=== PATIENT | female | born 1950 | race Caucasian/White ===

== ENCOUNTER 2019-10-17 06:56 | Outpatient (CLI) | payer MEDICARE, BC, SELFPAY ==
--- NOTE | 2019-10-17 07:16 | MR_ITS ---
WS: [id number] INDICATION: Urinary incontinence TECHNIQUE: MRI of the pelvis without gadolinium enhancement. Coronal T1-T2 and STIR imaging. Axial T1 and T2 and sagittal T2 imaging fat sat FINDINGS: Comparison is made to prior CT 1 05/2019 and [facility]. Again seen is the small periurethral cyst with fistulous tract to the urethra. Periurethral cyst measures 11 mm and appears stable. Mild bladd er wall thickening can be seen with chronic cystitis. Bladder is otherwise normal in appearance. No i nguinal lymphadenopathy. No pelvic lymphadenopathy. Normal distal abdominal aorta. Normal bone marrow signal in the pelvis and sacrum. Rectum and sigmoi d colon are normal in appearance. Moderate degenerative arthritis both hips with joint space narrowin g. Moderate lumbar curve lower lumbar spine with degenerative endplate-type changes at L3-4. Mild dis c bulging L3-L4 and L4-L5. MR/MR pelvis wo con* [id number] IMPRESSION: 1. Again seen is the small left periurethral cyst not significantly changed si nce the prior CT measuring approximately 11 mm today. 2. Mild diffuse bladder wall thickening can be seen with chronic cystitis. Sin dder is otherwise normal in appearance. 3. No inguinal or pelvic lymphadenopathy. 4. Normal sigmoid colon and rectum. 5. Lumbar curve convex left with degenerative endplate-type changes at L3-4.
== END 2019-10-17 06:57 | disposition home or self-care (01) ==
LOC: RADSHAW 07:04
PROVIDERS: Family Provider Family Medicine; Visit Provider Nurse Practitioner Family
DX: R32 Unspecified urinary incontinence (principal); N36.8 Other specified disorders of urethra
CPT/HCPCS: 72195

== ENCOUNTER → 2019-10-18 12:57 | Outpatient (BNVA) | payer MEDICARE, OTHER, SELFPAY | PROVIDERS: Family Provider Family Medicine; PCP Family Medicine; Visit Provider Urology | DX: N39.9 Disorder of urinary system, unspecified (principal); R35.8 Other polyuria; N39.44 Nocturnal enuresis; N39.8 Other specified disorders of urinary system; N39.41 Urge incontinence | CPT/HCPCS: 81001 ==

== ENCOUNTER → 2019-11-07 09:54 | Outpatient (BNVA) | payer MEDICARE, BC, SELFPAY | PROVIDERS: Family Provider Family Medicine; PCP Family Medicine; Visit Provider Specialist | DX: G40.909 Epilepsy, unspecified, not intractable, without status epilepticus (principal); Z87.891 Personal history of nicotine dependence | CPT/HCPCS: 99214 ==

== ENCOUNTER 2019-11-07 11:48 | Outpatient (CLI) | payer MEDICARE, BC, SELFPAY ==
--- NOTE | 2019-11-07 12:00 | XR_ITS ---
WS: [id number] Thoracic spine, 3 views, 11/07/2019 Clinical Data: scoliosis Comparison: None. Findings: No compression fractures are seen. The disc heights are normal. There is a slight dextroscoliosis. Anterior osteoarthritic changes present at all vertebral body leve ls. Osteoporosis is seen. There are clips in the right upper quadrant from a cholecystectomy. XR/XR thoracic spine 3V* [id number] Impression: 1. Osteoarthritis and osteoporosis. 2. Dextroscoliosis.
--- NOTE | 2019-11-07 12:00 | XR_ITS ---
WS: [id number] Lumbar spine, 3 views, 11/07/2019 Clinical Data: scoliosis Comparison: None. Findings: No compression fractures or subluxation is seen. There is a levorotoscoliosis.Degenerative disc narro wing is present at L2-L3, L3-L4 and L5-S1. Anterior osteoarthritic spurring is present from L2 throug h L5. There is loss of the normal lordotic curvature. The transverse processes and SI joints are not remarkable. There is a large amount of fecal material throughout colon. Clips in the right upper quad rant from a cholecystectomy are seen. XR/XR lumbar spine 2-3V* [id number] Impression: 1. Levorotoscoliosis. 2. Osteoarthritis and degenerative disc disease from L2 through L5.
--- NOTE | 2019-11-07 12:00 | XR_ITS ---
WS: [id number] Left hip, AP and frog leg, AP pelvis, 11/07/2019 Clinical Data: hip pain Comparison: None. Findings: No fractures or dislocations are seen. The hip joints are intact. The soft tissues are not remarkable . The adjacent pelvis is normal. The right hip show sclerosis and narrowing. The left hip shows mild narrowing but no significant sclerosis of the acetabulum. The SI joints and pubic symphysis are unremarkable. Osteoarthritic change of the lower lumbar vertebr al bodies is present. XR/XR hip LT 2-3V wo/w pel* [id number] Impression: 1. Narrowing and sclerosis of the right hip. 2. Mild narrowing of the left hip.
== END 2019-11-07 11:49 | disposition home or self-care (01) ==
LOC: RAD 11:57
PROVIDERS: Family Provider Family Medicine; PCP Family Medicine; Visit Provider Specialist
DX: M41.84 Other forms of scoliosis, thoracic region (principal); M47.894 Other spondylosis, thoracic region; M81.0 Age-related osteoporosis without current pathological fracture; M41.86 Other forms of scoliosis, lumbar region; M47.896 Other spondylosis, lumbar region; M25.552 Pain in left hip
CPT/HCPCS: 72072; 72100; 73502

== ENCOUNTER → 2020-03-06 11:25 | Outpatient (BNVA) | payer MEDICARE, BC, SELFPAY | PROVIDERS: Family Provider Family Medicine; PCP Family Medicine; Visit Provider Nurse Practitioner Family | DX: M25.562 Pain in left knee (principal) | CPT/HCPCS: 73560 ==

== ENCOUNTER → 2020-04-03 10:58 | Outpatient (BNVA) | payer MEDICARE, OTHER, SELFPAY | PROVIDERS: Family Provider Family Medicine; PCP Family Medicine; Visit Provider Specialist | DX: S86.912A Strain of unspecified muscle(s) and tendon(s) at lower leg level, left leg, initial encounter (principal); G40.219 Localization-related (focal) (partial) symptomatic epilepsy and epileptic syndromes with complex partial seizures, intractable, without status epilepticus; M48.061 Spinal stenosis, lumbar region without neurogenic claudication | CPT/HCPCS: 99214 ==

== ENCOUNTER 2020-04-04 11:20 | Outpatient (CLI) | payer MEDICARE, OTHER, SELFPAY ==
--- NOTE | 2020-04-04 11:30 | MM_ITS ---
WS: [id number] Bilateral screening digital mammogram, 04/04/2020 Clinical Data: screening mammogram Comparison: 02/16/2017, 07/17/2015, 06/17/2010, 11/23/2006. Findings: The breast parenchymal pattern shows fat replacement. No spiculated masses or clustered calcification s are seen. There are no secondary signs of carcinoma. MM/[place] [id number] Impression: 1. Negative bilateral mammogram unchanged. 2. Recommend annual screening mammograms. BIRADS: 1-Negative FOLLOW UP: 1 Year Follow-up The CAD billing checker was used.
== END 2020-04-04 11:21 | disposition home or self-care (01) ==
LOC: RADSHAW 11:27
PROVIDERS: PCP Family Medicine; Visit Provider Family Medicine
DX: Z12.31 Encounter for screening mammogram for malignant neoplasm of breast (principal)
CPT/HCPCS: 77067

== ENCOUNTER 2020-04-11 15:54 | Outpatient (CLI) | payer MEDICARE, OTHER, SELFPAY ==
--- NOTE | 2020-04-11 16:00 | MR_ITS ---
WS: [id number] MRI LEFT KNEE NONCONTRAST TECHNIQUE: Axial PD, coronal PD fat sat, coronal PD, sagittal PD, and sagittal PD fat-sat images obta ined. CLINICAL INFORMATION: M25.569 Pain in unspecified knee COMPARISON: None. FINDINGS: Distal quadriceps and patella tendons are intact. Slightly hypertrophic patella. Small suprapatellar effusion. Anterior and posterior cruciate ligament are intact. Chronic thinning of the medial and lateral meniscus. Horizontal tear involving the lateral meniscus e xtending to the articular surface posterior horn. Chronic intrasubstance signal abnormality involving the medial meniscus. Moderate chondromalacia patella. No subchondral edema. Normal medial and lateral patellar retinaculum . Small popliteal cyst. Small popliteal cyst measures 1.5 x 1.0 cm. Medial and lateral collateral lig aments appear intact. No significant subchondral edema along the medial or lateral tibial plateau. MR/MR knee LT wo con* [id number] IMPRESSION: 1. Moderate degenerative arthritis with medial and lateral joint space narrowi ng. 2. Hypertrophic patella with grade III chondromalacia. No subchondral edema. S lightly hypertrophic patella. Small suprapatellar effusion. 3. Anterior and posterior cruciate ligaments are intact. 4. Horizontal tear involving the lateral meniscus extending to the posterior h orn articular surface. Chronic intrasubstance signal abnormality involving the medial meniscus. 5. Small popliteal cyst measuring 1.5 x 1.0 CM.
--- NOTE | 2020-04-11 16:45 | MR_ITS ---
WS: [id number] MRI LUMBAR SPINE NONCONTRAST TECHNIQUE: Sagittal T1, T2 and STIR imaging. Axial T1 and T2 imaging. CLINICAL INFORMATION: R26.9 Unspecified abnormalities of gait and mobility COMPARISON: None. FINDINGS: Mild lumbar curve. No acute compression. Degenerative disc disease L3-L4 and L4-L5 with endplate dege nerative changes L3-4. L1-L2: Normal. L2-L3: Mild disc bulging with slight effacement of ventral thecal sac. Slight impingement on the righ t subarticular recess and traversing right L3 nerve root. Mild right and no significant left foramina l narrowing. Mild to moderate facet arthropathy. L3-L4: Disc osteophyte complex with endplate ridging. Central disc protrusion with impingement subart icular recess. Moderate central canal stenosis. Mild right and no significant left foraminal narrowin g. Moderate facet arthropathy. L4-L5: Disc osteophyte complex with endplate ridging. Impingement traversing left L5 nerve root. Mild to moderate left and no significant right foraminal narrowing. Moderate facet arthropathy. L5-S1: No significant disc bulging. Spinal canal and foramen are patent. Mild facet arthropathy. Visualized pelvic bony structures: Normal. Paravertebral soft tissues: Normal. MR/MR lumbar spine wo con* [id number] IMPRESSION: 1. Mild lumbar curve. No acute compression. Disc bulging worse at L3-L4 L4-L5. Slight anterolisthesis L3 on L4. 2. Moderate central canal stenosis L3-4 with shallow central disc protrusion a nd impingement on the subarticular recess bilaterally. 3. Mild central canal stenosis L4-5 with impingement traversing left L5 nerve root and subarticular recess. 4. Mild to moderate right L3-4 and left L4-5 foraminal narrowing. 5. Moderate facet arthropathy worse at L3-L4 and L4-L5. 6. Annular bulging L2-3 with impingement traversing right L3 nerve root with m ild right foraminal narrowing.
== END 2020-04-11 15:55 | disposition home or self-care (01) ==
LOC: RADSHAW 16:02
PROVIDERS: PCP Family Medicine; Visit Provider Specialist
DX: M25.562 Pain in left knee (principal); R26.9 Unspecified abnormalities of gait and mobility; M48.061 Spinal stenosis, lumbar region without neurogenic claudication; M51.26 Other intervertebral disc displacement, lumbar region; M47.816 Spondylosis without myelopathy or radiculopathy, lumbar region; M17.12 Unilateral primary osteoarthritis, left knee; S83.282A Other tear of lateral meniscus, current injury, left knee, initial encounter; M71.22 Synovial cyst of popliteal space [Baker], left knee; M22.42 Chondromalacia patellae, left knee; X58.XXXA Exposure to other specified factors, initial encounter
CPT/HCPCS: 72148; 73721

== ENCOUNTER 2020-05-02 09:00 | Day surgery (SDC) | payer MEDICARE, OTHER, SELFPAY ==
[2020-05-01 09:39] VITALS: BMI 37.9
[2020-05-02] VITALS (10 sets, daily range): BP systolic 107–169; BP diastolic 53–98; PULSE 60–81; RESP 16–18; TEMP 36.3–37.3; O2SAT 90–99
--- NOTE | 2020-05-02 09:25 | W.PM.OPSUD ---
Surgery/Procedure H&P Update DATE OF PROCEDURE: May 02, 2020 DATE H&P PERFORMED: 04/16/20 PREOP DIAGNOSIS: LEFT LATERAL MENISCAL TEAR PLANNED PROCEDURE: Operation Date: 05/02/20 10:20 Proposed Procedures p Knee Arthroscopy left [id number] S83.282Awith lateral meniscectomy(Left) - Grant Brown MD
[2020-05-02] MEDS: sodium chloride 0.9% 1,000 ML 30 ML IV (09:36)
--- NOTE | 2020-05-02 10:14 | ANES.PREANE2 ---
Pre-Anesthetic Assessment Pre-Anesthetic Assessment: Height/Weight: Height 1.68 m Weight 106.594 kg Temp Pulse Resp BP Pulse Ox 99.1 F 66 18 169/98 96 05/02/20 09:35 05/02/20 09:35 05/02/20 09:35 05/02/20 09:35 05/02/20 09:35 Preop Diagnosis: LEFT LATERAL MENISCAL TEAR Proposed Procedure: Operation Date: 05/02/20 10:20 Proposed Procedures p Knee Arthroscopy left [id number] S83.282Awith lateral meniscectomy(Left) - Grant Brown MD Familial anesthetic complications: none Was Beta Liz taken within 24 hours: Yes Last intake: Intake Last Liquid Date 05/01/20 Last Liquid Time 21:00 Last Solid Date 05/01/20 Last Solid Time 21:00 Social: Social History: No alcohol and No tobacco Exam: Pre-Anes Outpt Exam: alert, oriented x 3, clear to auscultation bilaterally and regular rate & rhythm Airway: Cervical ROM: WNL MP: 3 Dentition: Chipped Pulmonary: Pulmonary: None reported CV/HEM: CV/HEM: HTN GI: GI: GERD Comments: chronic pancreatitis Metabolic: Metabolic: Morbid obesity Neuropsych: Neuropsych: Seizure Comments: lupus Anesthetic Plan: ASA status: 2 Anesthesia: General Risk of > 500 ml blood loss (7ml/kg in children): No Meds/Allergies Current Medications: Current Medications Generic Name Dose Route Start Last Admin Trade Name Freq PRN Reason Stop Dose Admin Sodium Chloride 1,000 mls @ 30 ml s/hr 05/02/20 07:45 05/02/20 09:36 Sodium Chloride 0.9% IV 05/03/20 07:44 30 mls/hr .Q24H LUISA Administration PFSH Anesthesia PFSH: Medical History Diabetes Nocturnal and diurnal enuresis Polyuria Urgency incontinence Vaginal voiding Surgical History H/O breast biopsy H/O cataract extraction S/P inguinal hernia repair Family History Mother , at age 72 Hypertension Family/Other Diabetes Stroke Father , at age 90 No problems noted. Social History (Reviewed 05/01/20 @ 09:32 by Page Cabral Smoking and tobacco status: former smoker Quit status (tobacco): has quit using tobacco Year quit tobacco: 1989 Alcohol intake: never Marital status: Current occupational status: retired History of recent travel: No Data Anesthesia Cardiac Studies: No Data to Display
[2020-05-02] MEDS: morphine 4 mg/mL SDV 1 mL 8 MG IM (10:46)
--- NOTE | 2020-05-02 11:24 | PM.OP ---
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 She had generalized thinning over the lateral aspect of the medial femoral condyle involving perhaps 50% of the thickness of the cartilage with unstable peripheral flaps and fissures. She had mild generalized thinning fibrillation over the medial facet of the patella Condition: stable Disposition: PACU Procedure: Ms. Brasher was taken to the operating room and given a general anesthesia. She was prepped and draped in the supine position with a tourniquet on the left thigh. She was given 2 g of Ancef. The knee was infiltrated with 30 cc of 0.5% Marcaine and 10 mg of morphine. A timeout was performed. The knee was initially entered through a standard inferior medial and inferior lateral portal. The diagnostic portion of the osseous performed. Initial attention was paid the medial joint. Areas of thinning with peripheral flaps of cartilage were seen over the lateral aspect the medial femoral condyle utilizing an incisor shaver and [employer]hew Werewolf probe peripheral unstable cartilage is debrided back to a stable rim. And no point was exposed subchondral bone identified. The leg was then placed in a [id number] position the lateral compartment was inspected revealing complex tearing of the lateral meniscus. Utilizing a basket initially the central unstable flap was debrided. This brought us back to an area of the superior and inferior horizontal cleavage which was debrided back as well decompressed 50% of the posterior lateral meniscus behind. The rim was cleaned up with an incisor shaver and [employer]hew Werewolf wand leaving a stable base of tissue. Attention was focused on the patella. Utilizing the Douglas [employer] Nephew Werewolf probe the medial facet of patella was lightly debrided back with a werewolf probe. The area of cartilage damage appeared quite superficial and no exposed subchondral bone was identified. The knee was irrigated with saline. Portals were closed with 3-0 Prolene. Sterile dressings were applied. The patient was extubated and taken to recovery in stable condition.
[2020-05-02] MEDS: fentaNYL 50 mcg/mL INJ 2mL IVP (11:29)
--- NOTE | 2020-05-02 12:07 | SUR.PHASEI ---
1144 PT AWAKE ALERT TO OPS PER CART PT ASSISTED UP TO BSC PT ALERT AND TALKATIVE WITH OPS NURSE KODAK.
[2020-05-02] MEDS: oxyCODONE-APAP 5-325 mg Tablet 1 TAB PO (12:19)
--- NOTE | 2020-05-02 16:05 | ANE.PACU2 ---
Inpatient post-anesthesia follow up: Airway intact: Yes Vital signs: Temperature 97.3 F Pulse Rate 60 Respiratory Rate 18 Blood Pressure 126/78 Pulse Oximetry 93 Oxygen Delivery Me thod Room Air Oxygen Flow Rate 8 Fraction of Inspir ed Oxygen Hydration adequate: Yes Nausea and vomiting: No Pain level: 1 Mental status: Baseline
== END 2020-05-02 13:57 | disposition home or self-care (01) ==
PROVIDERS: PCP Family Medicine; Visit Provider Orthopaedic Surgery
PROC: (CPT 29870; principal; 2020-05-02 10:20)
DX: S83.272A Complex tear of lateral meniscus, current injury, left knee, initial encounter (principal); I10 Essential (primary) hypertension; E66.01 Morbid (severe) obesity due to excess calories; M32.9 Systemic lupus erythematosus, unspecified; K86.1 Other chronic pancreatitis; E11.9 Type 2 diabetes mellitus without complications; X58.XXXA Exposure to other specified factors, initial encounter; Z87.891 Personal history of nicotine dependence
CPT/HCPCS: 29881; 12345; J0690; J1100; J1885; J2250; J2270; J2370; J2405; J2704; J3010; J3490; J7030

== ENCOUNTER 2020-05-22 06:00 | Outpatient (RCR) | payer MEDICARE, OTHER, SELFPAY | END 2020-06-12 23:59 | disposition home or self-care (01) | LOC: TPT 06:00 | PROVIDERS: PCP Family Medicine; Referring Provider Orthopaedic Surgery; Visit Provider Orthopaedic Surgery | DX: Z47.89 Encounter for other orthopedic aftercare (principal) | CPT/HCPCS: 97161 ==

== ENCOUNTER 2020-06-25 14:27 | Emergency (ER) | payer MEDICARE, BC, SELFPAY ==
[2020-06-25 14:33] VITALS: BP 151/87; PULSE 91; RESP 20; TEMP 36.8; O2SAT 99; BMI 37.9
--- NOTE | 2020-06-25 16:29 | ECG_ITS ---
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 Measurements Intervals [place] Rate: 79 P: 16 NC: 185 QRS: -19 QRSD: 102 T: 12 QT: 351 QTc: 403 Interpretive Statements SINUS RHYTHM MODERATE VOLTAGE CRITERIA FOR LVH, CONSIDER NORMAL VARIANT [MEETS CRITERIA IN ONE OF: R(aVL), S(V1), R(V5), R(V5/V6)+S(V1)] No previous ECG available for comparison Electronically Signed On 06-27-2020 20:37:51 CDT by Reza Peralta M.D. [id number]
[2020-06-25 16:44] VITALS: RESP 16; O2SAT 97
[2020-06-25 16:44] LABS: Basophils # 0.1 10^3/uL (0.0-0.1); Basophils % 0.8 %; Eosinophils % 0.4 %; Hematocrit 42.8 % (37.0-47.0); Hemoglobin 13.9 g/dL (11.5-15.3); Lymphocytes # 0.3 10^3/uL (0.8-4.8); Lymphocytes % 4.6 %; Mean Corpuscular HGB Conc 32.5 g/dL (30.0-36.0); Mean Corpuscular Hemoglobin 27.9 pg (28.0-34.0); Mean Corpuscular Volume 85.9 fL (81-99); Mean Platelet Volume 10.5 fL (7.4-10.4); Monocytes # 0.9 10^3/uL (0.2-0.9); Monocytes % 12.5 %; Neutrophils # 6.04 10^3/uL (1.8-7.7); Neutrophils % 81.4 %; Nucleated Red Blood Cells % 0 %; Platelet Count 317 10^3/cmm (130-400); Red Blood Count 4.98 10^6/uL (4.1-5.3); Red Cell Distribution Width 13.6 % (12.1-15.1); White Blood Count 7.4 10^3/uL (4.0-10.0)
[2020-06-25] MEDS: sodium chloride 0.9% 500 ML 999 ML IV (16:44)
[2020-06-25] MEDS: ondansetron 2 mg/ML SDV 2 mL 4 MG IVP (16:44)
[2020-06-25] MEDS: HYDROmorphone 1 mg/mL INJ 1 mL 0.5 MG IVP (16:44)
--- NOTE | 2020-06-25 17:03 | ED_ITS ---
HPI - Abdominal Pain General: Chief Complaint: Abdominal Pain Stated Complaint: N/V, PANCREATITIS Time Seen by Provider: 06/25/20 16:20 History of Present Illness: HPI narrative: This patient is a 69-year-old female who presents today with upper abdominal pain. She states she has a history of pancreatitis and this feels the same. Said she has been having episodes off and on over the past 4 months but usually they last 10 or 15 minutes and then go away. Today she had an episode about 1030 that lasted longer than usual. It went away and then came back about 1230 and has been constant since then. She describes pain in her epigastrium that radiates around her right side and up into her chest. She does not have a gallbladder. She has been told that her pancreatitis is from some enzymes that she does not have. She has a history of lupus as well. She takes Creon. She had an endoscopy a few years ago and they told her she had some sort of spot at the junction of her esophagus and stomach that was festered up but she was not given any treatment for it. She was having similar symptoms then. She has had vomiting and diarrhea. No fevers. No cough. MD elicited complaint: abdominal pain Pertinent past history: other (Pancreatitis, possibly gastric ulcer) Onset (ago): month(s) (Intermittent episodes for the past 4 months, constant since 1230) Pain Consistency: constant and intermittent Location: Epigastric Severity: severe Quality: aching and sharp Radiation: RUQ, back and chest Migration to: no migration Exacerbating factors: eating and movement Relieving factors: nothing Associated Symptoms: Reports diarrhea and vomiting; Denies chills and fever(s) Review of Systems General: Reports: 10 or more systems reviewed and unremarkable except in HPI and below Const: Reports: fatigue and malaise; Denies: fever(s) or chills Eyes: Denies: change in vision ENMT: Denies: odynophagia Card: Denies: chest pain or swelling of feet/ankles Resp: Denies: dyspnea, productive cough or non-productive cough GI: Reports: vomiting and diarrhea : Denies: flank pain or difficulty voiding Musc: Denies: neck pain or back pain Skin/Breast: Denies: rash Neuro: Denies: headache(s), numbness in extremities or weakness in extremities Samy/Lymph: Denies: easy bruising or easy bleeding PFSH ED PFSH: Medical History Diabetes Nocturnal and diurnal enuresis Polyuria Urgency incontinence Vaginal voiding Surgical History H/O breast biopsy H/O cataract extraction S/P inguinal hernia repair Family History Mother , at age 72 Hypertension Family/Other Diabetes Stroke Father , at age 90 No problems noted. Social History Smoking and tobacco status: former smoker Quit status (tobacco): has quit using tobacco quit tobacco: 1989 Alcohol intake: never Marital status: Current occupational status: retired History of recent travel: No Physical Exam Const: COMMON NORMALS: patient oriented x3, no limitations and alert GENERAL APPEARANCE: cooperative HENMT: HEAD & SCALP: normal to inspection FACE & SINUS: normal facial exam Eye: GENERAL EYE: appearance normal, both eyes and all related structures Neck/C-Spine: COMMON NORMALS: supple, no meningeal signs and no JVD Chest: COMMONS NORMALS: normal inspection of the chest Resp: COMMON NORMALS: normal respiratory effort, No use of accessory muscles and clear to auscultation bilaterally AUSCULTATION: clear to auscultation bilaterally Cardio: COMMON NORMALS: no JVD, regular rate, regular rhythm and No murmurs present (Cardio) RATE: regular rate RHYTHM: regular rhythm GI: COMMON NORMALS: Normal to inspection, nondistended, normoactive bowel sounds present INSPECTION: Yes normal to inspection AUSCULTATION: Yes normoactive bowel sounds PALPATION: Yes Tenderness to palpation present (GI) (Epigastric) Details: RUQ Back/Pelvis: COMMON NORMALS: thoracic and lumbar spine normal to inspection Extremity: COMMON NORMALS: normal to inspection Neuro: COMMON NORMALS: patient oriented x3, moves all extremities, no focal motor deficits and no sensory deficits noted SENSORIUM/ORIENTATION: Yes alert MENINGEAL SIGNS: Yes no meningeal signs Psych: COMMON NORMALS: mental status grossly normal, cooperative and normal affect Skin: COMMON NORMALS: no rashes or lesions noted and turgor normal GENERAL SKIN EXAM: no rashes or lesions noted and turgor normal Course ED course: Patient with a history of pancreatitis. She was feeling better after treatment in the ER. I changed her meds to pantoprazole from famotidine. She has good follow-up. She understands to return if she cannot tolerate fluid her pain is out of control. Vital Signs: Vital signs: Vital Signs Temperature 98.2 F 06/25/20 14:33 Pulse Rate 75 06/25/20 19:08 Respiratory Rate 18 06/25/20 19:08 Blood Pressure 141/88 06/25/20 19:08 Pulse Oximetry 91 06/25/20 19:08 MDM - Abdominal Pain Lab Data: Labs: Lab Results 06/25/20 06/25/20 06/25/20 Range/Units 16:32 16:32 16:32 WBC 7.4 (4.0-10.0) 10^3/ uL RBC 4.98 (4.1-5.3) 10^6/u L Hgb 13.9 (11.5-15.3) g/dL Hct 42.8 (37.0-47.0) % MCV 85.9 (81-99) fL MCH 27.9 L (28.0-34.0) pg MCHC 32.5 (30.0-36.0) g/dL RDW 13.6 (12.1-15.1) % Plt Count 317 (130-400) 10^3/c mm MPV 10.5 H (7.4-10.4) fL Neut % (Auto) 81.4 % Lymph % (Auto) 4.6 % [place] % (Auto) 12.5 % Eos % (Auto) 0.4 % Baso % (Auto) 0.8 % Neut # (Auto) 6.04 (1.8-7.7) 10^3/u L Lymph # (Auto) 0.3 L (0.8-4.8) 10^3/u L [place] # (Auto) 0.9 (0.2-0.9) 10^3/u L Eos # (Auto) 0.0 (0.0-0.8) 10^3/u L Baso # (Auto) 0.1 (0.0-0.1) 10^3/u L Nucleated RBC % (a uto) 0 % Nucleated RBCs # 0.0 /100WBC Sodium 137 (136-145) mmol/L Potassium 4.1 (3.5-5.1) mmol/L Chloride 101 (98-107) mmol/L Carbon Dioxide 23 (22-29) mmol/L Anion Gap 17.1 (5-19) BUN 8 (8-23) mg/dL Creatinine 0.7 (0.5-0.9) mg/dL GFR Calculation 83.5 L (90-130) mL/min Glucose 108 (65-115) mg/dL Calculated Osmolal ity 283 L (285-295) mOsm/k g Lactic Acid 1.2 (0.5-2.2) mmol/L Calcium 9.6 (8.5-10.5) mg/dL Total Bilirubin 0.3 (0.15-1.2) mg/dL AST 15 (0-32) U/L ALT 9 (0-33) U/L Alkaline Phosphata se 96 (35-105) IU/L Troponin T Baselin e (0-10) ng/L Troponin T 120 Min [place] (0-10) ng/L Delta Troponin T (0-10) ABS# Total Protein 7.0 (6.6-8.7) g/dL Albumin 4.4 (3.5-5.2) g/dL Globulin 2.6 (1.3-4.6) g/dL Lipase 24 (13-60) U/L Urine Color (Yellow) Urine Appearance (CLEAR) Urine pH (5-7) Ur Specific Gravit y (1.005-1.030) Urine Protein (Negative) Urine Glucose (UA) (Normal) Urine Ketones (Negative) Urine Blood (Negative) Urine Nitrate (Negative) Urine Bilirubin (Negative) Urine Urobilinogen (Negative) mg/dL Ur Leukocyte Maria Luisa ase (Negative) Urine RBC (0-2) /hpf Urine WBC (0-5) /hpf Ur Squamous Epith Cells (0-5) /hpf Amorphous Sediment Urine Bacteria (NONE) /hpf 06/25/20 06/25/20 06/25/20 Range/Units 16:32 18:46 19:17 WBC (4.0-10.0) 10^3/ uL RBC (4.1-5.3) 10^6/u L Hgb (11.5-15.3) g/dL Hct (37.0-47.0) % MCV (81-99) fL MCH (28.0-34.0) pg MCHC (30.0-36.0) g/dL RDW (12.1-15.1) % Plt Count (130-400) 10^3/c mm MPV (7.4-10.4) fL Neut % (Auto) % Lymph % (Auto) % [place] % (Auto) % Eos % (Auto) % Baso % (Auto) % Neut # (Auto) (1.8-7.7) 10^3/u L Lymph # (Auto) (0.8-4.8) 10^3/u L [place] # (Auto) (0.2-0.9) 10^3/u L Eos # (Auto) (0.0-0.8) 10^3/u L Baso # (Auto) (0.0-0.1) 10^3/u L Nucleated RBC % (a uto) % Nucleated RBCs # /100WBC Sodium (136-145) mmol/L Potassium (3.5-5.1) mmol/L Chloride (98-107) mmol/L Carbon Dioxide (22-29) mmol/L Anion Gap (5-19) BUN (8-23) mg/dL Creatinine (0.5-0.9) mg/dL GFR Calculation (90-130) mL/min Glucose (65-115) mg/dL Calculated Osmolal ity (285-295) mOsm/k g Lactic Acid (0.5-2.2) mmol/L Calcium (8.5-10.5) mg/dL Total Bilirubin (0.15-1.2) mg/dL AST (0-32) U/L ALT (0-33) U/L Alkaline Phosphata se (35-105) IU/L Troponin T Baselin e 6 (0-10) ng/L Troponin T 120 Min [place] 6.00 (0-10) ng/L Delta Troponin T 0 (0-10) ABS# Total Protein (6.6-8.7) g/dL Albumin (3.5-5.2) g/dL Globulin (1.3-4.6) g/dL Lipase (13-60) U/L Urine Color Yellow (Yellow) Urine Appearance Clear (CLEAR) Urine pH 5 (5-7) Ur Specific Gravit y 1.020 (1.005-1.030) Urine Protein Neg (Negative) Urine Glucose (UA) Norm (Normal) Urine Ketones Negative (Negative) Urine Blood 2+ H (Negative) Urine Nitrate Negative (Negative) Urine Bilirubin Neg (Negative) Urine Urobilinogen Norm (Negative) mg/dL Ur Leukocyte Maria Luisa ase Negative (Negative) Urine RBC 5-10 H (0-2) /hpf Urine WBC None (0-5) /hpf Ur Squamous Epith Cells 40-55 H (0-5) /hpf Amorphous Sediment Not Reportable Urine Bacteria Trace (NONE) /hpf Discharge Plan Discharge Patient Disposition: Home Clinical Impression: Abdominal pain Qualifiers: Abdominal location: epigastric Qualified Code(s): R10.13 - Epigastric pain Condition: Stable Prescriptions: New pantoprazole 40 mg tablet,delayed release (DR/EC) 40 mg PO DAILY 28 Days Qty: 30 RF: 0 Discontinued famotidine 40 mg tablet 40 mg PO DAILY RF: 0 No Action fluticasone propionate 50 mcg/actuation spray,suspension 1 spray INTRANASAL .prn RF: 0 (DME) cane Device See Rx Instructions .ROUTE .MEDSUPPLY Qty: 1 RF: 0 betamethasone acet,sod phos [Celestone Soluspan] 6 mg/mL suspension 6 mg INTRA-FAY ONCE Qty: 1 RF: 0 bupivacaine (PF) 0.25 % (2.5 mg/mL) solution 2.5 mg INTRA-FAY ONCE Qty: 2 RF: 0 lidocaine (PF) 10 mg/mL (1 %) solution 10 mg INTRA-FAY ONCE Qty: 2 RF: 0 Gel-One 30 mg/3 mL syringe 30 mg INTRA-FAY ONCE Qty: 3 RF: 0 Vimpat 150 mg tablet 150 mg PO BID Qty: 60 RF: 5 losartan 25 mg tablet See Rx Instructions .ROUTE .COMPLEX Qty: 180 RF: 0 oxybutynin chloride 5 mg tablet 5 mg PO BID Qty: 60 RF: 2 gabapentin 100 mg capsule 100 mg PO BID Qty: 60 RF: 4 metoprolol tartrate 25 mg tablet See Rx Instructions .ROUTE .COMPLEX Qty: 60 RF: 2 venlafaxine 75 mg capsule,extended release 24hr 75 mg PO DAILY Qty: 90 RF: 0 trazodone 100 mg tablet 100 mg PO DAILY Qty: 30 RF: 0 Creon 24,000-76,000 -120,000 unit capsule,delayed release(DR/EC) 1 cap PO DAILY RF: 0 Percocet 5-325 mg tablet 1 tab PO Q4H PRN (Reason: pain) Qty: 30 RF: 0 Discharge Orders: Discharge Order (Routine); Ordered 06/25/20 Ordered By: Daylin Seymour Referrals: Daylin Seymour MD [Emergency Provider] - Kendra Dixon MD [Primary Care Provider] - Discharge Diet: Low Fat and Clear Liquid Discharge Activity: Resume usual activity Patient Instructions: Abdominal Pain (ED) Activity Restrictions/Additional Instructions: Gradually increase diet from clear liquids to low fat. Return to the ED if worse pain, vomiting, fever or any other new or worse symptoms. Follow up with your doctor for further evaluation if not improving. Discharge Date/Time: 06/25/20 19:55 Coding Level of Care Code ED Online [employer]ist for Chg Fwd Exam Comprehensive
[2020-06-25 17:14] LABS: Alanine Aminotransferase 9 U/L (0-33); Albumin Level 4.4 g/dL (3.5-5.2); Alkaline Phosphatase 96 IU/L (35-105); Aspartate Amino Transferase 15 U/L (0-32); Blood Urea Nitrogen 8 mg/dL (8-23); Calcium 9.6 mg/dL (8.5-10.5); Carbon Dioxide 23 mmol/L (22-29); Chloride 101 mmol/L (98-107); Creatinine Clr Calc Pharmacy 84.2605; Globulin 2.6 g/dL (1.3-4.6); Glomerular Filtration Rate 83.5 mL/min (90-130); Glucose 108 mg/dL (65-115); Lipase 24 U/L (13-60); Osmolality Calculated 283 mOsm/kg (285-295); Sodium 137 mmol/L (136-145); Total Bilirubin 0.3 mg/dL (0.15-1.2)
[2020-06-25 17:15] LABS: Lactic Sepsis W/Reflex 1.2 mmol/L (0.5-2.2)
[2020-06-25 17:16] LABS: Troponin(5th) Baseline 6 ng/L (0-10)
[2020-06-25 17:17] LABS: Anion Gap 17.1 (5-19); Potassium 4.1 mmol/L (3.5-5.1)
[2020-06-25] MEDS: pantoprazole 40 mg SDV 80 MG IVP (18:50)
[2020-06-25] MEDS: lidocaine 2% viscous 15 ML, aluminum-mag hydrox-simethicon 30 ML, sucralfate oral liq 1 GM PO (18:50)
[2020-06-25 19:08] VITALS: BP 141/88; PULSE 75; RESP 18; O2SAT 91
[2020-06-25 19:19] LABS: Troponin 5 2HR Delta 0 ABS# (0-10)
[2020-06-25 19:47] LABS: Add Urine Microscopic? YES; Bilirubin Urine Neg (Negative); Blood Urine 2+ (Negative); Glucose Urine UA Norm (Normal); Ketones Urine Negative (Negative); Leukocyte Esterase Urine Negative (Negative); Nitrate Urine Negative (Negative); Protein Urine Neg (Negative); Urine Appearance Clear (CLEAR); Urine Color Yellow (Yellow); Urobilinogen Urine Norm (Negative); pH Urine 5 (5-7)
[2020-06-25 19:55] LABS: Bacteria Urine TRACE /hpf
[2020-06-25 19:57] LABS: Add Urine Culture? No; Squamous Epithelial Cell Urine 40-55 /hpf (0-5)
== END 2020-06-25 19:55 | disposition home or self-care (01) ==
PROVIDERS: Nurse Practitioner Family; Emergency Provider Emergency Medicine; PCP Family Medicine
DX: R10.13 Epigastric pain (principal); E11.9 Type 2 diabetes mellitus without complications; Z87.891 Personal history of nicotine dependence
CPT/HCPCS: 12345; 80053; 81001; 83605; 83690; 84484; 85025; 93005; 96361; 96374; 96375; 99283; 99284; C9113; J1170; J2405; J7040

== ENCOUNTER 2020-07-01 09:43 | Inpatient (IN) | payer MEDICARE, BC, SELFPAY ==
[2020-07-01] VITALS (8 sets, daily range): BP systolic 95–184; BP diastolic 49–93; PULSE 69–104; RESP 14–20; TEMP 37.2–38.1; O2SAT 90–97
--- NOTE | 2020-07-01 10:30 | XRR_ITS ---
PROCEDURE INFORMATION: Exam: XR Chest, 1 View Exam date and time: 07/01/2020 10:42 AM Age: 69 years old Clinical indication: Other: Covid symptoms; Prior surgery; Surgery type: Lumpectomy; Additional info: Syncope TECHNIQUE: Imaging protocol: XR of the chest Views: 1 view. COMPARISON: No relevant prior studies available. FINDINGS: Lungs: Unremarkable. No consolidation. Pleural space: Unremarkable. No pleural effusion. No pneumothorax. Heart/Mediastinum: Unremarkable. No cardiomegaly. Bones/joints: Unremarkable. XR/XR chest 1V portable [id number] IMPRESSION: No acute findings.
[2020-07-01 11:31] LABS: Basophils % 0.2 %; Hematocrit 43.4 % (37.0-47.0); Lymphocytes # 0.6 10^3/uL (0.8-4.8); Lymphocytes % 12.3 %; Mean Corpuscular HGB Conc 32.3 g/dL (30.0-36.0); Mean Corpuscular Hemoglobin 27.6 pg (28.0-34.0); Mean Corpuscular Volume 85.4 fL (81-99); Mean Platelet Volume 10.3 fL (7.4-10.4); Monocytes # 0.7 10^3/uL (0.2-0.9); Monocytes % 14.8 %; Neutrophils # 3.58 10^3/uL (1.8-7.7); Neutrophils % 72.5 %; Nucleated Red Blood Cells % 0 %; Platelet Count 224 10^3/cmm (130-400); Red Blood Count 5.08 10^6/uL (4.1-5.3); Red Cell Distribution Width 13.4 % (12.1-15.1); White Blood Count 4.9 10^3/uL (4.0-10.0)
[2020-07-01] MEDS: ondansetron 2 mg/ML SDV 2 mL 4 MG IVP (11:33)
[2020-07-01] MEDS: sodium chloride 0.9% 500 ML 999 ML IV (11:34)
--- NOTE | 2020-07-01 11:34 | W.ED.SOB ---
HPI - SOB/Dyspnea General: Chief Complaint: Shortness of Breath/Dyspnea Stated Complaint: All COVID symptoms except SOB Time Seen by Provider: 07/01/20 10:12 History of Present Illness: HPI Narrative: 69-year-old female patient presents to the emergency department with 10-day history of nausea vomiting diarrhea. She reports diarrhea episodes at least 2-3 times daily. She states difficulty with tolerating p.o. fluids. She reports grandchildren have been ill with COVID-19. She reports partial custody of her grandchildren. She reports has been trying to care for her who is diabetic with similar symptoms. She reports cough increased shortness of breath, worsening symptoms 2 days ago. She reports productive sputum yellow, white. 10 pound weight loss past 10 days. Experiencing dizzy symptoms, worse with exertion, positive lupus per history. MD elicited complaint: shortness of breath, cough and pain with inspiration Pertinent past history: other (Lupus) Onset (ago): day(s) (10) Timing: constant and progressively worsening Severity: moderate Exacerbating factors: nothing Relieving factors: nothing Associated symptoms: Reports chest congestion, cough, diaphoresis, lightheadedness, nausea and vomiting Treatment prior to arrival: none Review of Systems General: Reports: 10 or more systems reviewed and unremarkable except in HPI and below Const: Reports: diaphoresis Eyes: Denies: blurry vision or eye redness ENMT: Denies: throat pain, dental pain or disequilibrium Card: Reports: lightheadedness Resp: Reports: productive cough, change in phlegm color and chest congestion GI: Reports: nausea, vomiting and diarrhea : Denies: difficulty voiding or dysuria Musc: Denies: back pain Skin/Breast: Denies: rash or pruritus Neuro: Reports: headache(s) and weakness in extremities; Denies: behavioral changes Psych: Reports: anxiety (Related to illness); Denies: depression Samy/Lymph: Denies: easy bruising PFSH ED PFSH: Medical History (Updated 07/01/20 @ 16:33 by Daniel Spence MD) Diabetes FH: total abdominal hysterectomy and bilateral salpingo-oophorectomy H/O chronic pancreatitis Nocturnal and diurnal enuresis Polyuria Seizure disorder Urgency incontinence Vaginal voiding Surgical History (Updated 07/01/20 @ 16:20 by Daniel Spence MD) H/O arthroscopic knee surgery H/O breast biopsy H/O cataract extraction H/O shoulder surgery S/P inguinal hernia repair Family History Mother , at age 72 Hypertension Cancer Pancreatic Family/Other Diabetes Stroke Father , at age 90 Cancer Esophageal Brother Cancer Hodgkin's lymphoma Social History Smoking and tobacco status: former smoker Quit status (tobacco): has quit using tobacco Year quit tobacco: 1989 Alcohol intake: never Marital status: Current occupational status: retired History of recent travel: No Physical Exam Const: COMMON NORMALS: no acute distress and alert GENERAL APPEARANCE: well kempt and ill appearing ORIENTATION/CONSCIOUSNESS: Yes awake, Yes oriented to person, Yes oriented to place and Yes oriented to time HENMT: COMMON NORMALS: normocephalic, external ears normal and Normal external nose present HEAD & SCALP: normocephalic FACE & SINUS: normal facial exam, sinuses nontender and face symmetric NOSE: Normal external nose present EXTERNAL EAR: Yes external ears normal MOUTH: other (Dry mucous membranes) THROAT: posterior oropharynx normal Eye: COMMON NORMALS: Equal, round and reactive pupils present and EOMs intact bilaterally GENERAL EYE: appearance normal, both eyes and all related structures PUPIL: Yes Equal, round and reactive pupils present Neck/C-Spine: COMMON NORMALS: full ROM and no lymphadenopathy GENERAL: Yes normal visual inspection and Yes trachea midline CERVICAL SPINE: Yes cervical ROM normal Lymph: LYMPHATIC: no lymphadenopathy noted Chest: COMMONS NORMALS: normal inspection of the chest Resp: COMMON NORMALS: normal respiratory effort EFFORT & INSPECTION: Yes able to speak in complete sentences AUSCULTATION: rhonchi and wheezes Cardio: COMMON NORMALS: regular rhythm, S1 normal heart sound present, S2 normal heart sound present and Peripheral pulses 2+ throughout RHYTHM: regular rhythm HEART SOUNDS: S1 normal heart sound present and S2 normal heart sound present PERIPHERAL PULSES: Peripheral pulses 2+ throughout GI: COMMON NORMALS: Soft to palpation and non-tender INSPECTION: Yes normal to inspection PALPATION: Yes Soft to palpation : COMMON NORMALS: Yes no CVA tenderness BLADDER/KIDNEY EXAM: Yes no CVA tenderness Back/Pelvis: COMMON NORMALS: no CVA tenderness and thoracic and lumbar spine normal to inspection Extremity: COMMON NORMALS: normal to inspection and capillary refill normal Neuro: COMMON NORMALS: no focal motor deficits SENSORIUM/ORIENTATION: Yes alert, Yes oriented to person, Yes oriented to place and Yes oriented to time Psych: COMMON NORMALS: mental status grossly normal, Normal thought process present and cooperative APPEARANCE: Yes well kempt ACTIVITY/MOTOR BEHAVIOR: Yes appropriate eye contact THOUGHT PROCESS: Normal thought process present Skin: COMMON NORMALS: no rashes or lesions noted and turgor normal GENERAL SKIN EXAM: no rashes or lesions noted and turgor normal Course ED course: 69-year-old female patient presents to the emergency department with Covid symptoms. Covid contact, grandchildren. Ill symptoms x10 days. Serology testing pending at this time, case discussed with Dr. Seymour, transfer of care due to possible need of admission. Vital Signs: Vital signs: Vital Signs Temperature 100.5 F H 07/01/20 15:47 Pulse Rate 73 07/01/20 15:47 Respiratory Rate 17 07/01/20 15:47 Blood Pressure 147/65 07/01/20 15:47 Pulse Oximetry 92 07/01/20 15:47 MDM - SOB/Dyspnea Lab Data: Labs: Lab Results 07/01/20 07/01/20 07/01/20 Range/Units 11:10 11:10 11:20 WBC 4.9 (4.0-10.0) 10^3/ uL RBC 5.08 (4.1-5.3) 10^6/u L Hgb 14.0 (11.5-15.3) g/dL Hct 43.4 (37.0-47.0) % MCV 85.4 (81-99) fL MCH 27.6 L (28.0-34.0) pg MCHC 32.3 (30.0-36.0) g/dL RDW 13.4 (12.1-15.1) % Plt Count 224 (130-400) 10^3/c mm MPV 10.3 (7.4-10.4) fL Neut % (Auto) 72.5 % Lymph % (Auto) 12.3 % [place] % (Auto) 14.8 % Eos % (Auto) 0.0 % Baso % (Auto) 0.2 % Neut # (Auto) 3.58 (1.8-7.7) 10^3/u L Lymph # (Auto) 0.6 L (0.8-4.8) 10^3/u L [place] # (Auto) 0.7 (0.2-0.9) 10^3/u L Eos # (Auto) 0.0 (0.0-0.8) 10^3/u L Baso # (Auto) 0.0 (0.0-0.1) 10^3/u L Nucleated RBC % (a uto) 0 % Nucleated RBCs # 0.0 /100WBC Fibrinogen (174-498) mg/dL D-Dimer (0-0.59) ug/mIFE U Sodium (136-145) mmol/L Potassium (3.5-5.1) mmol/L Chloride (98-107) mmol/L Carbon Dioxide (22-29) mmol/L Anion Gap (5-19) BUN (8-23) mg/dL Creatinine (0.5-0.9) mg/dL GFR Calculation (90-130) mL/min Glucose (65-115) mg/dL Calculated Osmolal ity (285-295) mOsm/k g Lactate (0.5-2.2) mmol/L Calcium (8.5-10.5) mg/dL Total Bilirubin (0.15-1.2) mg/dL AST (0-32) U/L ALT (0-33) U/L Alkaline Phosphata se (35-105) IU/L Lactate Dehydrogen ase (135-214) U/L Troponin T Baselin e (0-10) ng/L Troponin T 120 Min [place] (0-10) ng/L Delta Troponin T (0-10) ABS# C-Reactive Protein (0.0-4.9) mg/L Total Protein (6.6-8.7) g/dL Albumin (3.5-5.2) g/dL Globulin (1.3-4.6) g/dL Lipase (13-60) U/L Influenza Type A A g Negative (Negative) Influenza Type B A g Negative (Negative) SARS-CoV-2 Ag (Rap id) Positive H (Negative) 07/01/20 07/01/20 07/01/20 Range/Units 11:20 11:20 11:20 WBC (4.0-10.0) 10^3/ uL RBC (4.1-5.3) 10^6/u L Hgb (11.5-15.3) g/dL Hct (37.0-47.0) % MCV (81-99) fL MCH (28.0-34.0) pg MCHC (30.0-36.0) g/dL RDW (12.1-15.1) % Plt Count (130-400) 10^3/c mm MPV (7.4-10.4) fL Neut % (Auto) % Lymph % (Auto) % [place] % (Auto) % Eos % (Auto) % Baso % (Auto) % Neut # (Auto) (1.8-7.7) 10^3/u L Lymph # (Auto) (0.8-4.8) 10^3/u L [place] # (Auto) (0.2-0.9) 10^3/u L Eos # (Auto) (0.0-0.8) 10^3/u L Baso # (Auto) (0.0-0.1) 10^3/u L Nucleated RBC % (a uto) % Nucleated RBCs # /100WBC Fibrinogen (174-498) mg/dL D-Dimer 0.39 (0-0.59) ug/mIFE U Sodium 133 L (136-145) mmol/L Potassium 3.0 L (3.5-5.1) mmol/L Chloride 98 (98-107) mmol/L Carbon Dioxide 22 (22-29) mmol/L Anion Gap 16.0 (5-19) BUN 8 (8-23) mg/dL Creatinine 0.7 (0.5-0.9) mg/dL GFR Calculation 83.5 L (90-130) mL/min Glucose 123 H (65-115) mg/dL Calculated Osmolal ity 276 L (285-295) mOsm/k g Lactate 1.2 (0.5-2.2) mmol/L Calcium 8.4 L (8.5-10.5) mg/dL Total Bilirubin 0.4 (0.15-1.2) mg/dL AST 17 (0-32) U/L ALT 21 (0-33) U/L Alkaline Phosphata se 77 (35-105) IU/L Lactate Dehydrogen ase (135-214) U/L Troponin T Baselin e (0-10) ng/L Troponin T 120 Min [place] (0-10) ng/L Delta Troponin T (0-10) ABS# C-Reactive Protein (0.0-4.9) mg/L Total Protein 6.8 (6.6-8.7) g/dL Albumin 4.0 (3.5-5.2) g/dL Globulin 2.8 (1.3-4.6) g/dL Lipase 33 (13-60) U/L Influenza Type A A g (Negative) Influenza Type B A g (Negative) SARS-CoV-2 Ag (Rap id) (Negative) 07/01/20 07/01/20 07/01/20 Range/Units 11:20 11:20 11:20 WBC (4.0-10.0) 10^3/ uL RBC (4.1-5.3) 10^6/u L Hgb (11.5-15.3) g/dL Hct (37.0-47.0) % MCV (81-99) fL MCH (28.0-34.0) pg MCHC (30.0-36.0) g/dL RDW (12.1-15.1) % Plt Count (130-400) 10^3/c mm MPV (7.4-10.4) fL Neut % (Auto) % Lymph % (Auto) % [place] % (Auto) % Eos % (Auto) % Baso % (Auto) % Neut # (Auto) (1.8-7.7) 10^3/u L Lymph # (Auto) (0.8-4.8) 10^3/u L [place] # (Auto) (0.2-0.9) 10^3/u L Eos # (Auto) (0.0-0.8) 10^3/u L Baso # (Auto) (0.0-0.1) 10^3/u L Nucleated RBC % (a uto) % Nucleated RBCs # /100WBC Fibrinogen 407 (174-498) mg/dL D-Dimer (0-0.59) ug/mIFE U Sodium (136-145) mmol/L Potassium (3.5-5.1) mmol/L Chloride (98-107) mmol/L Carbon Dioxide (22-29) mmol/L Anion Gap (5-19) BUN (8-23) mg/dL Creatinine (0.5-0.9) mg/dL GFR Calculation (90-130) mL/min Glucose (65-115) mg/dL Calculated Osmolal ity (285-295) mOsm/k g Lactate (0.5-2.2) mmol/L Calcium (8.5-10.5) mg/dL Total Bilirubin (0.15-1.2) mg/dL AST (0-32) U/L ALT (0-33) U/L Alkaline Phosphata se (35-105) IU/L Lactate Dehydrogen ase 201 (135-214) U/L Troponin T Baselin e 10 (0-10) ng/L Troponin T 120 Min [place] (0-10) ng/L Delta Troponin T (0-10) ABS# C-Reactive Protein 17.8 H (0.0-4.9) mg/L Total Protein (6.6-8.7) g/dL Albumin (3.5-5.2) g/dL Globulin (1.3-4.6) g/dL Lipase (13-60) U/L Influenza Type A A g (Negative) Influenza Type B A g (Negative) SARS-CoV-2 Ag (Rap id) (Negative) 07/01/20 Range/Units 14:00 WBC (4.0-10.0) 10^3/ uL RBC (4.1-5.3) 10^6/u L Hgb (11.5-15.3) g/dL Hct (37.0-47.0) % MCV (81-99) fL MCH (28.0-34.0) pg MCHC (30.0-36.0) g/dL RDW (12.1-15.1) % Plt Count (130-400) 10^3/c mm MPV (7.4-10.4) fL Neut % (Auto) % Lymph % (Auto) % [place] % (Auto) % Eos % (Auto) % Baso % (Auto) % Neut # (Auto) (1.8-7.7) 10^3/u L Lymph # (Auto) (0.8-4.8) 10^3/u L [place] # (Auto) (0.2-0.9) 10^3/u L Eos # (Auto) (0.0-0.8) 10^3/u L Baso # (Auto) (0.0-0.1) 10^3/u L Nucleated RBC % (a uto) % Nucleated RBCs # /100WBC Fibrinogen (174-498) mg/dL D-Dimer (0-0.59) ug/mIFE U Sodium (136-145) mmol/L Potassium (3.5-5.1) mmol/L Chloride (98-107) mmol/L Carbon Dioxide (22-29) mmol/L Anion Gap (5-19) BUN (8-23) mg/dL Creatinine (0.5-0.9) mg/dL GFR Calculation (90-130) mL/min Glucose (65-115) mg/dL Calculated Osmolal ity (285-295) mOsm/k g Lactate (0.5-2.2) mmol/L Calcium (8.5-10.5) mg/dL Total Bilirubin (0.15-1.2) mg/dL AST (0-32) U/L ALT (0-33) U/L Alkaline Phosphata se (35-105) IU/L Lactate Dehydrogen ase (135-214) U/L Troponin T Baselin e (0-10) ng/L Troponin T 120 Min [place] 10.26 H (0-10) ng/L Delta Troponin T 0.26 (0-10) ABS# C-Reactive Protein (0.0-4.9) mg/L Total Protein (6.6-8.7) g/dL Albumin (3.5-5.2) g/dL Globulin (1.3-4.6) g/dL Lipase (13-60) U/L Influenza Type A A g (Negative) Influenza Type B A g (Negative) SARS-CoV-2 Ag (Rap id) (Negative) Imaging Data^: CXR: Radiologist's impression: [address] [address] XRay Report Signed Patient: Tammy Brasher #: [id number] : 3Acct#:[id number] Age/Sex: 69 / FADM Date: 07/01/20 Loc: ERRoom/Bed: Attending Dr: Ordering Provider/Ordering MD: Christy Hanson Date of Service: 07/01/20 Procedure(s): XR chest 1V portable [id number] Accession Number(s): [id number] Report Number: [id number] PROCEDURE INFORMATION: Exam: XR Chest, 1 View Exam date and time: 07/01/2020 10:42 AM Age: 69 years old Clinical indication: Other: Covid symptoms; Prior surgery; Surgery type: Lumpectomy; Additional info: Syncope TECHNIQUE: Imaging protocol: XR of the chest Views: 1 view. COMPARISON: No relevant prior studies available. FINDINGS: Lungs: Unremarkable. No consolidation. Pleural space: Unremarkable. No pleural effusion. No pneumothorax. Heart/Mediastinum: Unremarkable. No cardiomegaly. Bones/joints: Unremarkable. XR/XR chest 1V portable [id number] IMPRESSION: No acute findings. Dictated By:Jag Hampton Signed By:Leighton Hampton Date/Time:07/01/20 1055 DD/ 1054 EKG Data^: EKG 1: EKG Interpretation Date: 07/01/20 EKG interpretation time: 10:46 Other EKG Comments: Sinus rhythm, borderline left axis deviation Discharge Plan Discharge Patient Disposition: Placed in Observation Admit Provider: Daniel Spence Clinical Impression: COVID-19, Acute hypokalemia Vomiting Qualifiers: Vomiting type: unspecified Vomiting Intractability: unspecified Nausea presence: unspecified Qualified Code(s): R11.10 - Vomiting, unspecified Diarrhea Qualifiers: Diarrhea type: unspecified type Qualified Code(s): R19.7 - Diarrhea, unspecified Condition: Stable Referrals: Kendra Dixon MD [Primary Care Provider] - Discharge Date/Time: 07/01/20 14:57 Coding Level of Care Code ED [employer] for [employer] Fwd Exam Comprehensive
--- NOTE | 2020-07-01 11:35 | ECG_ITS ---
[facility] Test Date: 2020-07-01 Pat Name: Tammy Brasher Department: Room: Gender: Female End User Support Specialist: : [id number] Requested By: Christy Gramajo Order Number: [id number] Nathalia MD: Katarzyna Mercado M.D. Measurements Intervals [place] Rate: 95 P: 4 ND: 164 QRS: -27 QRSD: 97 T: 29 QT: 342 QTc: 431 Interpretive Statements SINUS RHYTHM BORDERLINE LEFT AXIS DEVIATION [QRS AXIS < -20] INCOMPLETE RIGHT BUNDLE BRANCH BLOCK [90+ ms QRS DURATION, TERMINAL R IN V1/V2, 40+ ms S IN I/aVL/V4/V5/V6] Compared to ECG 06/25/2020 16:49:31 Incomplete right bundle-branch block now present Electronically Signed On 07-01-2020 21:40:20 CDT by Katarzyna Mercado M.D. [id number]
[2020-07-01 11:44] LABS: D Dimer 0.39 ug/mIFEU (0-0.59)
[2020-07-01 11:48] LABS: Lactate (Lactic Acid level) 1.2 mmol/L (0.5-2.2)
[2020-07-01] MEDS: famotidine 20 mg/2 mL INJ IVP (11:54)
[2020-07-01] MEDS: dexamethasone 10 mg/mL INJ IVP (11:54)
[2020-07-01 11:58] LABS: Alanine Aminotransferase 21 U/L (0-33); Alkaline Phosphatase 77 IU/L (35-105); Aspartate Amino Transferase 17 U/L (0-32); Blood Urea Nitrogen 8 mg/dL (8-23); Calcium 8.4 mg/dL (8.5-10.5); Carbon Dioxide 22 mmol/L (22-29); Chloride 98 mmol/L (98-107); Globulin 2.8 g/dL (1.3-4.6); Glomerular Filtration Rate 83.5 mL/min (90-130); Glucose 123 mg/dL (65-115); Lipase 33 U/L (13-60); Osmolality Calculated 276 mOsm/kg (285-295); Sodium 133 mmol/L (136-145); Total Bilirubin 0.4 mg/dL (0.15-1.2); Total Protein 6.8 g/dL (6.6-8.7)
[2020-07-01 12:08] LABS: Influenza A by IFA Negative (Negative); Influenza B by IFA Negative (Negative); SARS Covid-2 Antigen Positive (Negative)
[2020-07-01 12:17] LABS: Troponin(5th) Baseline 10 ng/L (0-10)
[2020-07-01 12:50] LABS: Fibrinogen 407 mg/dL (174-498)
[2020-07-01 12:56] LABS: C Reactive Protein 17.8 mg/L (0.0-4.9); Lactate Dehydrogenase 201 U/L (135-214)
[2020-07-01] MEDS: potassium chloride premix 100 ML 25 MEQ IV (14:01)
[2020-07-01 14:30] LABS: Troponin 5 2HR 10.26 ng/L (0-10); Troponin 5 2HR Delta 0.26 ABS# (0-10)
--- NOTE | 2020-07-01 16:02 | PM.HP ---
Providers/Chief Complaint Admitting Physician: Daniel Spence MD Primary Care Provider: Kendra Dixon MD Chief Complaint: All COVID symptoms except SOB History of Present Illness Tammy Brasher is a 69 year old female presents to emerge department with intractable nausea vomiting and diarrhea for the last 1 week. Approximate 10 days ago she started having some mild symptoms which gradually progressed. Patient her and grandchildren where tested positive for COVID-19. Patient denies any respiratory symptoms although rest of the family have more respiratory complaints. Patient denies shortness of breath or chest pain. Denies any melena or hematochezia. Reports that stool color is mostly yellowish and brownish with some mild odor. She tried taking her pancreatic enzymes with each meals but rarely could keep any meals down and usually would end up vomiting. Antiemetic given in emergency department help controlling patient's nausea. Reports drinking well water which was recently checked. Has history of chronic pancreatitis and reports that approximately 1 week ago she had episode of left upper quadrant pain which now much improved. Continues to have frequent episodes of fever and chills for the last 7 to 10 days. Patient has seizure disorder which started approximately 8 years ago and thought to be after small area of stroke on MRI. Patient reports that her medications now will titrated and she only gets preseizure episodes but never progresses on current regimen. Her last episode was approximately 2 months ago. She denies any previous history of diabetes or heart disease although medical records mention diabetes. Patient had left arthroscopic knee surgery approximately on April 13 and had perioperative antibiotics but otherwise denies recent antibiotic use. Denies any recent steroid or NSAID use except reports that she had intra-articular, left knee steroid injection several months ago. She reports significant family history of cancer. Mother had pancreatic cancer, father had esophageal cancer and brother had Hodgkin's lymphoma. Her recent EGD showed some lesion which patient is not sure what at the gastroesophageal junction. She thinks it could be an ulcer. Patient also was diagnosed with lupus erythematosus but she is not on any medications. Review of Systems Const: Reports: fever(s) and chills Eyes: Denies: change in vision ENMT: Denies: throat pain or change in hearing Card: Denies: chest pain, edema or lightheadedness Resp: Denies: dyspnea or productive cough GI: Reports: nausea, vomiting and diarrhea; Denies: abdominal pain, dysphagia, constipation, hematochezia or melena : Denies: difficulty voiding Musc: Denies: joint pain or joint swelling Skin/Breast: Denies: rash or erythema Neuro: Reports: headache(s) (Frontal with episodes of vomiting); Denies: weakness in extremities Psych: Denies: depression or suicidal ideation Endo: Denies: excessive sweating Samy/Lymph: Denies: easy bleeding or tender lymph nodes All/Imm: Denies: throat swelling Medications/Allergies Home Medications Medication Instructions Recorded Confirmed Last Taken Type fluticasone propionate 50 1 spray INTRANASAL .prn ml 10/18/19 06/05/20 Unknown History mcg/actuation nasal spray,suspension cane #1 each 04/03/20 06/05/20 Unknown Rx lacosamide 150 mg tablet 150 mg PO BID #60 tab 05/01/20 06/05/20 05/01/20 Rx Creon 1 cap PO DAILY 05/02/20 06/05/20 05/01/20 History oxycodone-acetaminophen [Percocet] 1 tab PO Q4H PRN #30 tab 05/02/20 06/05/20 Unknown Rx losartan 25 mg tablet See Rx Instructions .ROUTE 05/08/20 06/05/20 Unknown Rx .COMPLEX #180 tab oxybutynin chloride 5 mg tablet 5 mg PO BID #60 tab 05/08/20 06/05/20 Unknown Rx gabapentin 100 mg capsule 100 mg PO BID #60 cap 06/05/20 06/05/20 Unknown Rx metoprolol tartrate 25 mg tablet See Rx Instructions .ROUTE 06/06/20 Unknown Rx .COMPLEX #60 tab venlafaxine 75 mg capsule,extended 75 mg PO DAILY #90 cap 06/07/20 Unknown Rx release 24 hr trazodone 100 mg tablet 100 mg PO DAILY #30 tab 06/20/20 Unknown Rx pantoprazole 40 mg PO DAILY 28 Days #30 tab 06/25/20 Unknown Rx Allergies Allergy/AdvReac Type Severity Reaction Status Date / Time hydrocodone AdvReac ADR-Itching Verified 06/05/20 13:55 PFSH Acute PFSH: Medical History (Updated 07/01/20 @ 16:33 by Daniel Spence MD) Diabetes FH: total abdominal hysterectomy and bilateral salpingo-oophorectomy H/O chronic pancreatitis Nocturnal and diurnal enuresis Polyuria Seizure disorder Urgency incontinence Vaginal voiding Surgical History (Updated 07/01/20 @ 16:20 by Daniel Spence MD) H/O arthroscopic knee surgery H/O breast biopsy H/O cataract extraction H/O shoulder surgery S/P inguinal hernia repair Family History Mother , at age 72 Hypertension Cancer Pancreatic Family/Other Diabetes Stroke Father , at age 90 Cancer Esophageal Brother Cancer Hodgkin's lymphoma Social History Smoking and tobacco status: former smoker Quit status (tobacco): has quit using tobacco Year quit tobacco: 1989 Alcohol intake: never Marital status: Current occupational status: retired History of recent travel: No Vitals/I&O/Wt Last Vital Signs Temp 100.5 F H 07/01/20 15:47 Pulse 73 07/01/20 15:47 Resp 17 07/01/20 15:47 BP 147/65 07/01/20 15:47 Pulse Ox 92 07/01/20 15:47 07/01/20 07/01/20 07/01/20 06:59 14:59 22:59 Intake Total 500 / 500 Balance 500 / 500 Weight last 48 hrs Weight 102.512 kg Physical Exam Const: COMMON NORMALS: no acute distress, patient oriented x3 and alert HENMT: COMMON NORMALS: normocephalic and atraumatic HEAD & SCALP: normocephalic and atraumatic Eye: COMMON NORMALS: EOMs intact bilaterally, conjunctivae normal and no scleral icterus CONJUNCTIVA: Yes conjunctivae normal Neck/C-Spine: COMMON NORMALS: no lymphadenopathy and no meningeal signs Lymph: LYMPHATIC: no lymphadenopathy noted Chest: COMMONS NORMALS: normal palpation of entire chest wall Resp: COMMON NORMALS: No use of accessory muscles and clear to auscultation bilaterally AUSCULTATION: clear to auscultation bilaterally Cardio: COMMON NORMALS: regular rate, regular rhythm and No murmurs present (Cardio) RATE: regular rate RHYTHM: regular rhythm OTHER: No lower extremity edema GI: COMMON NORMALS: Soft to palpation PALPATION: Yes Soft to palpation RECTAL EXAM: deferred OTHER: Slightly tender at epigastric area. : COMMON NORMALS: Yes no CVA tenderness BLADDER/KIDNEY EXAM: Yes no CVA tenderness Back/Pelvis: COMMON NORMALS: no CVA tenderness and thoracic and lumbar spine normal to inspection Extremity: COMMON NORMALS: normal to inspection and capillary refill normal Neuro: COMMON NORMALS: patient oriented x3 and no focal motor deficits SENSORIUM/ORIENTATION: Yes alert MENINGEAL SIGNS: Yes no meningeal signs Psych: COMMON NORMALS: mental status grossly normal, Normal thought process present and cooperative THOUGHT PROCESS: Normal thought process present Skin: COMMON NORMALS: no rashes or lesions noted GENERAL SKIN EXAM: no rashes or lesions noted Data : 07/01/20 11:20 07/01/20 11:20 A&P Assessment and plan (1) Intractable nausea and vomiting: Status: Acute (2) Diarrhea: Status: Acute Qualifiers: Diarrhea type: unspecified type Qualified Code(s): R19.7 - Diarrhea, unspecified (3) Acute hypokalemia: Status: Acute (4) Dehydration with hyponatremia: Status: Acute (5) COVID-19: Status: Acute (6) Seizure disorder: Status: Acute (7) H/O chronic pancreatitis: With pancreatic insufficiency, on enzyme replacement. Status: Acute (8) Hyperglycemia: Status: Acute Additional A&P Information PLAN: Continue with IV fluids and monitor urinary output. Replete potassium and check magnesium level. Check stool for C. difficile and enteric pathogens. Check UA to rule out UTI. Continue with antiemetics and start patient on Protonix for GI protection. Check lacosamide level. Seizure precautions. Check hemoglobin A1c in a.m. As patient has mild hyperglycemia and history indicates diabetes although patient denies. Physical therapy. Restart home medications including Creon. Start patient on clear liquid diet and advance as tolerated. Attestations Medical Necessity Statement*: Patient with intractable nausea vomiting and diarrhea requires observation for monitoring and treatment. I expect patient will require less than two midnights. Time Spent in Patient Care: Greater than 35 minutes Coding Level of Care Code Acute [employer] for [facility] Diagnoses Intractable nausea and vomiting R11.2 Diarrhea R19.7 Diarrhea type: unspecified type Acute hypokalemia E87.6 Dehydration with hyponatremia E86.0; E87.1 COVID-19 U07.1 Seizure disorder G40.909 H/O chronic pancreatitis Z87.19 Hyperglycemia R73.9
[2020-07-01] MEDS: lactated ringers 1,000 ML 150 ML IV (17:44)
[2020-07-01] MEDS: potassium chloride ER 10 mEq Tablet 40 MEQ PO (17:45)
[2020-07-01] MEDS: metoprolol tartrate 25 mg Tablet PO (17:45)
[2020-07-01] MEDS: gabapentin 100 mg Capsule PO (17:45)
[2020-07-01] MEDS: pantoprazole 40 mg SDV IVP (17:46)
[2020-07-01] MEDS: lacosamide 50 mg Tablet 150 MG PO (17:46)
[2020-07-01 19:59] LABS: Troponin 5 6HR 9.83 ng/L (0-10)
[2020-07-01 20:02] LABS: Troponin 5 6HR Delta -0.17 ng/L (0-12)
[2020-07-02] VITALS (10 sets, daily range): BP systolic 110–154; BP diastolic 66–88; PULSE 58–82; RESP 16–19; TEMP 36.6–38.4; O2SAT 93–98
[2020-07-02 07:02] LABS: Basophils % 0.2 %; Hematocrit 43.5 % (37.0-47.0); Hemoglobin 14.2 g/dL (11.5-15.3); Lymphocytes # 1.3 10^3/uL (0.8-4.8); Mean Corpuscular HGB Conc 32.6 g/dL (30.0-36.0); Mean Corpuscular Volume 85.8 fL (81-99); Mean Platelet Volume 10.4 fL (7.4-10.4); Monocytes # 0.7 10^3/uL (0.2-0.9); Monocytes % 9.1 %; Neutrophils # 6.07 10^3/uL (1.8-7.7); Neutrophils % 74.5 %; Nucleated Red Blood Cells % 0 %; Platelet Count 240 10^3/cmm (130-400); Red Blood Count 5.07 10^6/uL (4.1-5.3); Red Cell Distribution Width 13.7 % (12.1-15.1); White Blood Count 8.2 10^3/uL (4.0-10.0)
[2020-07-02 07:27] LABS: Alanine Aminotransferase 17 U/L (0-33); Alkaline Phosphatase 76 IU/L (35-105); Anion Gap 14.5 (5-19); Aspartate Amino Transferase 17 U/L (0-32); Blood Urea Nitrogen 7 mg/dL (8-23); Calcium 8.7 mg/dL (8.5-10.5); Carbon Dioxide 24 mmol/L (22-29); Chloride 106 mmol/L (98-107); Globulin 2.7 g/dL (1.3-4.6); Glomerular Filtration Rate 99.7 mL/min (90-130); Glucose 103 mg/dL (65-115); Magnesium 2.1 mg/dL (1.7-2.3); Osmolality Calculated 290 mOsm/kg (285-295); Potassium 3.5 mmol/L (3.5-5.1); Sodium 141 mmol/L (136-145); Total Bilirubin 0.3 mg/dL (0.15-1.2); Total Protein 6.7 g/dL (6.6-8.7)
[2020-07-02 07:30] LABS: Estmated Average Glucose 114; Hemoglobin A1C 5.6 % (4.0-6.0)
[2020-07-02] MEDS: gabapentin 100 mg Capsule PO (08:10)
[2020-07-02] MEDS: losartan 50 mg Tablet PO (08:10)
[2020-07-02] MEDS: acetaminophen 325 mg Tablet 650 MG PO ×2 (08:10→15:10)
[2020-07-02] MEDS: metoprolol tartrate 25 mg Tablet PO ×2 (08:10→17:08)
[2020-07-02] MEDS: venlafaxine ER (24HR) 75 mg Capsule PO (08:10)
[2020-07-02] MEDS: pantoprazole DR 40 mg Tablet PO (08:10)
[2020-07-02 09:22] LABS: Bilirubin Urine Neg (Negative); Blood Urine 2+ (Negative); Glucose Urine UA Norm (Normal); Ketones Urine Negative (Negative); Leukocyte Esterase Urine Negative (Negative); Nitrate Urine Negative (Negative); Protein Urine Neg (Negative); Specific Gravity, Urine 1.015 (1.005-1.030); Urine Appearance Clear (CLEAR); Urine Color Yellow (Yellow); Urobilinogen Urine Norm (Negative)
[2020-07-02 09:23] LABS: Add Urine Culture? No; Bacteria Urine 1+ /hpf; Mucus Urine TRACE /hpf; RBC Urine 0-4 /hpf (0-2)
[2020-07-02] MEDS: lacosamide 50 mg Tablet 150 MG PO ×2 (09:54→17:08)
[2020-07-02] MEDS: venlafaxine ER (24HR) 150 mg Capsule PO (09:54)
--- NOTE | 2020-07-02 11:24 | PM.PN ---
Subjective Subjective: Interval history: Patient reports feeling slightly better but continues to have febrile episodes and chills. She continues to have diarrhea but reports that her nausea resolved and she wants to eat something more solid this morning. She denies shortness of breath or chest pain. She saturating 94% this morning on room air. She has some nasal congestion and dry cough but has no difficulty breathing. Vitals/I&O/Wt Last Vital Signs Temp 101.1 F H 07/02/20 08:00 Pulse 66 07/02/20 09:54 Resp 18 07/02/20 08:00 BP 139/79 07/02/20 08:10 Pulse Ox 94 07/02/20 09:54 07/01/20 07/02/20 07/02/20 22:59 06:59 14:59 Output Total 300 / 300 Balance -300 / -300 Weight last 48 hrs Weight 102.512 kg Physical Exam Const: COMMON NORMALS: no acute distress and patient oriented x3 Resp: COMMON NORMALS: normal respiratory effort and clear to auscultation bilaterally AUSCULTATION: clear to auscultation bilaterally Cardio: COMMON NORMALS: regular rate, regular rhythm and S2 normal heart sound present RATE: regular rate RHYTHM: regular rhythm HEART SOUNDS: S2 normal heart sound present OTHER: No lower extremity edema GI: COMMON NORMALS: Normal to inspection, nondistended, normoactive bowel sounds present, Soft to palpation and non-tender PALPATION: Yes Soft to palpation Neuro: COMMON NORMALS: patient oriented x3 and no focal motor deficits Data : 07/02/20 06:45 07/02/20 06:45 Micro: Microbiology 07/01/20 16:56 C.difficile Toxin B Gene (PCR) - Final Stool A&P Assessment and plan (1) Intractable nausea and vomiting: Improved. Status: Acute (2) Diarrhea: C. difficile test is negative. Status: Acute Qualifiers: Diarrhea type: unspecified type Qualified Code(s): R19.7 - Diarrhea, unspecified (3) Acute hypokalemia: Status: Acute (4) Dehydration with hyponatremia: Status: Acute (5) COVID-19: Status: Acute (6) Seizure disorder: Status: Acute (7) H/O chronic pancreatitis: With pancreatic insufficiency, on enzyme replacement. Status: Acute (8) Hyperglycemia: Status: Acute Additional A&P Information PLAN: We will continue close monitoring and treatment. Discontinue IV fluids as patient's oral intake is improving. Obtain blood cultures. Hold off on antibiotics as patient appears to have acute viral syndrome secondary to Covid. Lovenox for DVT prophylaxis. Attestations Medical Necessity Statement*: Patient with significant diarrhea and fever requires close inpatient monitoring and treatment. Will change admission status to inpatient as patient stay will cross 2 midnights. Coding Level of Care Code Acute Director Epidemiology for [facility] Fwd Diagnoses Intractable nausea and vomiting R11.2 Diarrhea R19.7 Diarrhea type: unspecified type Acute hypokalemia E87.6 Dehydration with hyponatremia E86.0; E87.1 COVID-19 U07.1 Seizure disorder G40.909 H/O chronic pancreatitis Z87.19 Hyperglycemia R73.9
[2020-07-02] MEDS: enoxaparin 40 mg/0.4 mL Syringe SUBCUT (11:40)
[2020-07-02] MEDS: oxybutynin 5 mg Tablet PO (17:08)
[2020-07-02] MEDS: oxyCODONE-APAP 5-325 mg Tablet 1 TAB PO (17:09)
--- NOTE | 2020-07-02 18:47 | PC.NURSE ---
SHIFT SUMMARY PATIENT HAS BEEN ON ROOM AIR ALL DAY. NO VOMITING. NAUSEA ON AND OFF BUT TOLERATING DIET WELL. NO FURTHER DIARRHEA EPISODES. PATIENT CONTINUES TO RUN A FEVER ON AND OFF. PATIENT STATES SHE FEELS BETTER BUT IS STILL WEAK. PATIENT CURRENTLY RESTING IN BED.
[2020-07-02 20:22] LABS: Coronavirus Lab Test PTC Positive
[2020-07-02] MEDS: trazodone 100 mg Tablet PO (22:06)
[2020-07-02] MEDS: ondansetron 2 mg/ML SDV 2 mL 4 MG IVP (22:26)
[2020-07-03] VITALS (8 sets, daily range): BP systolic 127–159; BP diastolic 65–81; PULSE 65–81; RESP 18–20; TEMP 37.1–38.7; O2SAT 87–97
[2020-07-03] MEDS: acetaminophen 325 mg Tablet 650 MG PO ×2 (01:55→08:51)
[2020-07-03 05:42] LABS: Basophils % 0.2 %; Hematocrit 41.6 % (37.0-47.0); Hemoglobin 13.5 g/dL (11.5-15.3); Lymphocytes # 0.8 10^3/uL (0.8-4.8); Mean Corpuscular HGB Conc 32.5 g/dL (30.0-36.0); Mean Corpuscular Hemoglobin 27.6 pg (28.0-34.0); Mean Corpuscular Volume 85.1 fL (81-99); Mean Platelet Volume 10.6 fL (7.4-10.4); Monocytes # 0.5 10^3/uL (0.2-0.9); Monocytes % 8.3 %; Neutrophils # 4.48 10^3/uL (1.8-7.7); Neutrophils % 77.3 %; Nucleated Red Blood Cells % 0 %; Platelet Count 234 10^3/cmm (130-400); Red Blood Count 4.89 10^6/uL (4.1-5.3); Red Cell Distribution Width 13.5 % (12.1-15.1); White Blood Count 5.8 10^3/uL (4.0-10.0)
[2020-07-03 06:07] LABS: Alanine Aminotransferase 16 U/L (0-33); Albumin Level 3.7 g/dL (3.5-5.2); Alkaline Phosphatase 70 IU/L (35-105); Anion Gap 13.5 (5-19); Aspartate Amino Transferase 21 U/L (0-32); Blood Urea Nitrogen 6 mg/dL (8-23); Calcium 8.6 mg/dL (8.5-10.5); Carbon Dioxide 26 mmol/L (22-29); Chloride 102 mmol/L (98-107); Globulin 2.6 g/dL (1.3-4.6); Glomerular Filtration Rate 83.5 mL/min (90-130); Glucose 101 mg/dL (65-115); Osmolality Calculated 284 mOsm/kg (285-295); Potassium 3.5 mmol/L (3.5-5.1); Sodium 138 mmol/L (136-145); Total Bilirubin 0.3 mg/dL (0.15-1.2); Total Protein 6.3 g/dL (6.6-8.7)
[2020-07-03] MEDS: lacosamide 50 mg Tablet 150 MG PO ×2 (08:51→17:25)
[2020-07-03] MEDS: losartan 50 mg Tablet PO (08:51)
[2020-07-03] MEDS: pantoprazole DR 40 mg Tablet PO (08:51)
[2020-07-03] MEDS: venlafaxine ER (24HR) 75 mg Capsule 225 MG PO (08:51)
[2020-07-03] MEDS: metoprolol tartrate 25 mg Tablet PO ×2 (08:51→17:26)
[2020-07-03] MEDS: oxybutynin 5 mg Tablet PO ×2 (08:51→17:26)
--- NOTE | 2020-07-03 09:50 | PM.PN ---
Subjective Subjective: Interval history: Patient is not doing well this morning. Continues to have febrile episodes. Continues to have chills. Reports that her diarrhea completely resolved and she denies being nauseous. She saturating 96% on room air but noted that last night her oxygen saturation would drop to 87% on room air. Vitals/I&O/Wt Last Vital Signs Temp 101.7 F H 07/03/20 08:00 Pulse 77 07/03/20 08:22 Resp 18 07/03/20 08:00 BP 146/65 07/03/20 08:51 Pulse Ox 96 07/03/20 08:22 07/02/20 07/03/20 07/03/20 22:59 06:59 14:59 Intake Total 120 / 120 Output Total 500 / 1100 Balance -500 / -1100 120 / 120 Physical Exam Const: COMMON NORMALS: no acute distress and patient oriented x3 Resp: COMMON NORMALS: normal respiratory effort and clear to auscultation bilaterally AUSCULTATION: clear to auscultation bilaterally Cardio: COMMON NORMALS: regular rate, regular rhythm and S2 normal heart sound present RATE: regular rate RHYTHM: regular rhythm HEART SOUNDS: S2 normal heart sound present OTHER: No lower extremity edema GI: COMMON NORMALS: Normal to inspection, nondistended, normoactive bowel sounds present, Soft to palpation and non-tender PALPATION: Yes Soft to palpation Neuro: COMMON NORMALS: patient oriented x3 and no focal motor deficits Data : 07/03/20 05:10 07/03/20 05:10 Micro: Microbiology 07/02/20 13:11 Blood Culture - Preliminary Blood SPECIMEN COLLECTED 07/02/20 13:15 Blood Culture - Preliminary Blood SPECIMEN COLLECTED A&P Assessment and plan (1) Intractable nausea and vomiting: Improved. Status: Acute (2) Diarrhea: C. difficile test is negative. Resolved. Status: Acute Qualifiers: Diarrhea type: unspecified type Qualified Code(s): R19.7 - Diarrhea, unspecified (3) Acute hypokalemia: Status: Acute (4) Dehydration with hyponatremia: Status: Acute (5) COVID-19: Status: Acute (6) Seizure disorder: Status: Acute (7) H/O chronic pancreatitis: With pancreatic insufficiency, on enzyme replacement. Status: Acute (8) Hyperglycemia: Status: Acute Additional A&P Information PLAN: Since patient continues to have fever and had episode of oxygen desaturation I will start patient on remdesivir and dexamethasone. No antibiotic at this point. Continue Protonix for GI protection. If not improving consider CT imaging. Attestations Medical Necessity Statement*: Patient Covid positive with significant fever and episode of hypoxia requires close inpatient monitoring, treatment and evaluation. Coding Level of Care Code Acute Advertising Account Manager for g Fwd Diagnoses Intractable nausea and vomiting R11.2 Diarrhea R19.7 Diarrhea type: unspecified type Acute hypokalemia E87.6 Dehydration with hyponatremia E86.0; E87.1 COVID-19 U07.1 Seizure disorder G40.909 H/O chronic pancreatitis Z87.19 Hyperglycemia R73.9
[2020-07-03] MEDS: dexamethasone 4 mg/mL INJ 6 MG IVP (10:30)
[2020-07-03] MEDS: enoxaparin 40 mg/0.4 mL Syringe SUBCUT (12:27)
--- NOTE | 2020-07-03 18:27 | PC.NURSE ---
SHIFT SUMMARY PATIENT HAS RESTED A LOT TODAY. PATIENT ONLY RAN A FEVER ONCE TODAY AROUND 0800. AMBULATING BACK AND FORTH TO THE BATHROOM. PATIENT HAVING MOMENTS OF URINARY INCONTINENCE, BUT PATIENT STATES THIS IS NORMAL. STARTED ON REMDESIVIR AND DEXAMETHASONE TODAY. BETTER APPETITE THIS AFTERNOON THAN THIS MORNING. NO COMPLAINTS AT THIS TIME.
[2020-07-03] MEDS: trazodone 100 mg Tablet PO (21:35)
[2020-07-04] VITALS (8 sets, daily range): BP systolic 122–140; BP diastolic 67–80; PULSE 55–74; RESP 14–18; TEMP 37.2–37.6; O2SAT 92–96
[2020-07-04] MEDS: oxyCODONE-APAP 5-325 mg Tablet 1 TAB PO (05:47)
[2020-07-04 05:55] LABS: Basophils % 0.3 %; Hematocrit 38.1 % (37.0-47.0); Hemoglobin 12.6 g/dL (11.5-15.3); Lymphocytes # 0.8 10^3/uL (0.8-4.8); Lymphocytes % 21.5 %; Mean Corpuscular HGB Conc 33.1 g/dL (30.0-36.0); Mean Corpuscular Hemoglobin 27.9 pg (28.0-34.0); Mean Corpuscular Volume 84.5 fL (81-99); Mean Platelet Volume 10.4 fL (7.4-10.4); Monocytes # 0.6 10^3/uL (0.2-0.9); Monocytes % 15.6 %; Neutrophils # 2.44 10^3/uL (1.8-7.7); Neutrophils % 62.3 %; Nucleated Red Blood Cells % 0 %; Platelet Count 230 10^3/cmm (130-400); Red Blood Count 4.51 10^6/uL (4.1-5.3); Red Cell Distribution Width 13.3 % (12.1-15.1); White Blood Count 3.9 10^3/uL (4.0-10.0)
[2020-07-04 06:25] LABS: Alanine Aminotransferase 14 U/L (0-33); Albumin Level 3.3 g/dL (3.5-5.2); Alkaline Phosphatase 60 IU/L (35-105); Anion Gap 12.9 (5-19); Aspartate Amino Transferase 18 U/L (0-32); Blood Urea Nitrogen 5 mg/dL (8-23); Calcium 8.4 mg/dL (8.5-10.5); Carbon Dioxide 26 mmol/L (22-29); Chloride 101 mmol/L (98-107); Globulin 2.7 g/dL (1.3-4.6); Glomerular Filtration Rate 99.7 mL/min (90-130); Glucose 91 mg/dL (65-115); Osmolality Calculated 281 mOsm/kg (285-295); Sodium 137 mmol/L (136-145); Total Bilirubin 0.2 mg/dL (0.15-1.2)
[2020-07-04 06:32] LABS: Potassium 2.9 mmol/L (3.5-5.1)
--- NOTE | 2020-07-04 09:36 | PM.PN ---
Subjective Subjective: Interval history: Patient reports feeling slightly better. She has no diarrhea and denies shortness of breath or chest pain. Appears her high episodes of fever gradually resolving. She continues to have poor appetite and oral intake. Vitals/I&O/Wt Last Vital Signs Temp 99.6 F 07/04/20 08:00 Pulse 65 07/04/20 08:00 Resp 18 07/04/20 08:00 BP 140/68 07/04/20 08:00 Pulse Ox 92 07/04/20 08:00 07/03/20 07/04/20 07/04/20 22:59 06:59 14:59 Intake Total 360 / 680 120 / 120 Balance 360 / 680 120 / 120 Physical Exam Const: COMMON NORMALS: no acute distress and patient oriented x3 Resp: COMMON NORMALS: normal respiratory effort OTHER: Very minimal left basilar Rales. Cardio: COMMON NORMALS: regular rate, regular rhythm and S2 normal heart sound present RATE: regular rate RHYTHM: regular rhythm HEART SOUNDS: S2 normal heart sound present OTHER: No lower extremity edema GI: COMMON NORMALS: Normal to inspection, nondistended, normoactive bowel sounds present, Soft to palpation and non-tender PALPATION: Yes Soft to palpation Neuro: COMMON NORMALS: patient oriented x3 and no focal motor deficits Data : 07/04/20 05:00 07/04/20 05:00 Micro: Microbiology 07/02/20 13:11 Blood Culture - Preliminary Blood NEGATIVE TO DATE 07/02/20 13:15 Blood Culture - Preliminary Blood NEGATIVE TO DATE A&P Assessment and plan (1) Intractable nausea and vomiting: Improved. Status: Acute (2) Diarrhea: C. difficile test is negative. Resolved. Status: Acute Qualifiers: Diarrhea type: unspecified type Qualified Code(s): R19.7 - Diarrhea, unspecified (3) Acute hypokalemia: Status: Acute (4) Dehydration with hyponatremia: Status: Acute (5) COVID-19: Status: Acute (6) Seizure disorder: Status: Acute (7) H/O chronic pancreatitis: With pancreatic insufficiency, on enzyme replacement. Status: Acute (8) Hyperglycemia: Status: Acute Additional A&P Information PLAN: Continue current monitoring and treatment. Replete potassium. Monitor CBC. Patient's leukocytosis likely due to acute viral syndrome. Encouraged oral intake. Attestations Medical Necessity Statement*: Patient's with fever and generalized weakness due to COVID-19 requires close inpatient monitoring and treatment. Coding Level of Care Code Acute Insurance Account Specialist for g Fwd Diagnoses Intractable nausea and vomiting R11.2 Diarrhea R19.7 Diarrhea type: unspecified type Acute hypokalemia E87.6 Dehydration with hyponatremia E86.0; E87.1 COVID-19 U07.1 Seizure disorder G40.909 H/O chronic pancreatitis Z87.19 Hyperglycemia R73.9
[2020-07-04] MEDS: venlafaxine ER (24HR) 75 mg Capsule 225 MG PO (10:01)
[2020-07-04] MEDS: lacosamide 50 mg Tablet 150 MG PO ×2 (10:02→17:56)
[2020-07-04] MEDS: potassium chloride ER 10 mEq Tablet 40 MEQ PO (10:02)
[2020-07-04] MEDS: losartan 50 mg Tablet PO (10:03)
[2020-07-04] MEDS: metoprolol tartrate 25 mg Tablet PO ×2 (10:03→17:56)
[2020-07-04] MEDS: gabapentin 100 mg Capsule PO (10:03)
[2020-07-04] MEDS: oxybutynin 5 mg Tablet PO ×2 (10:03→17:56)
[2020-07-04] MEDS: pantoprazole DR 40 mg Tablet PO (10:03)
[2020-07-04] MEDS: dexamethasone 4 mg/mL INJ 6 MG IVP (11:25)
[2020-07-04] MEDS: enoxaparin 40 mg/0.4 mL Syringe SUBCUT (11:26)
[2020-07-04] MEDS: trazodone 100 mg Tablet PO (22:28)
[2020-07-05] VITALS (7 sets, daily range): BP systolic 106–140; BP diastolic 66–83; PULSE 51–73; RESP 14–18; TEMP 36.4–37.1; O2SAT 92–95
[2020-07-05] MEDS: venlafaxine ER (24HR) 75 mg Capsule 225 MG PO (08:28)
[2020-07-05] MEDS: metoprolol tartrate 25 mg Tablet PO ×2 (08:29→17:39)
[2020-07-05] MEDS: pantoprazole DR 40 mg Tablet PO (08:29)
[2020-07-05] MEDS: losartan 50 mg Tablet PO (08:30)
[2020-07-05] MEDS: oxybutynin 5 mg Tablet PO ×2 (08:30→17:39)
[2020-07-05] MEDS: lacosamide 50 mg Tablet 150 MG PO ×2 (08:31→19:07)
--- NOTE | 2020-07-05 09:12 | P.PN_ITS ---
Subjective Subjective: Interval history: Patient reports further improvement. Had no more diarrhea. Denies shortness of breath or chest pain. Continues to be generally weak but reports that she was able to walk in her room yesterday. Reports that her oral intake appears to be improving as well but she still does not eat much. Vitals/I&O/Wt Last Vital Signs Temp 97.7 F 07/05/20 08:00 Pulse 61 07/05/20 08:00 Resp 18 07/05/20 08:00 BP 115/68 07/05/20 08:30 Pulse Ox 92 07/05/20 08:00 07/04/20 07/05/20 07/05/20 22:59 06:59 14:59 Intake Total 240 / 360 Output Total 425 / 425 250 / 675 Balance -185 / -65 -250 / -315 Physical Exam Const: COMMON NORMALS: no acute distress and patient oriented x3 Resp: COMMON NORMALS: normal respiratory effort OTHER: Very minimal bibasilar Rales which appears to be improving with deep inspiration. Cardio: COMMON NORMALS: regular rate, regular rhythm and S2 normal heart sound present RATE: regular rate RHYTHM: regular rhythm HEART SOUNDS: S2 normal heart sound present OTHER: No lower extremity edema GI: COMMON NORMALS: Normal to inspection, nondistended, normoactive bowel sounds present, Soft to palpation and non-tender PALPATION: Yes Soft to palpation Neuro: COMMON NORMALS: patient oriented x3 and no focal motor deficits Data : 07/04/20 05:00 07/04/20 05:00 A&P Assessment and plan (1) Intractable nausea and vomiting: Improved. Status: Acute (2) Diarrhea: C. difficile test is negative. Resolved. Status: Acute Qualifiers: Diarrhea type: unspecified type Qualified Code(s): R19.7 - Diarrhea, unspecified (3) Acute hypokalemia: Status: Acute (4) Dehydration with hyponatremia: Status: Acute (5) COVID-19: Status: Acute (6) Seizure disorder: Status: Acute (7) H/O chronic pancreatitis: With pancreatic insufficiency, on enzyme replacement. Status: Acute (8) Hyperglycemia: Status: Acute Additional A&P Information PLAN: Continue current monitoring and treatment including antiviral and steroids. Repeat labs in the morning. Encouraged oral intake and ambulation. Attestations Medical Necessity Statement*: Patient with symptomatic Covid infection requires close inpatient monitoring and treatment until antiviral medication is completed. Coding Level of Care Code Acute Operating Room Surgical Technician for [facility] Fwd Diagnoses Intractable nausea and vomiting R11.2 Diarrhea R19.7 Diarrhea type: unspecified type Acute hypokalemia E87.6 Dehydration with hyponatremia E86.0; E87.1 COVID-19 U07.1 Seizure disorder G40.909 H/O chronic pancreatitis Z87.19 Hyperglycemia R73.9
[2020-07-05] MEDS: dexamethasone 4 mg/mL INJ 6 MG IVP (12:02)
[2020-07-05] MEDS: enoxaparin 40 mg/0.4 mL Syringe SUBCUT (12:05)
--- NOTE | 2020-07-05 12:37 | DCPLANNER ---
Phoned the Pt's room and explained the IM to her. No questions, this is new to her. Copy placed in the chart.
[2020-07-05 14:32] LABS: Lacosamie (Vimpat) 4.7 mcg/mL
[2020-07-05] MEDS: trazodone 100 mg Tablet PO (21:55)
[2020-07-06] VITALS: BP 137/81; PULSE 66; RESP 14; TEMP 36.9; O2SAT 94
[2020-07-06 04:00] VITALS: BP 148/83; PULSE 55; RESP 14; TEMP 36.7; O2SAT 96
[2020-07-06 05:38] LABS: Basophils % 0.3 %; Hemoglobin 12.6 g/dL (11.5-15.3); Lymphocytes # 1.4 10^3/uL (0.8-4.8); Mean Corpuscular HGB Conc 32.3 g/dL (30.0-36.0); Mean Corpuscular Hemoglobin 27.6 pg (28.0-34.0); Mean Corpuscular Volume 85.5 fL (81-99); Mean Platelet Volume 10.5 fL (7.4-10.4); Monocytes # 0.5 10^3/uL (0.2-0.9); Monocytes % 13.4 %; Neutrophils # 2.03 10^3/uL (1.8-7.7); Nucleated Red Blood Cells % 0 %; Platelet Count 298 10^3/cmm (130-400); Red Blood Count 4.56 10^6/uL (4.1-5.3); Red Cell Distribution Width 13.4 % (12.1-15.1)
[2020-07-06 06:01] LABS: Alanine Aminotransferase 14 U/L (0-33); Albumin Level 3.3 g/dL (3.5-5.2); Alkaline Phosphatase 60 IU/L (35-105); Anion Gap 12.4 (5-19); Aspartate Amino Transferase 15 U/L (0-32); Blood Urea Nitrogen 8 mg/dL (8-23); Calcium 8.5 mg/dL (8.5-10.5); Carbon Dioxide 27 mmol/L (22-29); Chloride 105 mmol/L (98-107); Globulin 2.8 g/dL (1.3-4.6); Glomerular Filtration Rate 99.7 mL/min (90-130); Glucose 95 mg/dL (65-115); Magnesium 2.2 mg/dL (1.7-2.3); Osmolality Calculated 290 mOsm/kg (285-295); Potassium 3.4 mmol/L (3.5-5.1); Sodium 141 mmol/L (136-145); Total Bilirubin 0.3 mg/dL (0.15-1.2); Total Protein 6.1 g/dL (6.6-8.7)
[2020-07-06 08:16] LABS: Slide Review Slide Review Perform
[2020-07-06] MEDS: potassium chloride ER 10 mEq Tablet 40 MEQ PO (11:07)
[2020-07-06] MEDS: lacosamide 50 mg Tablet 150 MG PO ×2 (11:07→17:58)
[2020-07-06 11:08] VITALS: BP 132/84
[2020-07-06] MEDS: losartan 50 mg Tablet PO (11:08)
[2020-07-06] MEDS: metoprolol tartrate 25 mg Tablet PO ×2 (11:08→17:58)
[2020-07-06] MEDS: oxybutynin 5 mg Tablet PO ×2 (11:08→17:58)
[2020-07-06] MEDS: pantoprazole DR 40 mg Tablet PO (11:08)
[2020-07-06] MEDS: venlafaxine ER (24HR) 75 mg Capsule 225 MG PO (11:08)
--- NOTE | 2020-07-06 11:08 | P.PN_ITS ---
Subjective Subjective: Interval history: Patient reports further improvement. Had no more diarrhea. Denies shortness of breath or chest pain. Reports that her oral intake and strength are gradually improving. Vitals/I&O/Wt Last Vital Signs Temp 98.1 F 07/06/20 04:00 Pulse 55 L 07/06/20 04:00 Resp 14 07/06/20 04:00 BP 148/83 07/06/20 04:00 Pulse Ox 96 07/06/20 04:00 07/05/20 07/06/20 07/06/20 22:59 06:59 14:59 Intake Total 480 / 920 240 / 1160 Output Total 300 / 300 375 / 675 Balance 180 / 620 -135 / 485 Physical Exam Const: COMMON NORMALS: no acute distress and patient oriented x3 Resp: COMMON NORMALS: normal respiratory effort OTHER: Very minimal bibasilar Rales. Cardio: COMMON NORMALS: regular rate, regular rhythm and S2 normal heart sound present RATE: regular rate RHYTHM: regular rhythm HEART SOUNDS: S2 normal heart sound present OTHER: No lower extremity edema GI: COMMON NORMALS: Normal to inspection, nondistended, normoactive bowel sounds present, Soft to palpation and non-tender PALPATION: Yes Soft to palpation Neuro: COMMON NORMALS: patient oriented x3 and no focal motor deficits Data : 07/06/20 05:00 07/06/20 05:00 A&P Assessment and plan (1) Intractable nausea and vomiting: Resolved Status: Acute (2) Diarrhea: C. difficile test is negative. Resolved. Status: Acute Qualifiers: Diarrhea type: unspecified type Qualified Code(s): R19.7 - Diarrhea, unspecified (3) Acute hypokalemia: Status: Acute (4) Dehydration with hyponatremia: Status: Acute (5) COVID-19: Status: Acute (6) Seizure disorder: Status: Acute (7) H/O chronic pancreatitis: With pancreatic insufficiency, on enzyme replacement. Status: Acute (8) Hyperglycemia: Status: Acute Additional A&P Information PLAN: We will continue current monitoring and treatment. Patient will receive her last dose of remdesivir tomorrow after which patient will be discharged on oral dexamethasone to complete total of 10 days of treatment. Replete potassium. Attestations Medical Necessity Statement*: Patient with symptomatic COVID-19 infection r equires close inpatient monitoring and treatment till deemed safe for discharge. Coding Level of Care Code Acute High School Physical Education Teacher for [facility] Fwd Diagnoses Intractable nausea and vomiting R11.2 Diarrhea R19.7 Diarrhea type: unspecified type Acute hypokalemia E87.6 Dehydration with hyponatremia E86.0; E87.1 COVID-19 U07.1 Seizure disorder G40.909 H/O chronic pancreatitis Z87.19 Hyperglycemia R73.9
[2020-07-06 12:00] VITALS: BP 132/84; PULSE 69; RESP 16; TEMP 36.9; O2SAT 96
[2020-07-06] MEDS: enoxaparin 40 mg/0.4 mL Syringe SUBCUT (14:30)
[2020-07-06] MEDS: dexamethasone 4 mg/mL INJ 6 MG IVP (14:43)
[2020-07-06 16:00] VITALS: BP 130/85; PULSE 61; RESP 17; TEMP 37.2; O2SAT 94
[2020-07-06 20:00] VITALS: BP 147/80; PULSE 59; RESP 18; TEMP 37; O2SAT 94
[2020-07-06] MEDS: trazodone 100 mg Tablet PO (21:22)
[2020-07-07] VITALS: BP 135/78; PULSE 52; RESP 16; TEMP 36.7; O2SAT 96
[2020-07-07 04:00] VITALS: BP 139/81; PULSE 54; RESP 16; TEMP 36.6; O2SAT 95
[2020-07-07 04:59] LABS: Hematocrit 38.8 % (37.0-47.0); Hemoglobin 12.8 g/dL (11.5-15.3); Lymphocytes # 1.2 10^3/uL (0.8-4.8); Lymphocytes % 24.9 %; Mean Corpuscular Hemoglobin 27.7 pg (28.0-34.0); Mean Platelet Volume 10.1 fL (7.4-10.4); Monocytes # 0.5 10^3/uL (0.2-0.9); Monocytes % 10.3 %; Neutrophils # 3.18 10^3/uL (1.8-7.7); Neutrophils % 64.4 %; Nucleated Red Blood Cells % 0 %; Platelet Count 323 10^3/cmm (130-400); Red Blood Count 4.62 10^6/uL (4.1-5.3); Red Cell Distribution Width 13.3 % (12.1-15.1); White Blood Count 4.9 10^3/uL (4.0-10.0)
--- NOTE | 2020-07-07 07:52 | P.DS_ITS ---
Discharge Providers Date of Admission: 07/02/20 11:29 Date of Discharge: July 07, 2020 Attending Provider at Admission: Daniel Spence MD Attending Provider at Discharge: Daniel Spence MD Primary Care Provider: Kendra Dixon MD Diagnoses at Discharge Discharge Diagnosis (1) Intractable nausea and vomiting: Status: Acute (2) Diarrhea: Status: Acute Qualifiers: Diarrhea type: unspecified type Qualified Code(s): R19.7 - Diarrhea, unspecified (3) Acute hypokalemia: Status: Acute (4) Dehydration with hyponatremia: Status: Acute (5) COVID-19: Status: Acute (6) Seizure disorder: Status: Acute (7) H/O chronic pancreatitis: Status: Acute (8) Hyperglycemia: Status: Acute Reason for Visit Reason for Visit: All COVID symptoms except SOB Hospital Course Discharge Summary: Patient presented with COVID-19 infection with GI manifestation. Because of severity of her complaints decision was made to treat patient with remdesivir and steroids. She gradually improved and this morning reports feeling much better and strong enough to be dismissed home. She needs to get her last dose of remdesivir later this afternoon. We will continue dexamethasone 4 total of 10 days. She had 3 formed bowel movements since yesterday without evidence of hematochezia or melena. She denies shortness of breath or chest pain. Denies cough. Reports that her oral intake is much better. Physical Exam Const: COMMON NORMALS: no acute distress and patient oriented x3 Resp: COMMON NORMALS: normal respiratory effort and clear to auscultation bilaterally AUSCULTATION: clear to auscultation bilaterally Cardio: COMMON NORMALS: regular rate, regular rhythm and S2 normal heart sound present RATE: regular rate RHYTHM: regular rhythm HEART SOUNDS: S2 normal heart sound present OTHER: No lower extremity edema GI: COMMON NORMALS: Normal to inspection, nondistended, normoactive bowel sounds present, Soft to palpation and non-tender PALPATION: Yes Soft to palpa tion Neuro: COMMON NORMALS: patient oriented x3 and no focal motor deficits Discharge Data Data Completed and Pending: Completed Studies During Hospitalization Category Date Time Status XR chest 1V wendy ble [id number] Stat Exams 07/01/20 10:30 Completed Pending at discharge Category Date Time Status Blood Culture Sta t Lab 07/02/20 13:11 Results Complete Blood Co unt w/Auto AM LABS Lab 07/08/20 04:00 Ordered Comprehensive Met abolic Panel AM LA BS Lab 07/07/20 04:50 Received Comprehensive Met abolic Panel AM LA BS Lab 07/08/20 04:00 Ordered Enteric Bacterial Panel by PCR Rout ine Lab 07/06/20 12:50 Received Magnesium AM LABS Lab 07/07/20 04:50 Received Magnesium AM LABS Lab 07/08/20 04:00 Ordered Labs from last 24 hours 07/07/20 07/07/20 07/06/20 04:50 04:50 05:00 WBC 4.9 4.0 RBC 4.62 4.56 Hgb 12.8 12.6 Hct 38.8 39.0 MCV 84.0 85.5 MCH 27.7 L 27.6 L MCHC 33.0 32.3 RDW 13.3 13.4 Plt Count 323 298 MPV 10.1 10.5 H Neut % (Auto) 64.4 51.0 Lymph % (Auto) 24.9 35.0 [place] % (Auto) 10.3 13.4 Eos % (Auto) 0.0 0.0 Baso % (Auto) 0.0 0.3 Neut # (Auto) 3.18 2.03 Lymph # (Auto) 1.2 1.4 [place] # (Auto) 0.5 0.5 Eos # (Auto) 0.0 0.0 Baso # (Auto) 0.0 0.0 Nucleated RBC % (a uto) 0 0 Nucleated RBCs # 0.0 0.0 Sodium Pending Potassium Pending Chloride Pending Carbon Dioxide Pending Anion Gap Pending BUN Pending Creatinine Pending GFR Calculation Pending Glucose Pending Calculated Osmolal ity Pending Calcium Pending Magnesium Pending Total Bilirubin Pending AST Pending ALT Pending Alkaline Phosphata se Pending Total Protein Pending Albumin Pending Globulin Pending Vitals: Last Vital Signs Temp 97.9 F 07/07/20 04:00 Pulse 54 L 07/07/20 04:00 Resp 16 07/07/20 04:00 BP 139/81 07/07/20 04:00 Pulse Ox 95 07/07/20 04:00 Discharge Plan Discharge Patient Disposition: Home Condition: Stable Prescriptions: New dexamethasone 6 mg tablet 6 mg PO Q24H Qty: 5 RF: 0 pantoprazole 40 mg Tablet,Delayed Release (Dr/Ec) 40 mg PO DAILY Qty: 30 RF: 0 Natural Senna Laxative 8.6 mg tablet 8.6 mg PO DAILY PRN (Reason: constipation) Qty: 10 RF: 0 Continued fluticasone propionate 50 mcg/actuation spray,suspension 1 spray INTRANASAL .prn RF: 0 Vimpat 150 mg tablet 150 mg PO BID Qty: 60 RF: 5 losartan 25 mg tablet See Rx Instructions .ROUTE .COMPLEX Qty: 180 RF: 0 oxybutynin chloride 5 mg tablet 5 mg PO BID Qty: 60 RF: 2 metoprolol tartrate 25 mg tablet See Rx Instructions .ROUTE .COMPLEX Qty: 60 RF: 2 trazodone 100 mg tablet 100 mg PO DAILY Qty: 30 RF: 0 venlafaxine 75 mg Capsule,Extended Release 24hr 75 mg PO TID RF: 0 Creon 24,000-76,000 -120,000 unit capsule,delayed release(DR/EC) 1 cap PO DAILY RF: 0 oxycodone-acetaminophen [Percocet] 5-325 mg tablet 1 tab PO Q4H PRN (Reason: pain) Qty: 30 RF: 0 Discharge Orders: Discharge Order (Routine); Ordered 07/07/20 Ordered By: Daniel Spence Referrals: Kendra Dixon MD [Primary Care Provider] - 4-7 days (Please call Wednesday to schedule a follow up appointment. ) Discharge Diet: Advance as tolerated Discharge Activity: Increase activity as tolerated Patient Instructions: Laxative, Stimulant (By mouth), Dexamethasone (By mouth), Pantoprazole (By mouth), Pneumonia Stoplight, Pneumonia - Viral Activity Restrictions/Additional Instructions: Please call your doctor or present to emergency department if your condition worsens or you develop diarrhea, lightheadedness, fatigue or see blood in your stool or black stool. Discharge Attestations Time Spent in Discharge Care*: greater than 30 min Quality Metrics Clinical Quality Measures During this hospital stay, did patient experience: None Coding Level of Care Code Acute Stocking Inspector for [facility] Fwd Diagnoses Intractable nausea and vomiting R11.2 Diarrhea R19.7 Diarrhea type: unspecified type Acute hypokalemia E87.6 Dehydration with hyponatremia E86.0; E87.1 COVID-19 U07.1 Seizure disorder G40.909 H/O chronic pancreatitis Z87.19 Hyperglycemia R73.9
[2020-07-07 08:00] VITALS: BP 162/87; PULSE 59; RESP 20; TEMP 36.7; O2SAT 96
[2020-07-07 08:09] LABS: Alanine Aminotransferase 20 U/L (0-33); Albumin Level 3.4 g/dL (3.5-5.2); Alkaline Phosphatase 64 IU/L (35-105); Anion Gap 13.8 (5-19); Aspartate Amino Transferase 18 U/L (0-32); Blood Urea Nitrogen 9 mg/dL (8-23); Calcium 8.5 mg/dL (8.5-10.5); Carbon Dioxide 26 mmol/L (22-29); Chloride 106 mmol/L (98-107); Globulin 2.7 g/dL (1.3-4.6); Glomerular Filtration Rate 99.7 mL/min (90-130); Glucose 120 mg/dL (65-115); Magnesium 2.1 mg/dL (1.7-2.3); Osmolality Calculated 294 mOsm/kg (285-295); Potassium 3.8 mmol/L (3.5-5.1); Sodium 142 mmol/L (136-145); Total Bilirubin 0.3 mg/dL (0.15-1.2); Total Protein 6.1 g/dL (6.6-8.7)
--- NOTE | 2020-07-07 08:13 | DCPLANNER ---
Updated page 2 of IM and reviewed with pt. She is being d/c'd later this evening and is happy about that.
[2020-07-07 09:00] VITALS: BP 162/87
[2020-07-07] MEDS: venlafaxine ER (24HR) 75 mg Capsule 225 MG PO (09:00)
[2020-07-07] MEDS: oxybutynin 5 mg Tablet PO (09:00)
[2020-07-07] MEDS: losartan 50 mg Tablet PO (09:00)
[2020-07-07] MEDS: lacosamide 50 mg Tablet 150 MG PO (09:00)
[2020-07-07] MEDS: metoprolol tartrate 25 mg Tablet PO (09:01)
[2020-07-07] MEDS: pantoprazole DR 40 mg Tablet PO (09:01)
[2020-07-07] MEDS: dexamethasone 4 mg/mL INJ 6 MG IVP (09:29)
[2020-07-07 10:47] VITALS: BP 162/87
--- NOTE | 2020-07-09 13:07 | PC.SOCIAL ---
Visited with the patients daughter who is staying with the patient at this time. When asked if her mother was set up to see her PCP, she responded that her other was not comfortable with actually going into the doctor office as she did not want to catch a cough because she would end up back into the hospital. I asked if they felt comfortable with doing a virtual visit if this is possible, she stated that that would be fine. I spoke with the daughter about the patients medications, she understood them well, she had no questions or concerns, she stated that she has already picked them up from the pharmacy. We went over the ways to help keep her mothers immune system up, including eating and drinking well, keeping up with Dr. appointments and immunizations, staying away from stress, and resting well. We also spoke of ways to help prevent the Covid 19 spread which included proper hand washing, face covering, social distancing, sanitizing surfaces, turning head when coughing or sneezing. We also spoke of what symptoms to look for and when to be alarmed, these symptoms are; fever of 104 or higher, shortness of breath, trouble breathing, chest pain or discomfort lasting longer then 5 minutes, confusion or trouble waking up and blue lips or face. We also spoke of plasma donation, information will be mailed to the patient. This check writer salesperson attempted to call the [facility] clinic, had to leave a message for them to call and set up an appointment with the patient for a Virtual Visit. Patient is informed of this.
== END 2020-07-07 10:48 | disposition home or self-care (01) | DRG 178 ==
LOC: ER 14:11 → MEDSURG 14:37
PROVIDERS: Emergency Medicine; Nurse Practitioner Family; Admitting Provider Internal Medicine; PCP Family Medicine; Visit Provider Internal Medicine
DX: U07.1 COVID-19 (principal); E87.1 Hypo-osmolality and hyponatremia; R19.7 Diarrhea, unspecified; E86.0 Dehydration; E87.6 Hypokalemia; G40.909 Epilepsy, unspecified, not intractable, without status epilepticus; Z87.19 Personal history of other diseases of the digestive system; R73.9 Hyperglycemia, unspecified
CPT/HCPCS: 12345; 36415; 71045; 80053; 80299; 81001; 83036; 83605; 83615; 83690; 83735; 84484; 85025; 85378; 85384; 86140; 87040; 87426; 87493; 87506; 87635; 87804; 93005; 96372; 96375; 97161; 99283; C9113; G0378; J1100; J1650; J2405; J3480; J3490; J7040

== ENCOUNTER → 2021-01-20 13:05 | Outpatient (BNVA) | payer MEDICARE, OTHER, SELFPAY | PROVIDERS: PCP Family Medicine; Visit Provider Family Medicine | DX: K20.90 Esophagitis, unspecified without bleeding (principal); M48.061 Spinal stenosis, lumbar region without neurogenic claudication; I10 Essential (primary) hypertension; G47.00 Insomnia, unspecified; G40.219 Localization-related (focal) (partial) symptomatic epilepsy and epileptic syndromes with complex partial seizures, intractable, without status epilepticus; Z87.19 Personal history of other diseases of the digestive system | CPT/HCPCS: 80053; 80061; 84443; 85025 ==

== ENCOUNTER → 2021-02-06 09:14 | Outpatient (BNVA) | payer MEDICARE, OTHER, SELFPAY | PROVIDERS: PCP Family Medicine; Visit Provider Orthopaedic Surgery | DX: M47.896 Other spondylosis, lumbar region (principal); M47.894 Other spondylosis, thoracic region; M54.5 Low back pain; M54.6 Pain in thoracic spine | CPT/HCPCS: 72072; 72110 ==

== ENCOUNTER → 2021-03-04 09:15 | Outpatient (BNVA) | payer MEDICARE, OTHER, SELFPAY | PROVIDERS: PCP Family Medicine; Visit Provider Specialist | DX: G40.909 Epilepsy, unspecified, not intractable, without status epilepticus (principal); Z87.891 Personal history of nicotine dependence | CPT/HCPCS: 99214 ==

== ENCOUNTER → 2021-03-24 13:26 | Day surgery (SDC) | payer MEDICARE, OTHER, SELFPAY | PROVIDERS: PCP Family Medicine; Visit Provider Orthopaedic Surgery | DX: Z01.818 Encounter for other preprocedural examination (principal) | CPT/HCPCS: 93005 ==

== ENCOUNTER → 2021-03-24 16:22 | Outpatient (BNVA) | payer MEDICARE, OTHER, SELFPAY | PROVIDERS: PCP Family Medicine; Visit Provider Orthopaedic Surgery | DX: K20.90 Esophagitis, unspecified without bleeding (principal); Z11.52 Encounter for screening for COVID-19 | CPT/HCPCS: 87635 ==

== ENCOUNTER 2021-03-31 15:34 | Inpatient (IN) | payer MEDICARE, OTHER, SELFPAY ==
--- NOTE | 2021-03-24 13:26 | ECG_ITS ---
[facility] Test Date: 2021-03-24 Pat Name: Tammy Brasher Department: Room: Gender: Female Servicenow Administrator Developer: : [id number] Requested By: Pedrito Koroma Order Number: [id number] Nathalia MD: Reza Peralta M.D. Measurements Intervals [place] Rate: 68 P: 37 NH: 185 QRS: -14 QRSD: 97 T: 47 QT: 383 QTc: 407 Interpretive Statements SINUS RHYTHM POSSIBLE ANTERIOR MYOCARDIAL INFARCTION [30 ms Q WAVE IN V3/V4, OR R < 0.2 mV IN V4], OF INDETERMINATE AGE Compared to ECG 07/01/2020 10:46:06 Myocardial infarct finding now present Incomplete right bundle-branch block no longer present Electronically Signed On 03-24-2021 18:11:32 CDT by Reza Peralta M.D. [email or web address]
[2021-03-24 13:43] VITALS: BMI 36.3
--- NOTE | 2021-03-24 15:23 | P.ANESASSM_ITS ---
Pre-Anesthetic Assessment Pre-Anesthetic Assessment: Height/Weight: Height 1.68 m Weight 102.058 kg Preop Diagnosis: degenerative scolisis Proposed Procedure: Operation Date: 03/31/21 07:00 Proposed Procedures p t10 to pelvis PLIF L3/4 L4/5 L5S1 55812, 10780, 43477- X3, 90491, 18858, 85527, 84309, 14866, 68887 m48.061(Not Applicable) - Pedrito Brito, DO Was Beta Liz taken within 24 hours: Yes Was Clonidine taken within 24 hours: N/A Social: Social History: No alcohol and No tobacco Exam: Pre-Anes Outpt Exam: alert, oriented x 3, clear to auscultation bilater ally and regular rate & rhythm Airway: Submandibular: WNL Cervical ROM: WNL MP: 2 Dentition: Full CV/HEM: CV/HEM: HTN GI: GI: GERD Metabolic: Metabolic: Morbid obesity Musc/skel: Musc/skel: Lower Back Pain and OA/DJD Neuropsych: Neuropsych: Neuropathy and Seizure Anesthetic Plan: ASA status: 3 Anesthesia: General Other: Consider A.line, patient OK with transfusion if necessary. Risk of > 500 ml blood loss (7ml/kg in children): Yes, adequate IV access and fluids planned PFSH Anesthesia PFSH: Medical History Diabetes FH: total abdominal hysterectomy and bilateral salpingo-oophorectomy H/O chronic pancreatitis Nocturnal and diurnal enuresis Polyuria Seizure disorder Urgency incontinence Vaginal voiding Surgical History H/O arthroscopic knee surgery H/O breast biopsy H/O cataract extraction H/O shoulder surgery S/P inguinal hernia repair Family History Mother , at age 72 Hypertension Cancer Pancreatic Family/Other Diabetes Stroke Father , at age 90 Cancer Esophageal Brother Cancer Hodgkin's lymphoma Social History Smoking and tobacco status: former smoker Quit status (tobacco): has quit using tobacco Year quit tobacco: 1989 Alcohol intake: never Marital status: Current occupational status: retired History of recent travel: No Data Anesthesia Cardiac Studies: No Data to Display
[2021-03-24 15:41] LABS: Basophils # 0.1 10^3/uL (0.0-0.1); Basophils % 1.5 %; Eosinophils # 0.1 10^3/uL (0.0-0.8); Eosinophils % 1.5 %; Hematocrit 40.2 % (37.0-47.0); Hemoglobin 12.9 g/dL (11.5-15.3); Lymphocytes # 1.7 10^3/uL (0.8-4.8); Mean Corpuscular HGB Conc 32.1 g/dL (30.0-36.0); Mean Corpuscular Hemoglobin 27.9 pg (28.0-34.0); Mean Platelet Volume 10.5 fL (7.4-10.4); Monocytes # 0.6 10^3/uL (0.2-0.9); Monocytes % 9.2 %; Neutrophils # 4.32 10^3/uL (1.8-7.7); Neutrophils % 62.7 %; Nucleated Red Blood Cells % 0 %; Platelet Count 337 10^3/cmm (130-400); Red Blood Count 4.62 10^6/uL (4.1-5.3); Red Cell Distribution Width 13.4 % (12.1-15.1); White Blood Count 6.9 10^3/uL (4.0-10.0)
[2021-03-24 16:07] LABS: Anion Gap 14.2 (5-19); Blood Urea Nitrogen 9 mg/dL (8-23); Calcium 8.6 mg/dL (8.5-10.5); Carbon Dioxide 29 mmol/L (22-29); Chloride 105 mmol/L (98-107); Glomerular Filtration Rate 83.2 mL/min (90-130); Glucose 78 mg/dL (65-115); Osmolality Calculated 296 mOsm/kg (285-295); Potassium 4.2 mmol/L (3.5-5.1); Sodium 144 mmol/L (136-145)
[2021-03-31] VITALS (31 sets, daily range): BP systolic 110–164; BP diastolic 1–102; PULSE 68–107; RESP 12–30; TEMP 36.6–37.6; O2SAT 90–100
--- NOTE | 2021-03-31 | SCC_ITS ---
Procedure Done: 1. L5/S1 interbody fusion with posterolateral fusion 2. L4/5 Interbody fusion with posterolateral fusion 3. L3/4 Interbody fusion with posterolateral fusion 4. Instrumentation T-10 to S1 5. Lumbopelvic fixation 6. posterior spine fusion from T10 to pelvis 7. Cage L5/S1 8. Cage at L4/5 9. Cage L3/4 10. Laminectomy L5 11. Laminectomy L4 12. Laminectomy L3 13. use of autograft from same incision 14. allograft 15. Bone marrow aspirate from right iliac crest 16. use of computer / steroetactic navigation for spine 40 seconds of fluoroscopic guidance, for a cumulative dose of 150.4 mGy, was provided to Dr. Brito by the radiology department. C-arm images of the lumbar spine were saved for the patient's permanent record. [facility]
--- NOTE | 2021-03-31 | XR_ITS ---
WS: [id number] C-ARM RADIOGRAPHS LUMBAR SPINE; 4 IMAGES HISTORY: OR PICS COMPARISON: 02/06/2021 Intraoperative imaging during extensive posterior lumbar fusion and interbody spacer placement. XR/XR lumbar spine 1V [id number] IMPRESSION: Intraoperative imaging during extensive spine fusion.
[2021-03-31] MEDS: sodium chloride 0.9% 1,000 ML 30 ML IV (07:26)
--- NOTE | 2021-03-31 08:06 | P.ANESUD_ITS ---
Pre-Anesthetic Update Pre-Anesthetic Assessment: Date of Surgery/Procedure: 03/31/21 Preop Komal gnosis: degenerative scolisis Proposed Procedure: Operation Date: 03/31/21 08:30 Proposed Procedures p t10 to pelvis PLIF L3/4 L4/5 L5S1 57269, 28717, 12911- X3, 77443, 89165, 21735, 36115, 36926, 27723 m48.061(Not Applicable) - Pedrito Brito, DO Any changes to Pre-Anesthetic Assessment?: No Vitals: Temperature 99.4 F 03/31/21 07:16 Temperature Source Temporal Artery S can 03/31/21 07:16 Pulse Rate 68 03/31/21 07:16 Respiratory Rate 18 03/31/21 07:16 Blood Pressure 139/83 03/31/21 07:16 Blood Pressure Teresa n 101 03/31/21 07:16 Oxygen Delivery Me thod 03/31/21 07:16 Exam: Pre-Anes Outpt Exam: alert, oriented x 3, clear to auscultation bilaterally and regular rate & rhythm Other Pertinent Information: Other Pertinent Information: A-line Cardiac Studies: No Data to Display
--- NOTE | 2021-03-31 08:14 | W.PM.OPSUD ---
Surgery/Procedure H&P Update DATE OF PROCEDURE: March 31, 2021 DATE H&P PERFORMED: 03/31/21 H&P UPDATE INFORMATION: I have reviewed H&P completed within last 30 days and I have examined patient prior to procedure PREOP DIAGNOSIS: degenerative scolisis PLANNED PROCEDURE: Operation Date: 03/31/21 08:30 Proposed Procedures p t10 to pelvis PLIF L3/4 L4/5 L5S1 88538, 40776, 63917- X3, 20794, 25664, 55101, 02118, 64347, 58813 m48.061(Not Applicable) - Pedrito Brito DO
--- NOTE | 2021-03-31 08:15 | PM.HP ---
Providers/Chief Complaint Primary Care Provider: Kendra Dixon MD Chief Complaint: t10 to pelvis PLIF L3/4 L4/5 L5S1 05461, 82055, 63 History of Present Illness Tammy Brasher is a 70 year old female : New 70 year old female patient here for evaluation of her low back pain. Onset: gradually worsening with no known injury Duration: [1 year] Characteristics: [sharp, stabbing, dull, throbbing, burning] Severity: [moderate] Location: [low back] Radiating symptoms: [PERICO legs] Aggravating factors: [standing, walking, bending, and lifting] Alleviating factors: [nothing] Neuro deficits:numbness, tingling, & weakness PERICO legs, incontinence of bowel/bladder, no saddle anesthesia. Prior tx: [oral anti-inflammatories, formal PT] Review of Systems Narrative: EXAM NARRATIVE: CONSTITUTIONAL: The patient is normal appearing, well groomed, cooperative and in no apparent distress. GENERAL: Patient in no acute distress. Well nourished. CARDIAC: Regular rate and rhythm. CHEST: Normal inspirator effort, normal respiratory rate. ABDOMEN: Soft and non-tender. SKIN: Clear, warm and intact. NEURO?PSYCH: The patient is alert and oriented to person, place and time. NEUROVASCULAR: Upper Extremity Sensory - SILT. 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 Radial/ Ulnar/ Median in intact Lower Extremity Sensory - SILT. Motor Strength: Hip flexion L2/3; Ant/inner thigh: 5/5; Hip adduction L2/3: 5/5; Knee extension L4 Lat thigh: 5/5; Toe dorsiflexion L5: 5/5; Ankle dorsiflexion L5/ S1: 5/5; Plantar flexion S1: 5/5. DTR: Triceps 2+; Brachioradialis 2+; Patellar 2+; Achilles 2+. MUSCULOSKELETAL: UPPER EXTREMITIES: The patient had full active ROM in fingers, wrist, elbow, and shoulder. The patient demonstrated ability to fully flex/extend/abduct/adduct fingers, make ok sign, cross 2nd/3rd digits, extend 1st digit fully.. Radial pulse 2+, CR<2 seconds. LOWER EXTREMITIES: Pt has full, active ROM of toes, ankle, knee, and hip. Dorsalis pedis & posterior tibialis pulses 2+, CR<2 seconds. SPINE: Skin warm, dry, intact. Medications/Allergies Home Medications Medication Instructions Recorded Confirmed Last Taken Type fluticasone propionate 50 1 spray INTRANASAL .prn ml 10/18/19 03/24/21 Unknown History mcg/actuation nasal spray,suspension lacosamide 150 mg tablet 150 mg PO BID #180 tab 07/16/20 03/31/21 03/31/21 Rx losartan 25 mg tablet See Rx Instructions .ROUTE 07/16/20 03/31/21 03/30/21 Rx .COMPLEX #180 tab venlafaxine 75 mg capsule,extended 75 mg PO TID #270 cap 07/16/20 03/31/21 03/30/21 Rx release 24 hr diclofenac sodium 1 % topical gel 2 g TOPICAL QID PRN #100 g 10/04/20 03/31/21 Unknown Rx nystatin 100,000 unit/gram topical 1 applic TOPICAL BID #30 g 10/14/20 03/24/21 Unknown Rx cream famotidine 40 mg tablet See Rx Instructions .ROUTE 01/14/21 03/31/21 03/30/21 Rx .COMPLEX #90 tab xahyrm-qqmzixza-vjrotjv 2 cap PO TID cap 01/20/21 03/31/21 03/31/21 History 3,000-9,500-15,000 unit capsule,delayed releas oxybutynin chloride 15 mg 15 mg PO DAILY #30 tab 01/20/21 03/31/21 03/30/21 Rx tablet,extended release 24 hr metoprolol succinate 25 mg 25 mg PO BID 01/29/21 03/31/21 03/31/21 History tablet,extended release 24 hr prednisone 20 mg tablet 20 mg PO DAILY #15 tab 02/06/21 03/24/21 Unknown Rx ascorbate calcium (vitamin C) 500 500 mg PO DAILY 03/04/21 03/24/21 Unknown History mg tablet cholecalciferol (vitamin D3) 350 1 unit PO DAILY 03/04/21 03/31/21 03/29/21 History mcg (14,000 unit) capsule zinc 50 mg tablet 50 mg PO DAILY 03/04/21 03/31/21 03/30/21 History pantoprazole 40 mg PO DAILY 03/24/21 03/31/21 03/31/21 History Allergies Allergy/AdvReac Type Severity Reaction Status Date / Time hydrocodone AdvReac ADR-Itching Verified 03/04/21 09:41 PFSH Acute PFSH: Medical History Diabetes FH: total abdominal hysterectomy and bilateral salpingo-oophorectomy H/O chronic pancreatitis Nocturnal and diurnal enuresis Polyuria Seizure disorder Urgency incontinence Vaginal voiding Surgical History H/O arthroscopic knee surgery H/O breast biopsy H/O cataract extraction H/O shoulder surgery S/P inguinal hernia repair Family History Mother , at age 72 Hypertension Cancer Pancreatic Family/Other Diabetes Stroke Father , at age 90 Cancer Esophageal Brother Cancer Hodgkin's lymphoma Social History Smoking and tobacco status: former smoker Quit status (tobacco): has quit using tobacco Year quit tobacco: 1989 Alcohol intake: never Marital status: Current occupational status: retired History of recent travel: No Vitals/I&O/Wt Last Vital Signs Temp 99.4 F 03/31/21 07:16 Pulse 68 03/31/21 07:16 Resp 18 03/31/21 07:16 BP 139/83 03/31/21 07:16 Physical Exam Narrative: EXAM NARRATIVE: EXAM NARRATIVE: CONSTITUTIONAL: The patient is normal appearing, well groomed, cooperative and in no apparent distress. GENERAL: Patient in no acute distress. Well nourished. CARDIAC: Regular rate and rhythm. CHEST: Normal inspirator effort, normal respiratory rate. ABDOMEN: Soft and non-tender. SKIN: Clear, warm and intact. NEURO?PSYCH: The patient is alert and oriented to person, place and time. NEUROVASCULAR: Upper Extremity Sensory - SILT. 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 Radial/ Ulnar/ Median in intact Lower Extremity Sensory - SILT. Motor Strength: Hip flexion L2/3; Ant/inner thigh: 5/5; Hip adduction L2/3: 5/5; Knee extension L4 Lat thigh: 5/5; Toe dorsiflexion L5: 5/5; Ankle dorsiflexion L5/ S1: 5/5; Plantar flexion S1: 5/5. DTR: Triceps 2+; Brachioradialis 2+; Patellar 2+; Achilles 2+. MUSCULOSKELETAL: UPPER EXTREMITIES: The patient had full active ROM in fingers, wrist, elbow, and shoulder. The patient demonstrated ability to fully flex/extend/abduct/adduct fingers, make ok sign, cross 2nd/3rd digits, extend 1st digit fully.. Radial pulse 2+, CR<2 seconds. LOWER EXTREMITIES: Pt has full, active ROM of toes, ankle, knee, and hip. Dorsalis pedis & posterior tibialis pulses 2+, CR<2 seconds. SPINE: Skin warm, dry, intact. Data : 03/24/21 14:00 03/24/21 14:00 A&P Assessment and plan (1) Lumbar stenosis: [id number] PSf Status: Acute Attestations Medical Necessity Statement*: failed conservative tx Coding Level of Care Code Acute Podiatry Doctor for g Fwd Diagnoses Lumbar stenosis M48.061
--- NOTE | 2021-03-31 10:14 | SUR.OPER ---
Family Notified Of Patient's Status Via Phone.
[2021-03-31] MEDS: heparin, porcine 1,000 unit/mL INJ 10 mL 10000 UNIT IRRIGATION (10:40)
[2021-03-31] MEDS: vancomycin 1,000 MG SDV 1000 MG XX ×2 (10:40→14:51)
--- NOTE | 2021-03-31 12:10 | SUR.OPER ---
Family Notified Of Patient's Status Via Phone.
--- NOTE | 2021-03-31 15:01 | SUR.OPER ---
Family Notified Of Patient's Status Via Phone.
--- NOTE | 2021-03-31 15:48 | P.OP_ITS ---
Operative Report Date of procedure: March 31, 2021 Pre-op Diagnosis: degenerative scolisis Post-op diagnosis: same Procedure Done: 1. L5/S1 interbody fusion with posterolateral fusion 2. L4/5 Interbody fusion with posterolateral fusion 3. L3/4 Interbody fusion with posterolateral fusion 4. Instrumentation T-10 to S1 5. Lumbopelvic fixation 6. posterior spine fusion from T10 to pelvis 7. Cage L5/S1 8. Cage at L4/5 9. Cage L3/4 10. Laminectomy L5 11. Laminectomy L4 12. Laminectomy L3 13. use of autograft from same incision 14. allograft 15. Bone marrow aspirate from right iliac crest 16. use of computer / steroetactic navigation for spine Surgeon: Pedrito Brito Anesthesia: General Estimated blood loss (mL): 700 Condition: stable Disposition: PACU Procedure: 1. L5/S1 interbody fusion with posterolateral fusion 2. L4/5 Interbody fusion with posterolateral fusion 3. L3/4 Interbody fusion with posterolateral fusion 4. Instrumentation T-10 to S1 5. Lumbopelvic fixation 6. posterior spine fusion from T10 to pelvis 7. Cage L5/S1 8. Cage at L4/5 9. Cage L3/4 10. Laminectomy L5 11. Laminectomy L4 12. Laminectomy L3 13. use of autograft from same incision 14. allograft 15. Bone marrow aspirate from right iliac crest 16. use of computer / steroetactic navigation for spine Patient is brought to the operative suite. After undergoing anesthesia, the patient had neuro monitoring attached. Patient was then placed in the prone position on the Daniel table. All areas of impingement were well-padded. Patient was then prepped and draped in the normal sterile fashion. Skin incision was then made over the T10 -S1 . Subperiosteal dissection was made out to the transverse processes of T10 down to the sacral mark bilaterally. Once the exposure was complete attention was then brought to placing the pedicle screws. Prior to placing the pedicle screws the Simplee bone marrow aspirate kit was used to aspirate bone marrow aspiratefrom the right iliac crest. This was done by using the sharp probe to open up the bone. Aspiration was performed and then the blunt probe was then used to dissect down to through the bone tunnel. An aspirating well drawn back a millimeter approximately 20 cc of bone marrow aspirate was used. And mixed with the allograft and autograft bone that will be used. After the bone marrow was aspirated attention was then brought to placing the fiducial in the right iliac crest. The pins were placed. There placed lateral in the iliac crest. And then the fiducial was attached on this. A C-arm was then used to spin in order to facilitate placing the screws. The C arm send the information into the computer which then send information into the gearshift probe in the screw and taps. The technique for placing the pedicle screws was to use a drill followed by the gearshift attached to a fiducial links to the computer probe. Followed by the ball probe to feel the superior inferior medial lateral hitchcock of the pedicles. Then placement of the screws using the computer navigation. Was done at each pedicle. Screws were placed at T10 to S1 bilaterally and Screws were placed into the iliac crest bilaterally. Next attention was brought to performing the laminectomy ofL5. This was done using the high-speed bur Kerrisons and curettes. Once the lamina was removed and then attention was brought to performing a partial facetectomy on the contralateral side. This was done again using the high-speed bur curettes and Kerrisons. The ligamentum flavum was taken down bilaterally from L5 to S1. Attention was then brought to the facet on the ipsilateral side. The facet was taken down. The S1 nerve was decompressed as it passed around the S1 pedicle. The laminectomy was done for purposes of decompressing the nerve as well as placement of the cage. The L5 nerve was identified as it traversed through the L5/S1 foramen. The thecal sac was identified and retracted. The L5/S1 disc base was identified. Using a knife the disc base was opened. And then sequential eileen were placed. The first shaver was a 6 and the last shaver was a 10. Using a pituitary and down going curette the endplates were scraped and disc material was removed from the space. Once adequate decompression of the disc base was felt to be had. Osteoamp sponge was packed into the anterior aspect of the disc base. Then a size 10 cage from [place] was placed after packing osteoamp into the cage. While placing the cage the thecal sac and S1 nerve was protected. C arm was used to ensure that the cages placed in the appropriate position. Next attention was brought to performing the laminectomy ofL4. This was done using the high-speed bur Kerrisons and curettes. Once the lamina was removed and then attention was brought to performing a partial facetectomy on the contralateral side. This was done again using the high-speed bur curettes and Kerrisons. The ligamentum flavum was taken down bilaterally from L4 to L5. Attention was then brought to the facet on the ipsilateral side. The facet was taken down. The L5 nerve was decompressed as it passed around the L5 pedicle. The laminectomy was done for purposes of decompressing the nerve as well as placement of the cage. The L4 nerve was identified as it traversed through the L4/5 foramen. The thecal sac was identified and retracted. The L4/5 disc base was identified. Using a knife the disc base was opened. And then sequential eileen were placed. The first shaver was a 6 and the last shaver was a 11. Using a pituitary and down going curette the endplates were scraped and disc material was removed from the space. Once adequate decompression of the disc base was felt to be had. Osteoamp sponge was packed into the anterior aspect of the disc base. Then a size 11 cage from [place] was placed after packing osteoamp into the cage. While placing the cage the thecal sac and L5 nerve was protected. C arm was used to ensure that the cages placed in the appropriate position. Next attention was brought to performing the laminectomy of L3. This was done using the high-speed bur Kerrisons and curettes. Once the lamina was removed and then attention was brought to performing a partial facetectomy on the contralateral side. This was done again using the high-speed bur curettes and Kerrisons. The ligamentum flavum was taken down bilaterally from L3 to L4. Attention was then brought to the facet on the ipsilateral side. The facet was taken down. The L4 nerve was decompressed as it passed around the L4 pedicle. The laminectomy was done for purposes of decompressing the nerve as well as placement of the cage. The L3 nerve was identified as it traversed through the L3/4 foramen. The thecal sac was identified and retracted. The L3/4 disc base was identified. Using a knife the disc base was opened. And then sequential eileen were placed. The first shaver was a 6 and the last shaver was a 8. Using a pituitary and down going curette the endplates were scraped and disc material was removed from the space. Once adequate decompression of the disc base was felt to be had. Osteoamp sponge was packed into the anterior aspect of the disc base. Then a size 8 cage from [place] was placed after packing osteoamp into the cage. While placing the cage the thecal sac and L4 nerve was protected. C arm was used to ensure that the cages placed in the appropriate position. Attention was then brought to attaching the rods to the screws placed in the t10 to S1 bilaterally and attaching on to the (pelvis) illiac screws bilaterally. Reduction towers were then used to reduce the scoliosis. Caps were torqued into position. Locking the construct in place. Wound was copiously irrigated and then attention was brought to decorticating the facets and transverse processes laterally. Bone that was taken down from the lamina was used along with osteoamp fibers and sponges were packed into the lateral gutters along the facet joints from T10 down to the sacral ala. This was done bilaterally. The fiducials were removed from the iliac crest these wounds were irrigated and closed with nylon suture. Wound was then closed in a layered fashion starting with the thoracolumbar fascia. 0-strata fix l was used the sub cutaneous tissue was closed with 2-0 strata fix and skin with 3-0 nylon l. a steril Silverlon dressing was applied. Patient was then placed in the supine position. The endotracheal tube was removed and patient was transferred to the PACU in stable condition.
[2021-03-31] MEDS: fentaNYL 50 mcg/mL INJ 2mL IVP (16:43)
[2021-03-31] MEDS: sodium chloride 0.9% 1,000 ML 100 ML IV (16:52)
--- NOTE | 2021-03-31 16:55 | SUR.PHASEI ---
pt awakes to voice but does not verbally respond pt moves all extremities and richard out but does not follow verbal commands see earlier med given pt log rolled and dressing d/i . pt care assumed by WADE KIM
[2021-03-31] MEDS: HYDROmorphone 1 mg/mL INJ 1 mL 0.25 MG IVP ×4 (17:14→19:14)
[2021-03-31 17:30] LABS: Add Urine Microscopic? YES; Bilirubin Urine Neg (Negative); Blood Urine Neg (Negative); Glucose Urine UA Norm (Normal); Ketones Urine 1+ (Negative); Leukocyte Esterase Urine Negative (Negative); Nitrate Urine Negative (Negative); Protein Urine Trace (Negative); Specific Gravity, Urine 1.015 (1.005-1.030); Urine Appearance Cloudy (CLEAR); Urine Color Yellow (Yellow); Urobilinogen Urine Norm (Negative); pH Urine 5 (5-7)
[2021-03-31 17:32] LABS: Bacteria Urine TRACE /hpf
[2021-03-31 17:33] LABS: Add Urine Culture? No; Amorphous Sediment Urine 2+ /hpf
--- NOTE | 2021-03-31 18:28 | CTR_ITS ---
PROCEDURE INFORMATION: Exam: CT Head Without Contrast Exam date and time: 03/31/2021 6:28 PM Age: 70 years old Clinical indication: Altered mental status/memory loss; Confusion or disorientation; Additional info: Post surgery confusion TECHNIQUE: Imaging protocol: Computed tomography of the head without contrast. Radiation optimization: All CT scans at this facility use at least one of these dose optimization techniques: automated exposure control; mA and/or kV adjustment per patient size (includes targeted exams where dose is matched to clinical indication); or iterative reconstruction. Other technique: STROKE PROTOCOL was implemented. 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 Mild periventricular mild white matter chronic microvascular changes are noted. No hemorrhage or evidence of acute infarction is visualized. Cerebral ventricles: No ventriculomegaly. Paranasal sinuses: Mild bilateral ethmoid sinusitis is appreciated Mastoid air cells: Visualized mastoid air cells are well aerated. Bones/joints: Unremarkable. No acute fracture. Soft tissues: Unremarkable. CT/CT head wo con* [id number] IMPRESSION: No acute intracranial abnormality. Mild sinusitis. ASSESSMENT: ASPECTS ([place] Stroke Program Early CT Score) is 10. Radiation Dose CTDIVOL = (mGy): DLP = 1340.31 (mGy-cm)
--- NOTE | 2021-03-31 18:45 | SUR.PHASEI ---
1700 PT NOT RESPONDING TO VERBAL COMMANDS, ONLY MOANING PERIODICALLY
--- NOTE | 2021-03-31 18:46 | SUR.PHASEI ---
1710 PT WILL COMMUNICATE PAIN , WILL NOT COMMUNICATE WHERE OR DESCRIBE, MOVING ALL EXTREMITIES
--- NOTE | 2021-03-31 18:48 | SUR.PHASEI ---
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
--- NOTE | 2021-03-31 18:51 | SUR.PHASEI ---
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
--- NOTE | 2021-03-31 18:54 | SUR.PHASEI ---
183 PT ABLE TO COMMUNICATE BETTER, BUT STILL CONFUSED AND NOT RESPONDING APPROPRIATELY TO QUESTION, KNOWS NAME AND , NO CHANGE IN USE OF EXTREMITIES
--- NOTE | 2021-03-31 19:00 | SUR.PHASEI ---
[address] MCCAIN WITH CONCERNS OF PT MENTAL STATUS, DR. MCCAIN ORDERED STAT CT TO RULE OUT STROKE
--- NOTE | 2021-03-31 19:01 | SUR.PHASEI ---
[address] CONCEPCION WITH UPDATE, HE SUGGESTED TO NOTIFY HOSPITALIST FIRST. [address] SCHWAB [address] 1851 PT ARRIVED BACK TO PACU, DR SCHWAB PRESENT AND ACCESSED PT
--- NOTE | 2021-03-31 19:41 | CTR_ITS ---
PROCEDURE INFORMATION: Exam: CT Angiography Head With Contrast, Arteriography Exam date and time: 03/31/2021 7:41 PM Age: 70 years old Clinical indication: Other: AMS; Additional info: Possible CVA TECHNIQUE: Imaging protocol: Computed tomography angiography of the head with contrast. Exam focused on the arteries. 3D rendering (Not supervised by radiologist): MIP and/or 3D reconstructed images were created by the technologist. Radiation optimization: All CT scans at this facility use at least one of these dose optimization techniques: automated exposure control; mA and/or kV adjustment per patient size (includes targeted exams where dose is matched to clinical indication); or iterative reconstruction. Contrast material: OMNI 350; Contrast volume: 95 ml; Contrast route: INTRAVENOUS (IV); COMPARISON: CT head wo con* [id number] 03/31/2021 6:42 PM RADIATION DOSE METRICS: Total DLP (mGy-cm): 2610.73 FINDINGS: ANTERIOR CIRCULATION: Right internal carotid artery: Unremarkable. Intracranial segment is patent with no significant stenosis. No aneurysm. Right middle cerebral artery: Unremarkable. No occlusion or significant stenosis. No aneurysm. Right anterior cerebral artery: Unremarkable. No occlusion or significant stenosis. No aneurysm. Left internal carotid artery: Unremarkable. Intracranial segment is patent with no significant stenosis. No aneurysm. Left middle cerebral artery: Unremarkable. No occlusion or significant stenosis. No aneurysm. Left anterior cerebral artery: Unremarkable. No occlusion or significant stenosis. No aneurysm. POSTERIOR CIRCULATION: Right vertebral artery: Unremarkable. No occlusion or significant stenosis. No aneurysm. Left vertebral artery: Unremarkable. No occlusion or significant stenosis. No aneurysm. Basilar artery: Unremarkable. No occlusion or significant stenosis. No aneurysm. Right posterior cerebral artery: Unremarkable. No occlusion or significant stenosis. No aneurysm. Left posterior cerebral artery: Unremarkable. No occlusion or significant stenosis. No aneurysm. IMPRESSION: Patent intracranial arteries. PROCEDURE INFORMATION: Exam: CT Angiography Neck With Contrast Exam date and time: 03/31/2021 7:41 PM Age: 70 years old Clinical indication: Other: AMS; Additional info: Possible CVA TECHNIQUE: Imaging protocol: Computed tomography angiography of the neck with contrast. 3D rendering (Not supervised by radiologist): MIP and/or 3D reconstructed images were created by the technologist. Radiation optimization: All CT scans at this facility use at least one of these dose optimization techniques: automated exposure control; mA and/or kV adjustment per patient size (includes targeted exams where dose is matched to clinical indication); or iterative reconstruction. Contrast material: OMNI 350; Contrast volume: 95 ml; Contrast route: INTRAVENOUS (IV); COMPARISON: CT head wo con* [id number] 03/31/2021 6:42 PM RADIATION DOSE METRICS: Total DLP (mGy-cm): 2610.73 FINDINGS: Right common carotid artery: No stenosis. No dissection or occlusion. Right internal carotid artery: No stenosis of the extracranial segment. No dissection or occlusion. Right external carotid artery: No occlusion or stenosis of the origin. Left common carotid artery: No stenosis. No dissection or occlusion. Left internal carotid artery: No stenosis of the extracranial segment. No dissection or occlusion. Left external carotid artery: No occlusion or stenosis of the origin. Right vertebral artery: No stenosis. No dissection or occlusion. Left vertebral artery: No stenosis. No dissection or occlusion. Soft tissues: Normal. No significant soft tissue swelling. Bones/joints: [id number]-[id number] degenerative changes are observed in the visualized spine. No acute fracture. Spinal alignment is normal. CT/CT angio headneck* [id number] IMPRESSION: Patent neck carotid and vertebral arteries. REFERENCES: NASCET CRITERIA. The degree of internal carotid artery stenosis is based on NASCET criteria. Normal is no stenosis. Mild is less than 50% stenosis. Moderate is 50-69% stenosis. Severe is 70% to 99% stenosis. Total occlusion is no detectable patent lumen. Radiation Dose CTDIVOL = (mGy): DLP = 2610.73~2610.73 (mGy-cm)
--- NOTE | 2021-03-31 19:42 | XRR_ITS ---
PROCEDURE INFORMATION: Exam: XR Chest Exam date and time: 03/31/2021 7:42 PM Age: 70 years old Clinical indication: Prior surgery; Patient HX: AMS, post back SX today, unable to obtain history TECHNIQUE: Imaging protocol: XR of the chest. Views: 1 view. COMPARISON: CR XR chest 1V portable [id number] 07/01/2020 10:30 AM FINDINGS: Lungs: Right basilar atelectasis is noted. Pleural spaces: Unremarkable. No pleural effusion. No pneumothorax. Heart/Mediastinum: Unremarkable. No cardiomegaly. Bones/joints: Spinal fusion hardware is seen in the thoracolumbar spine region. XR/XR chest 1V portable [id number] IMPRESSION: Right basilar atelectasis.
[2021-03-31 19:45] LABS: Glucose Point of Care 155 mg/dL (70-110)
[2021-03-31] MEDS: iohexol 350 mg/mL 100 mL Btl IV (20:09)
[2021-03-31] MEDS: morphine 4 mg/mL SDV 1 mL 2 MG IVP (20:44)
[2021-03-31 21:19] LABS: Glucose Point of Care 157 mg/dL (70-110)
--- NOTE | 2021-03-31 21:33 | P.CONIM_ITS ---
Providers/Reason For Consult Consulting Physician/Specialty*: Hospitalist Reason for Consult*: medical management Attending Physician: Pedrito Brito DO Primary Care Provider: Kendra Dixon MD History of Present Illness History of Present Illness 70-year-old lady with history of seizure disorder, HTN, diabetes, pancreatitis, recently memory loss, underwent [id number] PLIF in unremarkable although long procedure performed electively today. EBL 700. Subsequently with noted taking while waking up from anesthesia, then noted with some confusion, somewhat stuttering, repetitive speech, difficulty following commands, answering questions. Concern of CVA was raised, she underwent assessment by head CT. On my evaluation she is shivering, although is not hypothermic, temperature 98.5. She is not a good historian, but is able to give some answers to ROS questions. She is feeling cold. She denies pain. Denies trouble breathing. Denies chest pain. Denies headache or dizziness. Feels something is wrong, unable to explain. At times repeating herself please, please, please . I need something . 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 When asked what she needs unable to state. Most answers are short or one-word. Knows she is in the hospital. Knows she is at [facility]. Does not remember the year. CT of the head is unremarkable. She is not hypoglycemic, glucose 157. On review of vitals during surgery, has not been hypotensive. Per discussion with her her not remember the year is not surprising as she recently has not been remembering certain things including the year, and having difficulty paying her bills. She does remember other things, for example he states she still takes her own medications. However, he does state has been having short-term memory loss, also noticed by her daughter. reports history of TIA. Neurological examination is also otherwise limited due to having just had spine surgery. Overall does participate and possible aphasia cannot be excluded. Possible sensory hemineglect cannot be excluded, although she is not consistently answering, answers to all questions on sensory exam with eyes closed left , even when not being touched. CT angiogram of head and neck obtained this evening shows patent intracranial and neck vessels. UA obtained is unremarkable, with incidentally noted 5-10 uric acid crystals. Amorphous sediment. Trace bacteria. No cells. Negative nitrate and leukocyte esterase. Requested chest x-ray with right basilar atelectasis. Review of Systems Const: Reports: malaise; Denies: fever(s), chills or body aches Eyes: Denies: change in vision or eye redness ENMT: Denies: throat pain, oral sores or ear or mastoid pain Card: Denies: chest pain, edema, pre-syncope or dyspnea on exertion Resp: Denies: dyspnea, productive cough, change in phlegm color or hemoptysis GI: Denies: abdominal pain, vomiting, diarrhea, constipation, hematochezia or melena : Denies: flank pain, urinary frequency or hematuria Musc: Denies: back pain, joint swelling or joint redness Skin/Breast: Denies: rash, sores or new lesions Neuro: Reports: confusion; Denies: headache(s), numbness in extremities, weakness in extremities, dizziness or seizure-like activity Endo: Denies: polyuria or polydipsia Samy/Lymph: Denies: easy bleeding or purpura All/Imm: Denies: urticaria, throat swelling or tongue swelling Meds/Allergies Home Medications and Allergies Home Medications Medication Instructions Recorded Confirmed Last Taken Type fluticasone propionate 50 1 spray INTRANASAL .prn ml 10/18/19 03/24/21 Unknown History mcg/actuation nasal spray,suspension lacosamide 150 mg tablet 150 mg PO BID #180 tab 07/16/20 03/31/21 03/31/21 Rx losartan 25 mg tablet See Rx Instructions .ROUTE 07/16/20 03/31/21 03/30/21 Rx .COMPLEX #180 tab venlafaxine 75 mg capsule,extended 75 mg PO TID #270 cap 07/16/20 03/31/2103/30 Rx release 24 hr diclofenac sodium 1 % topical gel 2 g TOPICAL QID PRN #100 g 10/04/20 03/31/21 Unknown Rx nystatin 100,000 unit/gram topical 1 applic TOPICAL BID #30 g 10/14/20 03/24/21 Unknown Rx cream famotidine 40 mg tablet See Rx Instructions .ROUTE 01/14/21 03/31/21 03/30/21 Rx .COMPLEX #90 tab [id number]-[id number] 2 cap PO TID cap 01/20/21 03/31/21 03/31/21 History 3,000-9,500-15,000 unit capsule,delayed releas oxybutynin chloride 15 mg 15 mg PO DAILY #30 tab 01/20/21 03/31/21 03/30/21 Rx tablet,extended release 24 hr metoprolol succinate 25 mg 25 mg PO BID 01/29/21 03/31/21 03/31/21 History tablet,extended release 24 hr prednisone 20 mg tablet 20 mg PO DAILY #15 tab 02/06/21 03/24/21 Unknown Rx ascorbate calcium (vitamin C) 500 500 mg PO DAILY 03/04/21 03/24/21 Unknown History mg tablet cholecalciferol (vitamin D3) 350 1 unit PO DAILY 03/04/21 03/31/21 03/29/21 History mcg (14,000 unit) capsule zinc 50 mg tablet 50 mg PO DAILY 03/04/21 03/31/21 03/30/21 History pantoprazole 40 mg PO DAILY 03/24/21 03/31/21 03/31/21 History Allergies Allergy/AdvReac Type Severity Reaction Status Date / Time hydrocodone AdvReac ADR-Itching Verified 03/04/21 09:41 Current Medications Current Medications Generic Name Dose Route Start Last Admin Trade Name Freq PRN Reason Stop Dose Admin Docusate Sodium 100 mg 03/31/21 18:00 03/31/21 21:05 Docusate Sodium 100 Mg Capsule PO Not Given BID LUISA Lacosamide 150 mg 03/31/21 18:00 03/31/21 21:07 Lacosamide 50 Mg Tablet PO Not Given BID [facility] Losartan Potassium 50 mg 03/31/21 18:00 03/31/21 21:07 Losartan 50 Mg Tablet PO Not Given DAILY LUISA Metoprolol Succinate 25 mg 03/31/21 18:00 03/31/21 21:07 Metoprolol Succinate Er (24 Hr) 25 Mg Tablet PO Not Given BID LUISA Morphine Sulfate 2 mg 03/31/21 16:25 03/31/21 20:44 Morphine 4 Mg/Ml Sdv 1 Ml IVP 2 mg Q4H PRN Administration SEVERE PAIN Nystatin 1 applic 03/31/21 18:00 03/31/21 21:08 Nystatin Cream 30 Gm TOPICAL Not Given BID LUISA PFSH Acute PFSH: Medical History (Updated 03/31/21 @ 21:43 by Basim Gorman MD) Diabetes FH: total abdominal hysterectomy and bilateral salpingo-oophorectomy H/O chronic pancreatitis Nocturnal and diurnal enuresis Polyuria Seizure disorder TIA (transient ischemic attack) Urgency incontinence Vaginal voiding Surgical History (Updated 03/31/21 @ 21:42 by Basim Gorman MD) H/O arthroscopic knee surgery H/O breast biopsy H/O cataract extraction H/O shoulder surgery S/P inguinal hernia repair Family History Mother , at age 72 Hypertension Cancer Pancreatic Family/Other Diabetes Stroke Father , at age 90 Cancer Esophageal Brother Cancer Hodgkin's lymphoma Social History Smoking and tobacco status: former smoker Quit status (tobacco): has quit using tobacco Year quit tobacco: 1989 Alcohol intake: never Marital status: Current occupational status: retired History of recent travel: No Vitals/I&O/Wt Last Vital Signs Temp 97.9 F 03/31/21 20:20 Pulse 105 H 03/31/21 20:20 Resp 24 H 03/31/21 20:44 BP 148/87 03/31/21 20:20 Pulse Ox 97 03/31/21 20:20 03/31/21 03/31/21 03/31/21 06:59 14:59 22:59 Intake Total 100 / 100 1500 / 1600 Output Total 900 / 900 Balance 100 / 100 600 / 700 Physical Exam Const: COMMON NORMALS: no acute distress NUTRITIONAL APPEARANCE: overweight ORIENTATION/CONSCIOUSNESS: Yes oriented to person, Yes oriented to place and Yes confused HENMT: COMMON NORMALS: oropharynx normal Neck/C-Spine: COMMON NORMALS: no meningeal signs and no JVD Resp: COMMON NORMALS: normal respiratory effort and clear to auscultation bilaterally AUSCULTATION: clear to auscultation bilaterally Cardio: COMMON NORMALS: no JVD, regular rhythm, S1 normal heart sound present, S2 normal heart sound present and No murmurs present (Cardio) RHYTHM: regular rhythm HEART SOUNDS: S1 normal heart sound present and S2 normal heart sound present GI: COMMON NORMALS: Normal to inspection, nondistended, normoactive bowel sounds present, Soft to palpation and non-tender PALPATION: Yes Soft to palpation Extremity: COMMON NORMALS: no joint enlargement and no pedal edema Neuro: COMMON NORMALS: moves all extremities SENSORIUM/ORIENTATION: Yes oriented to person, Yes oriented to place and Yes fluctuating sensorium MENINGEAL SIGNS: Yes no meningeal signs COORDINATION/BALANCE: ppieyr-ha-uywr test normal (although weak) SPEECH: abnormal speech Details: garbled and slurred (mild) SENSORY EXAM: Yes Abnormal double simultaneous stimulation for sensation (hemineglect poss, though appears confused, stating L even when not touched); No sensory level loss detected MOTOR EXAM: Pronator motor function not present (upper) COORDINATION: hyjkkf-ez-hijv test normal (although weak) OTHER: Tracking. No visual field deficit. Skin: COMMON NORMALS: no rashes or lesions noted GENERAL SKIN EXAM: no rashes or lesions noted Urinary Catheter Management^: F: Cath Placed During This Visit: yes Reason for Continuing Indwelling Catheter: Perioperative Use in Selected Surgeries Urinary Catheter Date of Insertion: 03/31/21 Urinary Catheter Time of Insertion: 09:25 A&P Assessment and plan (1) Acute encephalopathy: Possibly prolonged recovery from anesthesia superimposed by possible recent progression of early dementia as discussed with . However, cannot entirely exclude she did not have CVA. No obvious CVA on plain CT, however, as discussed with cannot exclude. Does appear to have possibility of aphasia. Possible right side sensory hemineglect, although otherwise does not appear to have visual neglect, no motor dysfunction. Also appears to be rather confused, not participating well with exam other than lateral hemineglect, given she states left even when not being touched. NIHSS appears to be possibly 3, although cannot completely perform the exam due to recent surgery. Discussed with her neurologist, we additionally assessed by CT angiogram head and neck. No significant blockage/stenosis noted. As discussed with her on nonemergent basis she would benefit from additional evaluation by MRI after d ischarge in addition to follow-up with neurology. She has history of seizure disorder, although perhaps would doubt seizure intraoperatively. Monitor for any symptoms. Did not have any hypotensive episodes intraoperatively. denies atrial fibrillation. Monitor on telemetry. Additional work-up for possibility of infection so far negative. She is afebrile. With unremarkable UA and chest x-ray. Is not hypoglycemic. Is not hypothermic. Reorient. Supportive care. Pain treatment. Status: Acute (2) Essential hypertension: Monitor blood pressures. She has been continued on losartan, for now we will continue at home 25 mg daily. Status: Acute (3) Seizure disorder: Continue lacosamide. Monitor. Continue follow-up with neurology after discharge. Status: Acute (4) S/P spinal surgery: Status post [id number] PLIF on 03/31. Procedure itself uneventful. Monitor postoperatively. EBL 700 mL. Recheck hemoglobin. Status: Acute (5) History of short term memory loss: reports recently progressive short-term memory loss, not remembering dates, having trouble paying bills. Follow-up with neurology after discharge as discussed with for additional assessment of possible early dementia. Status: Acute (6) Diabetes: Monitor blood glucose. Insulin sliding scale. Status: Acute Additional A&P Information Hx TIA Hx pancreatitis Consult Attestations Medical Necessity Statement: Lower back PLIF, with acute encephalopathy with possible CVA, underlying recent short-term memory loss, and lady also with underlying seizure disorder. Coding Level of Care Code Acute Heel Seat Pounder for [facility] Fwd Diagnoses Acute encephalopathy G93.40 Essential hypertension I10 Seizure disorder G40.909 S/P spinal surgery Z98.890 History of short term memory loss Z87.898 Diabetes E11.9
[2021-03-31] MEDS: lactated ringers 1,000 ML 90 ML IV (21:37)
[2021-03-31] MEDS: oxyCODONE-APAP 5-325 mg Tablet PO (21:39)
[2021-03-31] MEDS: venlafaxine ER (24HR) 75 mg Capsule PO (21:39)
--- NOTE | 2021-03-31 21:40 | ANE.PACU2 ---
Inpatient post-anesthesia follow up: Airway intact: Yes Vital signs: Temperature 97.9 F Pulse Rate 93 Respiratory Rate 15 Blood Pressure 98/62 Pulse Oximetry 93 Oxygen Delivery Me thod Nasal Cannula Oxygen Flow Rate 1 Fraction of Inspir ed Oxygen Hydration adequate: Yes Nausea and vomiting: No Pain level: 3 Mental status: Altered Additional Comments: Confusion, not following commands appropriately, not tracking left. CT head negative for acute stroke. Hospitalist consulted.
[2021-04-01] VITALS (16 sets, daily range): BP systolic 94–120; BP diastolic 55–79; PULSE 83–110; RESP 14–20; TEMP 36.6–37.3; O2SAT 1–97
[2021-04-01] MEDS: oxyCODONE-APAP 5-325 mg Tablet PO ×4 (01:55→20:01)
[2021-04-01 02:13] LABS: Basophils % 0.2 %; Hematocrit 31.7 % (37.0-47.0); Lymphocytes % 5.2 %; Mean Corpuscular HGB Conc 31.5 g/dL (30.0-36.0); Mean Corpuscular Hemoglobin 28.6 pg (28.0-34.0); Mean Corpuscular Volume 90.6 fL (81-99); Mean Platelet Volume 10.3 fL (7.4-10.4); Monocytes # 1.7 10^3/uL (0.2-0.9); Monocytes % 8.9 %; Neutrophils % 85.2 %; Nucleated Red Blood Cells % 0 %; Platelet Count 290 10^3/cmm (130-400); Red Cell Distribution Width 14.2 % (12.1-15.1); White Blood Count 18.6 10^3/uL (4.0-10.0)
[2021-04-01 02:33] LABS: Alanine Aminotransferase 14 U/L (0-33); Alkaline Phosphatase 67 IU/L (35-105); Anion Gap 11.1 (5-19); Aspartate Amino Transferase 33 U/L (0-32); Blood Urea Nitrogen 11 mg/dL (8-23); Calcium 7.7 mg/dL (8.5-10.5); Carbon Dioxide 25 mmol/L (22-29); Chloride 109 mmol/L (98-107); Globulin 2.3 g/dL (1.3-4.6); Glomerular Filtration Rate 71.3 mL/min (90-130); Glucose 132 mg/dL (65-115); Osmolality Calculated 293 mOsm/kg (285-295); Potassium 4.1 mmol/L (3.5-5.1); Sodium 141 mmol/L (136-145); Total Bilirubin 0.3 mg/dL (0.15-1.2); Total Protein 5.3 g/dL (6.6-8.7)
--- NOTE | 2021-04-01 04:12 | PC.NURSE ---
Patient drain tube came apart from the hemovac. Patient was assessed with drain tube intact on patients back. Bedding and abd binder were saturated with blood drainage from drain tube. Output from drain tube is 360 cc bloody discharge.
[2021-04-01] MEDS: enoxaparin 40 mg/0.4 mL Syringe SUBCUT (05:14)
[2021-04-01] MEDS: fluticasone nasal spray 16gm Btl 1 SPRAY INTRANASAL (08:31)
[2021-04-01] MEDS: metoprolol succinate ER (24 HR) 25 mg Tablet PO (08:33)
[2021-04-01] MEDS: oxybutynin chloride XL 5 MG TABLET 15 MG PO (08:33)
[2021-04-01] MEDS: ketorolac 30 mg/mL INJ IVP ×2 (08:33→18:01)
[2021-04-01] MEDS: ascorbic acid 500 mg Tablet PO (08:34)
[2021-04-01] MEDS: docusate sodium 100 mg Capsule PO ×2 (08:34→18:00)
[2021-04-01] MEDS: venlafaxine ER (24HR) 75 mg Capsule PO ×3 (08:34→20:01)
[2021-04-01] MEDS: losartan 50 mg Tablet 25 MG PO (08:34)
[2021-04-01] MEDS: pantoprazole DR 40 mg Tablet PO (08:34)
[2021-04-01] MEDS: lacosamide 50 mg Tablet 150 MG PO ×2 (08:34→18:00)
[2021-04-01] MEDS: zinc gluconate 50 mg Tablet PO (08:35)
[2021-04-01] MEDS: famotidine 20 mg Tablet 40 MG PO (08:35)
[2021-04-01] MEDS: predniSONE 20 mg Tablet PO (08:35)
[2021-04-01] MEDS: lactated ringers 1,000 ML 90 ML IV ×2 (09:52→20:01)
--- NOTE | 2021-04-01 10:14 | P.PN_ITS ---
Subjective Subjective: Interval history: Patient is in pain. Considerably improved from last night. Vitals/I&O/Wt Last Vital Signs Temp 98.5 F 04/01/21 07:08 Pulse 110 H 04/01/21 08:48 Resp 20 H 04/01/21 08:48 BP 108/71 04/01/21 08:34 Pulse Ox 93 04/01/21 08:48 03/31/21 04/01/21 04/01/21 22:59 06:59 14:59 Intake Total 1500 / 1600 650 / 2250 1240 / 1240 Output Total 1200 / 1200 710 / 1910 200 / 200 Balance 300 / 400 -60 / 340 1040 / 1040 Physical Exam Narrative: EXAM NARRATIVE: Patient has 5 out of 5 strength in bilateral lower extremities sensation is intact. Urinary Catheter Management^: F: Cath Placed During This Visit: yes Reason for Continuing Indwelling Catheter: Other Urinary Catheter Date of Insertion: 03/31/21 Urinary Catheter Time of Insertion: 09:25 Data : 04/01/21 02:05 04/01/21 02:05 A&P Assessment and plan (1) Encounter for postoperative care: Patient is postop day #1 T10 to the pelvis. At this point she is complaining of some fungal infection underneath some skin folds. This point we will get some nystatin powder on those. Pain is overall controlled. At this point. It are up with physical therapy today and reevaluate tomorrow. 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
--- NOTE | 2021-04-01 10:18 | PC.CHAP ---
Pastoral Care Encounter/Spiritual Assessment Type of Contact [] Declined outsole beveler visit [] Patient/Family/Request visit [] Outpatient visit [] Follow-up visit [] Physician referral [] Code/Alert [x] Routine visit [] Staff referral [] Actively dying [] Patient sleeping [] Family support [] [] Out of room [] Palliative care [] [x] Receiving care in room [] Pre-surgical visit [] Trauma [] Long length of stay [] ICU visit [] Other: Relational/Emotional Strength [] Patient feels connected with others/family/visitors/staff [] Distress [] Loneliness/isolation [] Abandonment Spirituality of Patient [] Person of Franches[place] [] Attends [facility] of their [place] [] Believes in Prayer [] Reads Bible or Pentecostalism materials [] There are Spiritual issues to be addressed Otr Owner Operator Interventions [] Prayer [] Active listening [] Non-anxious presence [] Spiritual/emotional support [] Crisis/trauma care [] Spiritual counseling [] Bereavement support [] Provided bereavement packet [] Provided Bible/devotional materials [] Provided toy/stuffed animal, coloring book to patient or family member [] Provided Communion [] Anointing/[place] [] Salvation [] Completed spiritual assessment [] Other: Impact on Illness or Injury [] Angry [] Fearful [] Anxious [] Often cries [] Exhaustion [] Unable to work [] Unable to attend jain [] Unable to walk/stand [] Unable to read [] Unable to drive [] Unable to eat/drink [] Unable to sleep [] Unable to be with family [] Patient intubated [] Other: Summary Time spent with patient
[2021-04-01] MEDS: nystatin cream 30 gm 1 APPLIC TOPICAL ×2 (10:39→18:57)
[2021-04-01 11:10] LABS: Glucose Point of Care 144 mg/dL (70-110)
--- NOTE | 2021-04-01 16:35 | PM.PN ---
Subjective Subjective: Interval history: Today she is awake, alert, comfortable, pleasant, conversant. She is still having trouble recording the year, but otherwise gets to date correctly. She does not remember much from yesterday. Subjectively she does not feel that she is having difficulty expressing herself. Reports she was having some numbness in her left hand which is resolving. Denies chest pain or pressure. No trouble breathing. Vitals/I&O/Wt Last Vital Signs Temp 98.3 F 04/01/21 15:27 Pulse 93 04/01/21 15:27 Resp 17 04/01/21 15:27 BP 99/69 04/01/21 15:27 Pulse Ox 94 04/01/21 15:27 04/01/21 04/01/21 04/01/21 06:59 14:59 22:59 Intake Total 700 / 2300 1530 / 1530 Output Total 710 / 1910 1400 / 1400 Balance -10 / 390 130 / 130 Physical Exam Const: COMMON NORMALS: no acute distress and alert GENERAL APPEARANCE: cooperative and comfortable NUTRITIONAL APPEARANCE: overweight ORIENTATION/CONSCIOUSNESS: Yes awake, Yes oriented to person and Yes oriented to place; not confused HENMT: COMMON NORMALS: oropharynx normal Neck/C-Spine: COMMON NORMALS: no meningeal signs and no JVD Resp: COMMON NORMALS: normal respiratory effort and clear to auscultation bilaterally AUSCULTATION: clear to auscultation bilaterally Cardio: COMMON NORMALS: no JVD, regular rhythm, S1 normal heart sound present, S2 normal heart sound present and No murmurs present (Cardio) RHYTHM: regular rhythm HEART SOUNDS: S1 normal heart sound present and S2 normal heart sound present GI: COMMON NORMALS: Normal to inspection, nondistended, normoactive bowel sounds present, Soft to palpation and non-tender PALPATION: Yes Soft to palpation Extremity: COMMON NORMALS: no joint enlargement and no pedal edema Neuro: COMMON NORMALS: moves all extremities SENSORIUM/ORIENTATION: Yes alert, Yes oriented to person, Yes oriented to place and Yes fluctuating sensorium MENINGEAL SIGNS: Yes no meningeal signs COORDINATION/BALANCE: [id number] test normal (although weak) SPEECH: abnormal speech (Possible mild aphasia) SENSORY EXAM: Yes Normal double simultaneous stimulation for sensation; No sensory level loss detected MOTOR EXAM: Pronator motor function not present (upper) COORDINATION: [id number] test normal (although weak) OTHER: Tracking. No visual field deficit. Skin: COMMON NORMALS: no rashes or lesions noted GENERAL SKIN EXAM: no rashes or lesions noted Urinary Catheter Management^: F: Cath Placed During This Visit: yes Reason for Continuing Indwelling Catheter: Other Urinary Catheter Date of Insertion: 03/31/21 Urinary Catheter Time of Insertion: 09:25 Data : 04/01/21 02:05 04/01/21 02:05 A&P Assessment and plan (1) Acute encephalopathy: Her mental status is quite significantly improved. Acute encephalopathy appears to be resolved. Suspect was secondary to protracted recovery from anesthesia with superimposed delirium secondary to possibly mild underlying/developing dementia. She is awake, alert, not in any discomfort or distress. Does not remember much from yesterday. Infectious work-up was unrevealing including unremarkable chest x-ray. UA. She remains afebrile. Does have leukocytosis which is suspected stress related/postsurgical. CT angiogram head and neck performed yesterday was unremarkable. Today on examination she does not have any signs of hemineglect. Suspect this was related more to her confusion than any actual symptoms. She does, however, have possibly some mild aphasia, chronicity of which is unclear. She does confirm as her stated yesterday history of TIAs. We are continuing cardiac monitoring at this time. Discussed with her at some point if safe with neurosurgery may benefit from initiation of aspirin given history of TIA, as well as cholesterol medication. Discussed with her also may benefit from additional assessment by nonemergent MRI to give a better idea as to whether she may have had any CVA. We have not noted any seizure-like activity. Continue to monitor for now. Discussed with her also would benefit from follow-up with neurology with results of MRI, as well as for assessment of possible dementia with recent progressive short-term memory loss. PT OT. Will request ST. Status: Acute (2) Essential hypertension: So far had not had episodes of hypotension, but blood pressure today is noted soft, 89/69. Hold additional losartan for now. Status: Acute (3) Seizure disorder: Continue lacosamide. Monitor. Continue follow-up with neurology after discharge. Status: Acute (4) S/P spinal surgery: Status post [id number] PLIF on 03/31. Procedure itself uneventful. Monitor postoperatively. EBL 700 mL. Noted degree of acute blood loss anemia, hemoglobin down to 10. Recheck level in the morning. Mobilize with PT. Status: Acute (5) History of short term memory loss: reports recently progressive short-term memory loss, not remembering dates, having trouble paying bills. Follow-up with neurology after discharge as discussed with for additional assessment of possible early dementia. Status: Acute (6) Diabetes: Monitor blood glucose. Insulin sliding scale. Status: Acute Additional A&P Information Hx TIA Hx pancreatitis Attestations Medical Necessity Statement*: Continue admission for postoperative care after lower spinal PLIF, with postoperative episode of delirium, superimposed on possibly underlying early dementia, possible TIA or CVA with history of prior TIA. Coding Level of Care Code Acute Laundry Housekeeper for Shonda Babin Diagnoses Acute encephalopathy G93.40 Essential hypertension I10 Seizure disorder G40.909 S/P spinal surgery Z98.890 History of short term memory loss Z87.898 Diabetes E11.9
[2021-04-01 20:31] LABS: Glucose Point of Care 127 mg/dL (70-110)
[2021-04-01 21:00] LABS: Glucose Point of Care 134 mg/dL (70-110)
[2021-04-02] VITALS (15 sets, daily range): BP systolic 102–126; BP diastolic 60–74; PULSE 58–96; RESP 16–19; TEMP 36.4–37.4; O2SAT 91–98
[2021-04-02 02:54] LABS: Basophils # 0.1 10^3/uL (0.0-0.1); Basophils % 0.4 %; Eosinophils % 0.2 %; Hematocrit 22.2 % (37.0-47.0); Lymphocytes # 1.9 10^3/uL (0.8-4.8); Lymphocytes % 13.7 %; Mean Corpuscular HGB Conc 31.5 g/dL (30.0-36.0); Mean Corpuscular Hemoglobin 28.1 pg (28.0-34.0); Mean Corpuscular Volume 89.2 fL (81-99); Monocytes # 1.6 10^3/uL (0.2-0.9); Monocytes % 11.3 %; Neutrophils # 10.14 10^3/uL (1.8-7.7); Nucleated Red Blood Cells % 0 %; Platelet Count 199 10^3/cmm (130-400); Red Blood Count 2.49 10^6/uL (4.1-5.3); Red Cell Distribution Width 14.3 % (12.1-15.1); White Blood Count 13.7 10^3/uL (4.0-10.0)
[2021-04-02 03:17] LABS: Alanine Aminotransferase 9 U/L (0-33); Albumin Level 2.5 g/dL (3.5-5.2); Alkaline Phosphatase 52 IU/L (35-105); Anion Gap 9.5 (5-19); Aspartate Amino Transferase 29 U/L (0-32); Blood Urea Nitrogen 13 mg/dL (8-23); Calcium 7.4 mg/dL (8.5-10.5); Carbon Dioxide 27 mmol/L (22-29); Chloride 105 mmol/L (98-107); Globulin 1.9 g/dL (1.3-4.6); Glomerular Filtration Rate 83.2 mL/min (90-130); Glucose 112 mg/dL (65-115); Osmolality Calculated 287 mOsm/kg (285-295); Potassium 3.5 mmol/L (3.5-5.1); Sodium 138 mmol/L (136-145); Total Bilirubin 0.2 mg/dL (0.15-1.2); Total Protein 4.4 g/dL (6.6-8.7)
[2021-04-02] MEDS: oxyCODONE-APAP 5-325 mg Tablet PO ×3 (04:14→20:02)
[2021-04-02] MEDS: enoxaparin 40 mg/0.4 mL Syringe SUBCUT (05:56)
[2021-04-02 06:43] LABS: Glucose Point of Care 126 mg/dL (70-110)
--- NOTE | 2021-04-02 07:17 | PM.PN ---
Subjective Subjective: Interval history: Pain controlled still feeling weak Vitals/I&O/Wt Last Vital Signs Temp 98.7 F 04/02/21 04:00 Pulse 88 04/02/21 06:00 Resp 18 04/02/21 04:14 BP 106/67 04/02/21 04:00 Pulse Ox 97 04/02/21 04:14 04/01/21 04/02/21 04/02/21 22:59 06:59 14:59 Intake Total 1033.5 / 2563.5 Output Total 275 / 1675 730 / 2405 Balance 758.5 / 888.5 -730 / 158.5 Physical Exam Narrative: EXAM NARRATIVE: sensation intact 5/5 pain Urinary Catheter Management^: F: Cath Placed During This Visit: yes Reason for Continuing Indwelling Catheter: Required Immobilization for Trauma or Surgery or Anesthesia Urinary Catheter Date of Insertion: 03/31/21 Urinary Catheter Time of Insertion: 09:25 Data : 04/02/21 02:40 04/02/21 02:40 A&P Assessment and plan (1) Encounter for postoperative care: POD#2 [id number] Up with PT d/c Drain check Hb tomorrow am Status: Acute Attestations Medical Necessity Statement*: Hb dropped to 7 up with PT Coding Level of Care Code Acute Senior Office Assistant for Shonda Babin Diagnoses Encounter for postoperative care Z48.89
[2021-04-02] MEDS: predniSONE 20 mg Tablet PO (08:37)
[2021-04-02] MEDS: zinc gluconate 50 mg Tablet PO (08:37)
[2021-04-02] MEDS: metoprolol succinate ER (24 HR) 25 mg Tablet PO ×2 (08:37→17:00)
[2021-04-02] MEDS: famotidine 20 mg Tablet 40 MG PO (08:37)
[2021-04-02] MEDS: oxybutynin chloride XL 5 MG TABLET 15 MG PO (08:37)
[2021-04-02] MEDS: pantoprazole DR 40 mg Tablet PO (08:38)
[2021-04-02] MEDS: venlafaxine ER (24HR) 75 mg Capsule PO ×3 (08:38→20:02)
[2021-04-02] MEDS: docusate sodium 100 mg Capsule PO ×2 (08:38→17:00)
[2021-04-02] MEDS: lacosamide 50 mg Tablet 150 MG PO ×2 (08:38→17:00)
--- NOTE | 2021-04-02 09:33 | PC.NURSE ---
HEMOVAC HEMOVAC REMOVED PER DR CONCEPCION NOTE - PT CARLA WELL - REMAINS UP IN CHAIR
[2021-04-02] MEDS: ascorbic acid 500 mg Tablet PO (10:23)
[2021-04-02] MEDS: nystatin cream 30 gm 1 APPLIC TOPICAL ×2 (10:23→17:07)
[2021-04-02 11:14] LABS: Glucose Point of Care 135 mg/dL (70-110)
[2021-04-02] MEDS: lactated ringers 1,000 ML 90 ML IV (16:59)
[2021-04-02 17:04] LABS: Glucose Point of Care 129 mg/dL (70-110)
--- NOTE | 2021-04-02 17:31 | P.PN_ITS ---
Subjective Subjective: Interval history: Bothered by some back pain today. Some paresthesia over the right thigh. Denies chest pain or trouble breathing. Vitals/I&O/Wt Last Vital Signs Temp 98.7 F 04/02/21 15:31 Pulse 82 04/02/21 15:31 Resp 19 H 04/02/21 15:31 BP 108/69 04/02/21 15:31 Pulse Ox 91 04/02/21 15:31 04/02/21 04/02/21 04/02/21 06:59 14:59 22:59 Intake Total 1530 / 1530 Output Total 730 / 2405 200 / 200 Balance -730 / 158.5 1330 / 1330 Physical Exam Const: COMMON NORMALS: no acute distress and alert GENERAL APPEARANCE: cooperative and comfortable NUTRITIONAL APPEARANCE: overweight ORIENTATION/CONSCIOUSNESS: Yes awake, Yes oriented to person and Yes oriented to place; not confused HENMT: COMMON NORMALS: oropharynx normal Neck/C-Spine: COMMON NORMALS: no meningeal signs and no JVD Resp: COMMON NORMALS: normal respiratory effort and clear to auscultation bilaterally AUSCULTATION: clear to auscultation bilaterally Cardio: COMMON NORMALS: no JVD, regular rhythm, S1 normal heart sound present, S2 normal heart sound present and No murmurs present (Cardio) RHYTHM: regular rhythm HEART SOUNDS: S1 normal heart sound present and S2 normal heart sound present GI: COMMON NORMALS: Normal to inspection, nondistended, normoactive bowel sounds present, Soft to palpation and non-tender PALPATION: Yes Soft to palpation Extremity: COMMON NORMALS: no joint enlargement and no pedal edema Neuro: COMMON NORMALS: moves all extremities SENSORIUM/ORIENTATION: Yes alert, Yes oriented to person, Yes oriented to place and Yes fluctuating sensorium MENINGEAL SIGNS: Yes no meningeal signs COORDINATION/BALANCE: [id number] test normal (although weak) SPEECH: abnormal speech (Possible mild aphasia) Details: garbled and slurred (mild) SENSORY EXAM: Yes Normal double simultaneous stimulation for sensation; No sensory level loss detected MOTOR EXAM: Pronator motor function not present (upper) COORDINATION: [id number]-sw-[id number] test normal (although weak) OTHER: Tracking. No visual field deficit. Skin: COMMON NORMALS: no rashes or lesions noted GENERAL SKIN EXAM: no rashes or lesions noted Urinary Catheter Management^: F: Cath Placed During This Visit: yes Reason for Continuing Indwelling Catheter: Required Immobilization for Trauma or Surgery or Anesthesia Urinary Catheter Date of Insertion: 03/31/21 Urinary Catheter Time of Insertion: 09:25 Data : 04/02/21 02:40 04/02/21 02:40 A&P Assessment and plan (1) Acute anemia: Discussed with her. Plan is to recheck hemoglobin. She is agreeable for pRBC transfusion if further decrease. Status: Acute (2) Acute encephalopathy: Resolved. Follow up MRI brain after discharge. Follow up with neurology to discuss results as well as for additional assessment of recent short-term memory loss. Her mental status is quite significantly improved. Acute encephalopathy appears to be resolved. Suspect was secondary to protracted recovery from anesthesia with superimposed delirium secondary to possibly mild underlying/developing dementia. She is awake, alert, not in any discomfort or distress. Does not remember much from yesterday. Infectious work-up was unrevealing including unremarkable chest x-ray. UA. She remains afebrile. Does have leukocytosis which is suspected stress related/postsurgical. CT angiogram head and neck performed yesterday was unremarkable. Today on examination she does not have any signs of hemineglect. Suspect this was related more to her confusion than any actual symptoms. She does, however, have possibly some mild aphasia, chronicity of which is unclear. She does confirm as her stated yesterday history of TIAs. We are continuing cardiac monitoring at this time. Discussed with her at some point if safe with neurosurgery may benefit from initiation of aspirin given history of TIA, as well as cholesterol medication. Discussed with her also may benefit from additional assessment by nonemergent MRI to give a better idea as to whether she may have had any CVA. We have not noted any seizure-like activity. Continue to monitor for now. Discussed with her also would benefit from follow-up with neurology with results of MRI, as well as for assessment of possible dementia with recent progressive short-term memory loss. PT OT. ST. Status: Acute (3) Essential hypertension: Blood pressure better after holding losartan. Status: Acute (4) Seizure disorder: Continue lacosamide. Monitor. Continue follow-up with neurology after discharge. Status: Acute (5) S/P spinal surgery: Status post [id number] PLIF on 03/31. Procedure itself uneventful. Monitor postoperatively. EBL 700 mL. Mobilize with PT. Status: Acute (6) History of short term memory loss: reports recently progressive short-term memory loss, not remembering dates, having trouble paying bills. Follow-up with neurology after discharge as discussed with for additional assessment of possible early dementia. Status: Acute (7) Diabetes: Monitor blood glucose. Insulin sliding scale. Status: Acute Additional A&P Information Hx TIA Hx pancreatitis Attempted to reach for update. Attestations Medical Necessity Statement*: Continue admission for assessment and management following lower back PLIF, acute anemia. Coding Level of Care Code Acute Hydrogen Plant Operator for g Fwd Diagnoses Acute anemia D64.9 Acute encephalopathy G93.40 Essential hypertension I10 Seizure disorder G40.909 S/P spinal surgery Z98.890 History of short term memory loss Z87.898 Diabetes E11.9
[2021-04-02 20:59] LABS: Glucose Point of Care 124 mg/dL (70-110)
[2021-04-03 03:15] VITALS: BP 106/66; PULSE 88; RESP 18; TEMP 37.2; O2SAT 94
[2021-04-03] MEDS: lactated ringers 1,000 ML 90 ML IV (05:00)
[2021-04-03] MEDS: acetaminophen 325 mg Tablet 650 MG PO (05:00)
[2021-04-03] MEDS: enoxaparin 40 mg/0.4 mL Syringe SUBCUT (05:01)
[2021-04-03 06:00] VITALS: PULSE 81
[2021-04-03 06:38] LABS: Basophils # 0.1 10^3/uL (0.0-0.1); Basophils % 0.5 %; Eosinophils # 0.2 10^3/uL (0.0-0.8); Eosinophils % 1.4 %; Hematocrit 22.2 % (37.0-47.0); Lymphocytes # 1.7 10^3/uL (0.8-4.8); Lymphocytes % 15.1 %; Mean Corpuscular HGB Conc 31.5 g/dL (30.0-36.0); Mean Corpuscular Hemoglobin 28.2 pg (28.0-34.0); Mean Corpuscular Volume 89.5 fL (81-99); Mean Platelet Volume 10.6 fL (7.4-10.4); Monocytes # 1.3 10^3/uL (0.2-0.9); Monocytes % 11.6 %; Neutrophils # 8.01 10^3/uL (1.8-7.7); Neutrophils % 70.8 %; Nucleated Red Blood Cells % 0 %; Platelet Count 204 10^3/cmm (130-400); Red Blood Count 2.48 10^6/uL (4.1-5.3); Red Cell Distribution Width 14.2 % (12.1-15.1); White Blood Count 11.3 10^3/uL (4.0-10.0)
[2021-04-03 06:47] LABS: Glucose Point of Care 111 mg/dL (70-110)
[2021-04-03 07:25] VITALS: BP 124/83; PULSE 85; RESP 16; TEMP 36.9; O2SAT 97
[2021-04-03] MEDS: ascorbic acid 500 mg Tablet PO (08:43)
[2021-04-03] MEDS: lacosamide 50 mg Tablet 150 MG PO (08:43)
[2021-04-03] MEDS: oxybutynin chloride XL 5 MG TABLET 15 MG PO (08:43)
[2021-04-03] MEDS: zinc gluconate 50 mg Tablet PO (08:43)
[2021-04-03] MEDS: metoprolol succinate ER (24 HR) 25 mg Tablet PO (08:43)
[2021-04-03] MEDS: predniSONE 20 mg Tablet PO (08:43)
[2021-04-03] MEDS: famotidine 20 mg Tablet 40 MG PO (08:43)
[2021-04-03] MEDS: pantoprazole DR 40 mg Tablet PO (08:43)
[2021-04-03] MEDS: docusate sodium 100 mg Capsule PO (08:43)
[2021-04-03] MEDS: venlafaxine ER (24HR) 75 mg Capsule PO (08:44)
[2021-04-03] MEDS: fluticasone nasal spray 16gm Btl 1 SPRAY INTRANASAL (08:44)
[2021-04-03] MEDS: nystatin cream 30 gm 1 APPLIC TOPICAL (08:44)
[2021-04-03 08:50] VITALS: RESP 16
[2021-04-03] MEDS: oxyCODONE-APAP 5-325 mg Tablet PO (08:50)
[2021-04-03 10:51] VITALS: BP 119/77; PULSE 78; RESP 16; TEMP 36.4; O2SAT 95
[2021-04-03 11:27] LABS: Glucose Point of Care 133 mg/dL (70-110)
--- NOTE | 2021-04-03 12:11 | P.PN_ITS ---
Subjective Subjective: Interval history: He says she is doing well today. She has no complaints. Some discomfort in her back, otherwise no further issues. Any numbness she had her left hand had entirely gone away. Denies chest pain or pressure. Denies trouble breathing. Vitals/I&O/Wt Last Vital Signs Temp 97.6 F 04/03/21 10:51 Pulse 78 04/03/21 10:51 Resp 16 04/03/21 10:51 BP 119/77 04/03/21 10:51 Pulse Ox 95 04/03/21 10:51 04/02/21 04/03/21 04/03/21 22:59 06:59 14:59 Intake Total 50 / 1580 1530 / 3110 240 / 240 Output Total 1999 / 2199 850 / 3050 850 / 850 Balance -1950 / -620 680 / 60 -610 / -610 Physical Exam Const: COMMON NORMALS: no acute distress and alert GENERAL APPEARANCE: cooperative and comfortable NUTRITIONAL APPEARANCE: overweight ORIENTATION/CONSCIOUSNESS: Yes awake; not confused HENMT: COMMON NORMALS: oropharynx normal Neck/C-Spine: COMMON NORMALS: no meningeal signs and no JVD Resp: COMMON NORMALS: normal respiratory effort and clear to auscultation bilaterally AUSCULTATION: clear to auscultation bilaterally Cardio: COMMON NORMALS: no JVD, regular rhythm, S1 normal heart sound present, S2 normal heart sound present and No murmurs present (Cardio) RHYTHM: regular rhythm HEART SOUNDS: S1 normal heart sound present and S2 normal heart sound present GI: COMMON NORMALS: Normal to inspection, nondistended, normoactive bowel s ounds present, Soft to palpation and non-tender PALPATION: Yes Soft to palpation Extremity: COMMON NORMALS: no joint enlargement and no pedal edema OTHER: C hronically shorter LLE Neuro: COMMON NORMALS: moves all extremities SENSORIUM/ORIENTATION: Yes alert and Yes fluctuating sensorium MENINGEAL SIGNS: Yes no meningeal signs COORDINATION/BALANCE: [id number] test normal SPEECH: abnormal speech (Possible mild aphasia) Details: garbled and slurred (mild) SENSORY EXAM: Yes Normal double simultaneous stimulation for sensation; No sensory level loss detected MOTOR EXAM: Pronator motor function not present (upper) COORDINATION: [id number] test normal OTHER: Tracking. No visual field deficit. Skin: COMMON NORMALS: no rashes or lesions noted GENERAL SKIN EXAM: no rashes or lesions noted Urinary Catheter Management^: F: Cath Placed During This Visit: yes, but has since been removed by the nurse Reason for Continuing Indwelling Catheter: Decision to DC Catheter Urinary Catheter Date of Insertion: 03/31/21 Urinary Catheter Time of Insertion: 09:25 Date Urinary Catheter Removed: 04/03/21 Time Urinary Catheter Discontinued: 11:59 Data : 04/03/21 06:00 04/02/21 02:40 A&P Assessment and plan (1) Acute anemia: She is doing well today. Hemoglobin without further decrease. Discussed with her borderline hemoglobin at 7, although has not dropped any further. No bleeding noted. Discussed with her consideration of transfusion in case there is additional decrease, or if having symptoms. We are requesting that hemoglobin be rechecked with home health visit. Please recheck also at next appointment. Status: Acute (2) Acute encephalopathy: Resolved. With reported history of TIA, possible TIA in the hospital, although suspect this was more acute encephalopathy secondary after surgery, anesthesia, possibly superimposed on early dementia with recently progressive short-term memory loss as per . Additional assessment requested by MRI brain after discharge. Due to possible TIA in the past, as well as on ASCVD risk she is started on sta tin. Once hemoglobin found without any further decrease on reassessment, please consider initiating and continuing low-dose aspirin. She is also asked to follow-up with neurology. Discussed w her and her and her . Follow up MRI brain after discharge. Follow up with neurology to discuss results as well as for additional assessment of recent short-term memory loss. Acute encephalopathy resolved. Suspect was secondary to protracted recovery from anesthesia with superimposed delirium secondary to possibly mild underlying/developing dementia. She is awake, alert, not in any discomfort or distress. Does not remember much from yesterday. Infectious work-up was unrevealing including unremarkable chest x-ray. UA unremarkable. She remains afebrile. Does have leukocytosis which is suspected stress related/postsurgical. CT angiogram head and neck performed 04/01 was unremarkable. No signs of hemineglect. Suspect this was related more to her confusion than any actual symptoms. No sign of any aphasia. She does confirm as her stated yesterday history of TIAs. We have not noted any seizure-like activity. Continue to monitor for now. Discussed with her also would benefit from follow-up with neurology with results of MRI, as well as for assessment of possible dementia with recent progressive short-term memory loss. PT OT. ST. Status: Acute (3) Essential hypertension: Blood pressure better after holding losartan. Blood pressure somewhat on the soft side, oxygen hold losartan for now. Status: Acute (4) Seizure disorder: Continue lacosamide. Monitor. Continue follow-up with neurology after discharge. Status: Acute (5) S/P spinal surgery: Status post [id number] PLIF on 03/31. Procedure itself uneventful. Monitor postoperatively. EBL 700 mL. Mobilize with PT. FARTUN ashford. Follow-up with orthopedics. Status: Acute (6) History of short term memory loss: reports recently progressive short-term memory loss, not remembering dates, having trouble paying bills. Follow-up with neurology after discharge as discussed with for additional assessment of possible early dementia. Status: Acute (7) Diabetes: Monitor blood glucose. Insulin sliding scale. Status: Acute Additional A&P Information Hx TIA Hx pancreatitis Attestations Medical Necessity Statement*: Returning home with outpatient follow-up. Coding Level of Care Code Acute Cylinder Devalver for g Fwd Exam Comprehensive Diagnoses Acute anemia D64.9 Acute encephalopathy G93.40 Essential hypertension I10 Seizure disorder G40.909 S/P spinal surgery Z98.890 History of short term memory loss Z87.898 Diabetes E11.9
--- NOTE | 2021-04-03 13:54 | PC.SOCIAL ---
Pg 2 IMM. Explained to pt Pg 2 IMM. No questions voiced. Provided pt a copy. Initialed, dated, & timed a copy & placed in chart.
[2021-04-03 14:35] VITALS: BP 119/77; PULSE 78; RESP 16; TEMP 36.4; O2SAT 95
--- NOTE | 2021-04-07 11:18 | P.DS_ITS ---
Discharge Providers Date of Admission: 03/31/21 15:34 Date of Discharge: April 02, 2021 Attending Provider at Admission: Pedrito Murphy DO Attending Provider at Discharge: Pedrito Murphy DO Primary Care Provider: Kendra Dixon MD Diagnoses at Discharge Discharge Diagnosis (1) Acute anemia: Status: Acute (2) Acute encephalopathy: Status: Acute (3) Essential hypertension: Status: Acute (4) Seizure disorder: Status: Acute (5) S/P spinal surgery: Status: Acute (6) History of short term memory loss: Status: Acute (7) Diabetes: Status: Acute Reason for Visit Reason for Visit: t10 to pelvis PLIF L3/4 L4/5 L5S1 91365, 48178, 63 Hospital Course Hospital Course Patient's hospital course was uneventful. She worked physical therapy on postop day 1 and was discharged on postop day #2. Physical Exam Urinary Catheter Management^: F: Cath Placed During This Visit: yes, but has since been removed by the nurse Reason for Continuing Indwelling Catheter: Decision to DC Catheter Urinary Catheter Date of Insertion: 03/31/21 Urinary Catheter Time of Insertion: 09:25 Date Urinary Catheter Removed: 04/03/21 Time Urinary Catheter Discontinued: 11:59 Discharge Data Data Completed and Pending: Completed Studies During Hospitalization Category Date Time Status CT angio headneck * [id number] Stat Cat Scan 03/31/21 19:[address] head wo con* 7 0450 Stat Cat Scan 03/31/21 18:28 Completed XR chest 1V wendy ble [id number] Routine Exams 03/31/21 19:42 Completed XR lumbar spine 1 V [id number] Routine Exams 03/31/21 Completed Vitals: Last Vital Signs Temp 97.6 F 04/03/21 14:35 Pulse 78 04/03/21 14:35 Resp 16 04/03/21 14:35 BP 119/77 04/03/21 14:35 Pulse Ox 95 04/03/21 14:35 Discharge Plan Discharge Patient Disposition: Home Condition: Stable Prescriptions: New hydrocodone-acetaminophen 5-325 mg tablet 1 - 2 tab PO .Q4-6H Qty: 40 RF: 0 atorvastatin 20 mg tablet 20 mg PO QPM Qty: 30 RF: 0 oxycodone-acetaminophen 5-325 mg Tablet 1 - 2 tab PO Q4H PRN (Reason: Moderate To Severe Pain) 7 Days Qty: 40 RF: 0 Continued fluticasone propionate 50 mcg/actuation spray,suspension 1 spray INTRANASAL .prn RF: 0 metoprolol succinate 25 mg tablet extended release 24 hr 25 mg PO BID RF: 0 Vimpat 150 mg tablet 150 mg PO BID Qty: 180 RF: 3 venlafaxine 75 mg capsule,extended release 24hr 75 mg PO TID Qty: 270 RF: 3 zinc 50 mg tablet 50 mg PO DAILY RF: 0 ascorbate calcium (vitamin C) 500 mg tablet 500 mg PO DAILY RF: 0 cholecalciferol (vitamin D3) 350 mcg (14,000 unit) capsule 1 unit PO DAILY RF: 0 Creon 3,000-9,500- 15,000 unit capsule,delayed release(DR/EC) 2 cap PO TID RF: 0 oxybutynin chloride 15 mg tablet extended release 24 hr 15 mg PO DAILY Qty: 30 RF: 4 prednisone 20 mg tablet 20 mg PO DAILY Qty: 15 RF: 0 diclofenac sodium 1 % gel 2 g TOPICAL QID PRN (Reason: left knee pain) Qty: 100 RF: 3 nystatin 100,000 unit/gram cream 1 applic topical BID Qty: 30 RF: 1 famotidine 40 mg tablet See Rx Instructions .ROUTE .COMPLEX Qty: 90 RF: 1 (DME) E0748 Bone Growth Stimulator See Rx Instructions .Route .MEDSUPPLY Qty: 1 RF: 0 pantoprazole 40 mg tablet,delayed release (DR/EC) 40 mg PO DAILY RF: 0 Held losartan 25 mg tablet See Rx Instructions .ROUTE .COMPLEX Qty: 180 RF: 3 Hold Instructions: Resume on 04/10/21. Discharge Orders: Discharge Order (Routine); Ordered 04/03/21 Ordered By: Pedrito Murphy Other Ambulatory Orders: MR head wo/w con [id number] (Routine) Timeframe: 3 Days Facility: [facility] [place] - Location: Radiology [facility] Ordered By: Basim Gorman DME: Henrry (Order) Location: None Selected Ordered By: Pedrito Murphy Referrals: [facility] [Outside] ([facility] has accepted you to their services. Lissa states that they will be out to see you on Wednesday. If you have any questions please call them at [phone].) Zuleika Bill MD [Physician] - 04/09/21 1:15 pm (TIA, progressive short term memory problems) Pedrito Murphy DO [Physician] - 04/15/21 9:15 am Kendra Dixon MD [Primary Care Provider] - 04/10/21 10:20 am Discharge Diet: Advance as tolerated Discharge Activity: Limit activity as instructed Patient Instructions: Hydrocodone/Acetaminophen (By mouth), Lumbar Spinal Fusion (GEN), Opioid Safety Activity Restrictions/Additional Instructions: Thank you for [facility] for your care! The following is a list of instructions, from your provider, to follow upon your discharge to ensure you have the optimal recovery from your recent injury orsurgery. Follow-up care is a wallace part of your treatment and safety. Be sure to make and go to all appointments, and call your doctor if you are having problems. If you do not already have a follow-up appointment made, call Dr. murphy office in the next 1-3 days to make follow up appointment for 1 weeks at [phone]. It is also a good idea to know your test results and keep a list of the medicines you take. Medications will be prescribed for you at your provider's discretion. These medications are to be used as instructed; if they are taken more often that prescribed they will not be refilled early and in most cases will not be refilled at all. > When a refill is needed,you should contact estefany tsang 2-3 business days before your prescription runs out. Medications will NOT be refilled by mrp controller providers after hours! > Many pain medications contain Tylenol (Acetaminophen). Do not consume more than 4,000 mg of Tylenol per day in total with any combination ofmedications. > Pain medications can cause constipation. Please use an over the counter stool softener as directed, while taking pain medications. Consulty our local pharmacist with questions or recommendations on stool softeners. If constipation persists, contact our office or your primary care provider. > While under our care,you are not to receive pain medications or other controlled substances from any other provider unless our office is notified and approves. Any attempts to do so will result in refusal to prescribe any further pain medications and possible dismissal from our practice. ? Keep dressing on until seen in clinic ? Showering is permitted, however we ask that you do not take a bath, sit in a whirlpool / Jacuzzi, or go swimming for 1 month. For only the first 2 days after surgery, lt wilt be necessary for you to cover your wound/dressing with plastic and tape to keep it dry. ? Walking is essential for the healing process after surgery. We would like you to slowly advance your walking. This should be done on relatively flat clear ground (inside or out) or can be done on a treadmill. Remember this goal does not have to happen all at once, slowly increase your distance and duration. This can be broken into more more than one walk per day as tolerated. Patients who walk as directed after surgery rarely require Physical Therapy. In the unlikely event this issue arises your provider will direct hospital staff to make the appropriate arrangements. ? No lifting over 5 pounds {a gallon of milk) or bending/twisting until further notice. Each of these activities places an unnecessary amount of stress onto the body and can impede the delicate healing process. > Instead of bending at the waist, keep your back straight and bend at the knees. > Instead of twisting your torso, keep your back straight and turn your entire body with your feet. ? You may sleep in any position which makes you comfortable. Many patients find comfort sleeping in a reclining chair. It is not abnormal to have difficulty sleeping for the first several weeks following your surgery. We recommend trying Benadry! or Tylenol PM as directed to help with your sleeping difficulties. Both medications are over the counter and available withoutprescription. ? NO SMOKING!!! Smoking dramatically increases the probability of developing postoperative wound infections. ? Common complaints after lumbar and/or thoracic spine surgery include, but are not limited to: numbness and/or tingling in the legs, pain around the incision and surrounding tissues, muscle spasms, or stiffness of the middle to low back. Contact our office if these symptoms persist or if an acute change occurs. ? No driving for the first 3-5days, and not while taking narcotics [] until seen at your follow-up appointment and cleared. There are no restrictions for riding on short trips, however if you take a longer trip, arrangements should be made to make regular stops to get out of the vehicle and stretch . ? Swelling is an unfortunate event that will take place with any surgery and is the primary source of your postoperative discomfort. While walking and regular approved activities helps control inflammation, there are additional steps you can take to minimizeswelling. > Place ice over the surgical site and surrounding tissue for twenty minutes, followed by applying a low/medium heat (heating pad) for an additional twenty minutes every 1-2 hours as needed for painrelief. > You may use of over the counter anti-inflammatory medications (Ibuprofen, Motrin, Aleve, Advil, etc) as directed on the package label. These types of medicines wm significantly reduce the amount of discomfort you experience after surgery from swelling. It should be noted that if you have and allergy to any of these medications, or a history of ulcers or kidney disease you should consult you primary care provider prior to starting these medications. Please note due to risk of stroke you are started on cholesterol medication. He would also benefit from long-term low-dose aspirin therapy, however, please discuss starting this with your primary doctor once her blood count is found stable on reassessment at next visit. We are requesting to follow-up your blood count with home health. Please have your primary doctor and/your orthopedic doctor follow-up your blood counts at the next appointment. Please follow-up with neurology with regards to history of TIA, possible TIA while in the hospital. Discussed also recent progression of short-term memory loss. Discharge Attestations Time Spent in Discharge Care*: less than 30 min Quality Metrics Clinical Quality Measures During this hospital stay, did patient experience: None Coding Level of Care Code Acute g FW DC note Diagnoses Acute anemia D64.9 Acute encephalopathy G93.40 Essential hypertension I10 Seizure disorder G40.909 S/P spinal surgery Z98.890 History of short term memory loss Z87.898 Diabetes E11.9
== END 2021-04-03 14:00 | disposition home health service (06) | DRG 453 ==
LOC: MEDSURG 15:45
PROVIDERS: Internal Medicine; Admitting Provider Orthopaedic Surgery; PCP Family Medicine; Visit Provider Orthopaedic Surgery
PROC: 0SG30AJ Fusion of Lumbosacral Joint with Interbody Fusion Device, Posterior Approach, Anterior Column, Open Approach (ICD-10-PCS; CPT 22612; principal; 2021-03-31 08:30)
DX: M41.86 Other forms of scoliosis, lumbar region (principal); G92 Toxic encephalopathy; F05 Delirium due to known physiological condition; M48.061 Spinal stenosis, lumbar region without neurogenic claudication; T41.205A Adverse effect of unspecified general anesthetics, initial encounter; D64.9 Anemia, unspecified; I10 Essential (primary) hypertension; G40.909 Epilepsy, unspecified, not intractable, without status epilepticus; E11.9 Type 2 diabetes mellitus without complications; R41.3 Other amnesia; N39.41 Urge incontinence; N39.44 Nocturnal enuresis; B36.9 Superficial mycosis, unspecified; Z87.891 Personal history of nicotine dependence; Z86.73 Personal history of transient ischemic attack (TIA), and cerebral infarction without residual deficits; Z87.19 Personal history of other diseases of the digestive system
CPT/HCPCS: 36415; 36416; 51702; 70450; 70496; 70498; 71045; 72020; 76000; 80048; 80053; 81001; 82962; 85025; 86850; 86900; 92523; 96372; 97116; 97162; 97166; 97530; 97535; A9281; C1713; C9359; J0690; J1100; J1170; J1644; J1650; J1815; J1885; J2250; J2270; J2370; J2405; J2704; J2710; J3010; J3370; J3490; J7030; J7512; Q9967

== ENCOUNTER 2021-04-14 17:06 | Outpatient (CLI) | payer MEDICARE, OTHER, SELFPAY ==
[2021-04-14 17:48] LABS: Glucose Urine UA Norm (Normal); Protein Urine Neg (Negative); Urine Appearance Clear (CLEAR); Urine Color Yellow (Yellow); pH Urine 5 (5-7)
[2021-04-14 17:49] LABS: Add Urine Microscopic? YES; Bacteria Urine TRACE /hpf; Bilirubin Urine Neg (Negative); Blood Urine Trace (Negative); Ketones Urine Negative (Negative); Leukocyte Esterase Urine 2+ (Negative); Mucus Urine 1+ /hpf; Nitrate Urine Negative (Negative); RBC Urine RARE /hpf (0-2); Squamous Epithelial Cell Urine 0-4 /hpf (0-5); Urobilinogen Urine Norm (Negative)
[2021-04-14 17:51] LABS: Add Urine Culture? Yes; WBC Urine 55-80 /hpf (0-5)
== END 2021-04-14 17:07 | disposition home or self-care (01) ==
PROVIDERS: PCP Family Medicine; Visit Provider Family Medicine
DX: N39.0 Urinary tract infection, site not specified (principal)
CPT/HCPCS: 81001; 87086

== ENCOUNTER → 2021-04-30 16:43 | Outpatient (BNVA) | payer MEDICARE, OTHER, SELFPAY | PROVIDERS: PCP Family Medicine; Visit Provider Family Medicine | DX: R30.0 Dysuria (principal) | CPT/HCPCS: 81003; 87077; 87086; 87184 ==

== ENCOUNTER → 2021-05-07 11:02 | Outpatient (BNVA) | payer MEDICARE, OTHER, SELFPAY | PROVIDERS: PCP Family Medicine; Visit Provider Specialist | DX: G40.219 Localization-related (focal) (partial) symptomatic epilepsy and epileptic syndromes with complex partial seizures, intractable, without status epilepticus (principal); G93.40 Encephalopathy, unspecified | CPT/HCPCS: 96116; 99215 ==

== ENCOUNTER → 2021-05-15 13:36 | Outpatient (BNVA) | payer MEDICARE, OTHER, SELFPAY | PROVIDERS: PCP Family Medicine; Visit Provider Orthopaedic Surgery | DX: M54.5 Low back pain (principal); M48.061 Spinal stenosis, lumbar region without neurogenic claudication; M41.9 Scoliosis, unspecified; Z48.89 Encounter for other specified surgical aftercare | CPT/HCPCS: 72100 ==

== ENCOUNTER → 2021-06-10 10:02 | Outpatient (BNVA) | payer MEDICARE, OTHER, SELFPAY | PROVIDERS: PCP Family Medicine; Visit Provider Specialist | DX: G40.909 Epilepsy, unspecified, not intractable, without status epilepticus (principal); Z87.891 Personal history of nicotine dependence | CPT/HCPCS: 95816 ==

== ENCOUNTER → 2021-06-24 09:53 | Outpatient (BNVA) | payer MEDICARE, OTHER, SELFPAY | PROVIDERS: PCP Family Medicine; Visit Provider Orthopaedic Surgery | DX: M54.50 Low back pain, unspecified (principal); M48.061 Spinal stenosis, lumbar region without neurogenic claudication; M41.9 Scoliosis, unspecified; Z48.89 Encounter for other specified surgical aftercare | CPT/HCPCS: 72100 ==

== ENCOUNTER → 2021-08-21 11:12 | Outpatient (BNVA) | payer MEDICARE, OTHER, SELFPAY | PROVIDERS: PCP Family Medicine; Visit Provider Physician Assistant | DX: Z48.89 Encounter for other specified surgical aftercare (principal) | CPT/HCPCS: 72100 ==

== ENCOUNTER → 2021-09-02 09:28 | Outpatient (BNVA) | payer MEDICARE, OTHER, SELFPAY | PROVIDERS: PCP Family Medicine; Visit Provider Specialist | DX: G40.909 Epilepsy, unspecified, not intractable, without status epilepticus (principal); G43.909 Migraine, unspecified, not intractable, without status migrainosus; Z87.891 Personal history of nicotine dependence | CPT/HCPCS: 99213; 99214 ==

== ENCOUNTER → 2021-09-10 15:33 | Outpatient (BNVA) | payer MEDICARE, OTHER, SELFPAY | PROVIDERS: PCP Family Medicine; Visit Provider Family Medicine | DX: Z20.822 Contact with and (suspected) exposure to COVID-19 (principal) | CPT/HCPCS: 87635 ==

== ENCOUNTER → 2021-10-27 15:04 | Outpatient (BNVA) | payer MEDICARE, OTHER, SELFPAY | PROVIDERS: PCP Family Medicine; Visit Provider Urology | DX: N39.0 Urinary tract infection, site not specified (principal) | CPT/HCPCS: 81003 ==

== ENCOUNTER → 2021-11-27 09:03 | Outpatient (BNVA) | payer MEDICARE, OTHER, SELFPAY | PROVIDERS: PCP Family Medicine; Visit Provider Orthopaedic Surgery | DX: M54.50 Low back pain, unspecified (principal) | CPT/HCPCS: 72110 ==

== ENCOUNTER 2021-12-02 06:00 | Outpatient (RCR) | payer MEDICARE, OTHER, SELFPAY | END 2021-12-11 23:59 | disposition home or self-care (01) | LOC: TPT 06:00 | PROVIDERS: PCP Family Medicine; Referring Provider Orthopaedic Surgery; Visit Provider Orthopaedic Surgery | DX: M54.50 Low back pain, unspecified (principal); Z98.890 Other specified postprocedural states | CPT/HCPCS: 97110; 97163 ==

== ENCOUNTER → 2021-12-11 15:38 | Outpatient (BNVA) | payer MEDICARE, OTHER, SELFPAY | PROVIDERS: PCP Family Medicine; Visit Provider Nurse Practitioner Family | DX: M79.672 Pain in left foot (principal) | CPT/HCPCS: 73630; 80053; 80061; 82306; 82607; 83036; 83735; 84443; 85025 ==

== ENCOUNTER 2021-12-12 06:00 | Outpatient (RCR) | payer MEDICARE, OTHER, SELFPAY | END 2022-01-10 23:59 | disposition home or self-care (01) | LOC: TPT 06:00 | PROVIDERS: PCP Family Medicine; Referring Provider Orthopaedic Surgery; Visit Provider Orthopaedic Surgery | DX: M54.50 Low back pain, unspecified (principal); Z98.890 Other specified postprocedural states | CPT/HCPCS: 97032; 97110 ==

== ENCOUNTER → 2021-12-17 14:23 | Outpatient (BNVA) | payer MEDICARE, OTHER, SELFPAY | PROVIDERS: PCP Family Medicine; Visit Provider Orthopaedic Surgery | DX: M17.12 Unilateral primary osteoarthritis, left knee (principal); Z87.891 Personal history of nicotine dependence | CPT/HCPCS: 20610; 73560; 73565; 99213; J0702; J3490 ==

== ENCOUNTER → 2022-01-02 10:09 | Outpatient (BNVA) | payer OTHER, MEDICARE, SELFPAY | PROVIDERS: PCP Family Medicine; Visit Provider Nurse Practitioner Family | DX: N39.0 Urinary tract infection, site not specified (principal); Z87.898 Personal history of other specified conditions; N39.41 Urge incontinence | CPT/HCPCS: 81003 ==

== ENCOUNTER → 2022-02-26 10:24 | Outpatient (BNVA) | payer MEDICARE, OTHER, SELFPAY | PROVIDERS: PCP Family Medicine; Visit Provider Orthopaedic Surgery | DX: Z47.89 Encounter for other orthopedic aftercare (principal); Z98.890 Other specified postprocedural states; Z98.1 Arthrodesis status; M54.9 Dorsalgia, unspecified | CPT/HCPCS: 72100; 99213 ==

== ENCOUNTER → 2022-05-26 10:34 | Outpatient (BNVA) | payer MEDICARE, OTHER, SELFPAY | PROVIDERS: PCP Family Medicine; Visit Provider Orthopaedic Surgery | DX: M16.11 Unilateral primary osteoarthritis, right hip (principal); Z98.1 Arthrodesis status; M85.88 Other specified disorders of bone density and structure, other site | CPT/HCPCS: 72100; 73502; 99213; 99214 ==

== ENCOUNTER → 2022-06-08 08:24 | Outpatient (BNVA) | payer MEDICARE, OTHER, SELFPAY | PROVIDERS: PCP Family Medicine; Referring Provider Orthopaedic Surgery; Visit Provider Student in an Organized Health Care Education/Training Program | DX: M16.11 Unilateral primary osteoarthritis, right hip (principal); M70.61 Trochanteric bursitis, right hip; Z98.1 Arthrodesis status | CPT/HCPCS: 99214 ==

== ENCOUNTER 2022-08-03 19:17 | Emergency (ER) | payer MEDICARE, OTHER, SELFPAY ==
[2022-08-03 19:18] VITALS: BP 155/76; PULSE 65; RESP 18; TEMP 36.6; O2SAT 98; BMI 30.2
--- NOTE | 2022-08-03 19:27 | CTR_ITS ---
PROCEDURE INFORMATION: Exam: CT Head Without Contrast Exam date and time: 08/03/2022 9:16 PM Age: 71 years old Clinical indication: Injury or trauma; Fall; Blunt trauma (contusions or hematomas) and laceration; Without residual foreign body; Forehead; Patient HX: Struck head on a dresser at home. C/O DUNAWAY with dizziness. Lac to left eyebrow. ; Additional info: Fal injury TECHNIQUE: Imaging protocol: Computed tomography of the head without contrast. Radiation optimization: All CT scans at this facility use at least one of these dose optimization techniques: automated exposure control; mA and/or kV adjustment per patient size (includes targeted exams where dose is matched to clinical indication); or iterative reconstruction. COMPARISON: CT head wo con* [id number] 03/31/2021 6:42 PM RADIATION DOSE METRICS: Total DLP (mGy-cm): 1109.18 FINDINGS: Brain: Unremarkable for age. No hemorrhage. Unremarkable white matter. No mass effect. Cerebral ventricles: No ventriculomegaly. Paranasal sinuses: Visualized sinuses are unremarkable. No fluid levels. Mastoid air cells: Visualized mastoid air cells are well aerated. Bones/joints: Unremarkable. No acute fracture. Soft tissues: Unremarkable. CT/CT head wo con* [id number] IMPRESSION: No acute intracranial abnormality.
--- NOTE | 2022-08-03 19:27 | XRR_ITS ---
PROCEDURE INFORMATION: Exam: XR Left Elbow Exam date and time: 08/03/2022 7:45 PM Age: 71 years old Clinical indication: Pain; Elbow; Left; Additional info: Fall injury TECHNIQUE: Imaging protocol: Radiologic exam of the Left elbow. Views: 3 or more views. COMPARISON: No relevant prior studies available. FINDINGS: Bones/joints: Normal. Soft tissues: Normal. XR/XR elbow LT min 3V* [id number] IMPRESSION: No acute findings.
--- NOTE | 2022-08-03 19:28 | XRR_ITS ---
PROCEDURE INFORMATION: Exam: XR Lumbosacral Spine Exam date and time: 08/03/2022 7:45 PM Age: 71 years old Clinical indication: Low back pain; Prior surgery; Surgery date: 6+ months; Additional info: Fall injury. Right lateral l-spine TECHNIQUE: Imaging protocol: Radiologic exam of the lumbosacral spine. Views: 2 or 3 views. COMPARISON: CR XR hip RT 2-3V wo/w pel* [id number] 05/26/2022 10:55 AM FINDINGS: Bones/joints: Multilevel fusion throughout lower thoracic spine and, lumbar spine and upper sacral spine without evidence complication. Unremarkable lumbar spine alignment. There is mild severity anterior vertebral body wedging at T11 of unknown age. The intervertebral disc prosthesis at L5-S1 is positioned more posterior than at other levels with the posterior aspect of the prosthesis protruding to some degree into the spinal canal. This may be increased from comparison. Soft tissues: Unremarkable. Intraperitoneal space: Right upper quadrant surgical clips. XR/XR lumbar spine 2-3V* [id number] IMPRESSION: 1. There is some posterior displacement of the L5-S1 intervertebral disc prosthesis partially within the lumbar spinal canal which seems somewhat more pronounced than comparison imaging. Loosening, symptomatic device cannot be excluded. 2. Pre-existing T11 compression fracture. 3. No acute lumbar spine fracture.
--- NOTE | 2022-08-03 20:12 | W.ED.FALL ---
HPI - Fall General: Chief Complaint: Fall Stated Complaint: fall, head lac, left arm pain Time Seen by Provider: 08/03/22 20:11 History of Present Illness: 71-year-old female comes in today with complaints of trip and fall. Patient reports that she was walking to her bedroom when she tripped over her loose slippers falling forward and hitting her elbow and left eyebrow against a dresser. Patient denied any loss of consciousness. Patient reports elbow pain and pain at the site of laceration to the eyebrow. Patient appears nontoxic. Patient appears in no acute distress. Review of Systems General: Reports: 10 or more systems reviewed and unremarkable except in HPI and below ENMT: Denies: throat pain Resp: Denies: dyspnea GI: Denies: nausea or vomiting Musc: Denies: back pain Skin/Breast: Denies: rash PFSH ED PFSH: Medical History (Updated 08/03/22 @ 21:36 by KATE Alvarado) Degenerative joint disease of right hip Diabetes FH: total abdominal hysterectomy and bilateral salpingo-oophorectomy H/O chronic pancreatitis Hyperlipidemia Nocturnal and diurnal enuresis Polyuria Recurrent UTI Seizure disorder TIA (transient ischemic attack) Trochanteric bursitis, right hip Urgency incontinence Vaginal voiding Surgical History H/O arthroscopic knee surgery H/O breast biopsy H/O cataract extraction H/O shoulder surgery History of back surgery S/P inguinal hernia repair Family History Mother , at age 72 Hypertension Cancer Pancreatic Family/Other Diabetes Stroke Father , at age 90 Cancer Esophageal Brother Cancer Hodgkin's lymphoma Social History Smoking and tobacco status: former smoker (1991) Quit status (tobacco): has quit using tobacco Year quit tobacco: 1989 Alcohol intake: never Marital status: Current occupational status: retired History of recent travel: No Physical Exam Const: COMMON NORMALS: alert HENMT: COMMON NORMALS: normocephalic HEAD & SCALP: normocephalic and laceration (Left outer eyebrow) Neck/C-Spine: COMMON NORMALS: full ROM CERVICAL SPINE: No Cervical spine tenderness Resp: COMMON NORMALS: normal respiratory effort and clear to auscultation bilaterally AUSCULTATION: clear to auscultation bilaterally Cardio: COMMON NORMALS: regular rate and regular rhythm RATE: regular rate RHYTHM: regular rhythm GI: COMMON NORMALS: Soft to palpation PALPATION: Yes Soft to palpation Back/Pelvis: LUMBAR SPINE/LOWER BACK: Yes paraspinal muscle tenderness Extremity: LEFT UPPER EXTREMITY: Yes elbow joint (Posterior tenderness) Left elbow: Yes inspection, Yes palpation and Yes ROM Neuro: SENSORIUM/ORIENTATION: Yes alert Skin: TRAUMA: laceration (3 cm left outer eyebrow) linear Procedures Laceration Laceration 1: Site: face (Lateral left eyebrow) Side (If applicable): left Size (cm): 3 Description: linear Depth: simple, single layer Pre-repair: wound explored and irrigated extensively Skin layer closed with: other (Skin adhesive) Course Vital Signs: Vital signs: Vital Signs Temperature 97.9 F 08/03/22 19:18 Pulse Rate 65 08/03/22 19:18 Respiratory Rate 18 08/03/22 19:18 Blood Pressure 155/76 08/03/22 19:18 Pulse Oximetry 98 08/03/22 19:18 Oxygen Delivery Me thod 08/03/22 19:18 MDM - Fall Medical Decision Making 71-year-old female comes in today with injury secondary from fall after tripping at home. On exam patient is alert and oriented responding appropriately to questions. Patient has tenderness in the left lateral eyebrow at site of a laceration that is approximately 3 cm long. Patient has posterior tenderness to the left elbow, normal range of motion of the elbow, distal pulses and sensation are intact. Patient has some paraspinous muscle tenderness in the lumbar spine. Differential diagnosis includes but not limited to fracture, laceration of the face, intracranial bleeding, dislocation. X-ray of the elbow showed no acute findings, x-ray of the lumbar spine noted a possible change in position of a L5-S1 prosthesis. Reviewed abnormal x-ray of the spine with Dr. Jurado who recommended patient follow-up with Dr. Brito her orthopedic spinal specialist. Patient has no significant abnormalities in neuro exam to suggest cauda equina syndrome or significance for the abnormality on the x-ray. This was reviewed with patient who agreed to plan. CT of the head did not note any fracture or intracranial bleeding. Lab Data Radiology Impressions Elbow X-Ray 08/03/22 19:27 IMPRESSION: No acute findings. Head CT 08/03/22 19:27 IMPRESSION: No acute intracranial abnormality. Lumbar Spine X-Ray 08/03/22 19:28 IMPRESSION: 1. There is some posterior displacement of the L5-S1 intervertebral disc prosthesis partially within the lumbar spinal canal which seems somewhat more pronounced than comparison imaging. Loosening, symptomatic device cannot be excluded. 2. Pre-existing T11 compression fracture. 3. No acute lumbar spine fracture. Discharge Plan Discharge Patient Disposition: Home Clinical Impression: Fall from slip, trip, or stumble Qualifiers: Encounter type: initial encounter Qualified Code(s): W01.0XXA - Fall on same level from slipping, tripping and stumbling without subsequent striking against object, initial encounter Laceration of brow without complication Qualifiers: Encounter type: initial encounter Qualified Code(s): S01.81XA - Laceration without foreign body of other part of head, initial encounter Contusion of elbow, left Qualifiers: Encounter type: initial encounter Qualified Code(s): S50.02XA - Contusion of left elbow, initial encounter Condition: Stable Prescriptions: No Action fluticasone propionate 50 mcg/actuation spray,suspension 1 spray INTRANASAL .prn venlafaxine 75 mg capsule,extended release 24hr See Rx Instructions .ROUTE .COMPLEX Dose Instruction: TAKE ONE CAPSULE BY MOUTH THREE TIMES DAILY Rx Instructions: TAKE ONE CAPSULE BY MOUTH DAILY sulfamethoxazole-trimethoprim [Bactrim DS] 800-160 mg tablet 1 tab PO BID Qty: 60 3RF (DME) Shoe Lift See Rx Instructions .Route .MEDSUPPLY Qty: 1 0RF Rx Instructions: As directed zinc 50 mg tablet 50 mg PO DAILY ascorbate calcium (vitamin C) 500 mg tablet 500 mg PO DAILY cholecalciferol (vitamin D3) 350 mcg (14,000 unit) capsule 1 unit PO DAILY tramadol 50 mg tablet 50 mg PO Q6H PRN (Reason: pain) 7 Days Qty: 40 0RF atorvastatin 20 mg tablet See Rx Instructions .ROUTE .COMPLEX Qty: 90 1RF Dose Instruction: TAKE ONE TABLET BY MOUTH EVERY EVENING Rx Instructions: TAKE ONE TABLET BY MOUTH EVERY EVENING oxycodone 5 mg tablet 5 - 10 mg PO Q4H PRN (Reason: pain) 30 Days Qty: 40 0RF cyclobenzaprine 5 mg tablet 5 mg PO TID PRN (Reason: muscle spasm) Qty: 60 0RF losartan 25 mg tablet See Rx Instructions .ROUTE .COMPLEX Qty: 180 3RF Hold Instructions: Resume on 04/10/21. Dose Instruction: TAKE TWO TABLETS BY MOUTH DAILY Rx Instructions: TAKE TWO TABLETS BY MOUTH DAILY oxybutynin chloride 15 mg tablet extended release 24 hr See Rx Instructions .ROUTE .COMPLEX Qty: 90 3RF Dose Instruction: TAKE ONE TABLET BY MOUTH EVERY DAY Rx Instructions: TAKE ONE TABLET BY MOUTH EVERY DAY lacosamide 200 mg tablet 200 mg PO BID 30 Days Qty: 60 3RF pantoprazole 40 mg tablet,delayed release (DR/EC) See Rx Instructions .ROUTE .COMPLEX Qty: 90 5RF Dose Instruction: TAKE ONE TABLET BY MOUTH EVERY DAY Rx Instructions: TAKE ONE TABLET BY MOUTH EVERY DAY hydrocodone-acetaminophen 5-325 mg tablet 1 tab PO Q6H PRN (Reason: pain) 7 Days Qty: 30 0RF oxycodone 5 mg tablet 5 mg PO Q4H PRN (Reason: pain) 7 Days Qty: 40 0RF famotidine 40 mg tablet See Rx Instructions .ROUTE .COMPLEX Qty: 90 1RF Dose Instruction: TAKE ONE TABLET BY MOUTH EVERY DAY Rx Instructions: TAKE ONE TABLET BY MOUTH EVERY DAY metoprolol succinate 25 mg tablet extended release 24 hr See Rx Instructions .ROUTE .COMPLEX Qty: 180 1RF Dose Instruction: TAKE ONE TABLET BY MOUTH TWICE DAILY Rx Instructions: TAKE ONE TABLET BY MOUTH TWICE DAILY Creon 24,000-76,000 -120,000 unit capsule,delayed release(DR/EC) See Rx Instructions .ROUTE .COMPLEX Qty: 250 1RF Dose Instruction: TAKE TWO CAPSULES BY MOUTH THREE TIMES DAILY with meals/and OR snacks Rx Instructions: TAKE TWO CAPSULES BY MOUTH THREE TIMES DAILY with meals/and OR snacks trazodone 100 mg tablet See Rx Instructions .ROUTE .COMPLEX 30 Days Qty: 45 1RF Dose Instruction: TAKE 1 AND 1/2 TABLETS BY MOUTH EVERY DAY Rx Instructions: TAKE 1 AND 1/2 TABLETS BY MOUTH EVERY DAY Discharge Orders: Discharge ED (Routine); Ordered 08/03/22 Ordered By: Marco Antonio Mcmahon Referrals: Kendra Dixon MD [Primary Care Provider] - Patient Instructions: Opioid Safety Activity Restrictions/Additional Instructions: Home and rest. Activity as tolerated. Try to avoid sling wearing for prolonged periods of time. Try to use her arm as much as possible. Follow-up with primary care in 3 to 5 days for recheck. Return to emergency department for worsening symptoms or new concerns. Coding Level of Care Code ED Enrollment Specialist for Shonda Babin Exam Comprehensive
[2022-08-03] MEDS: acetaminophen-codeine 300-30mg Tablet 1 TAB PO (20:35)
--- NOTE | 2022-08-04 09:31 | DCPLANNER ---
Addendum entered by Milly Owusu 09/11/22 14:40: Patient had a follow up appointment scheduled with ortho - patient did attend appointment. Addendum entered by Milly Owusu 08/05/22 10:15: Patient has a follow up appointment scheduled for , August 13, 2022 at 2:[address] Brito at ortho - clinic will call patient with appointment information. Original Note: customer marketing manager had message to schedule a follow up appointment for patient with ortho. customer marketing manager sent patients information to the front office staff at ortho. Patients information will be printed and reviewed. Clinic will call patient with appointment information.
== END 2022-08-03 21:58 | disposition home or self-care (01) ==
PROVIDERS: Emergency Provider Nurse Practitioner Family; PCP Family Medicine
DX: S01.112A Laceration without foreign body of left eyelid and periocular area, initial encounter (principal); S50.02XA Contusion of left elbow, initial encounter; Z87.891 Personal history of nicotine dependence; E11.9 Type 2 diabetes mellitus without complications; E78.5 Hyperlipidemia, unspecified; Z86.73 Personal history of transient ischemic attack (TIA), and cerebral infarction without residual deficits; W01.190A Fall on same level from slipping, tripping and stumbling with subsequent striking against furniture, initial encounter
CPT/HCPCS: 12013; 70450; 72100; 73080; 99284

== ENCOUNTER → 2022-08-13 14:25 | Outpatient (BNVA) | payer MEDICARE, OTHER, SELFPAY | PROVIDERS: PCP Family Medicine; Referring Provider Nurse Practitioner Family; Visit Provider Orthopaedic Surgery | DX: M54.9 Dorsalgia, unspecified (principal); W19.XXXA Unspecified fall, initial encounter; Z98.1 Arthrodesis status | CPT/HCPCS: 99213 ==

== ENCOUNTER → 2022-09-17 12:20 | Outpatient (BNVA) | payer MEDICARE, OTHER, SELFPAY | PROVIDERS: PCP Family Medicine; Visit Provider Nurse Practitioner Family | DX: E11.9 Type 2 diabetes mellitus without complications (principal); Z23 Encounter for immunization; Z87.898 Personal history of other specified conditions; I10 Essential (primary) hypertension; E55.9 Vitamin D deficiency, unspecified; E78.5 Hyperlipidemia, unspecified; U07.1 COVID-19 | CPT/HCPCS: 80053; 80061; 82306; 83036; 84443; 85025 ==

== ENCOUNTER → 2022-10-01 12:00 | Outpatient (BNVA) | payer MEDICARE, OTHER, SELFPAY | PROVIDERS: PCP Family Medicine; Visit Provider Nurse Practitioner Family | DX: M25.50 Pain in unspecified joint (principal) | CPT/HCPCS: 84550; 85651; 86038; 86140; 86200; 86431 ==

== ENCOUNTER → 2023-01-13 11:15 | Outpatient (BNVA) | payer MEDICARE, BC, OTHER, SELFPAY | PROVIDERS: PCP Family Medicine; Visit Provider Internal Medicine Rheumatology | DX: Z79.899 Other long term (current) drug therapy (principal); M45.6 Ankylosing spondylitis lumbar region; M16.0 Bilateral primary osteoarthritis of hip | CPT/HCPCS: 36415; 72170; 73130; 73630; 80076; 82306; 82565; 85025; 85651; 86140; 86160; 86162; 86200; 86235; 86255; 86376; 86431; 86480; 86704; 86803; 86812; 87340; 87517; 99204 ==

== ENCOUNTER → 2023-02-16 09:59 | Outpatient (BNVA) | payer MEDICARE, BC, OTHER, SELFPAY | PROVIDERS: PCP Family Medicine; Visit Provider Otolaryngology | DX: H91.91 Unspecified hearing loss, right ear (principal); H81.91 Unspecified disorder of vestibular function, right ear; H93.11 Tinnitus, right ear; D89.89 Other specified disorders involving the immune mechanism, not elsewhere classified | CPT/HCPCS: 99204 ==

== ENCOUNTER 2023-03-03 13:25 | Outpatient (CLI) | payer MEDICARE, BC, OTHER, SELFPAY ==
--- NOTE | 2023-03-03 13:45 | MR_ITS ---
WS: [id number] MRI BRAIN WITH HIGH-RESOLUTION IMAGING THROUGH THE INTERNAL AUDITORY CANALS WITHOUT AND WITH CONTRAST HISTORY: vertigo COMPARISON: MRI head 12/31/2016 TECHNIQUE: Multiplanar, multisequence imaging is performed through the brain. Additional 3 mm imaging performed in multiple planes through the internal auditory canal. Postcontrast imaging with 20 ml's of MultiHance. No acute intracranial hemorrhage, midline shift, edema or mass effect. Stable area of increased T2 signal at the LEFT frontal vertex is similar to the study from 2017. Very mild small vessel ischemic disease with no prior infarcts. Ventricles and extra-axial spaces are normal. No inferior displacement of cerebellar tonsils. Clivus and pituitary gland are normal. Internal and external auditory canals: Unremarkable. Cranial nerves VII and VIII complexes: Unremarkable. No enhancement or mass. Cerebellopontine angles: Normal. Paranasal sinuses: Normal. Mastoid air cells: Normal. Calvarium and scalp: Hyperostosis frontalis interna. Visualized [facility] [place] and dural venous sinuses demonstrate no abnormality. MR/MR iac's wo/w con* [id number] IMPRESSION: 1. Unremarkable MRI of the internal auditory canals. No mass or abnormal enhan cement. 2. Normal cerebellopontine angles. 3. Stable area of gliosis involving the LEFT frontal vertex. 4. Very mild small vessel ischemic disease with no prior infarct.
[2023-03-03] MEDS: gadobenate dimeglumine 20 mL vial IV (15:07)
== END 2023-03-03 13:26 | disposition home or self-care (01) ==
PROVIDERS: PCP Family Medicine; Visit Provider Otolaryngology
DX: H93.11 Tinnitus, right ear (principal); H81.90 Unspecified disorder of vestibular function, unspecified ear; H91.91 Unspecified hearing loss, right ear; I67.82 Cerebral ischemia
CPT/HCPCS: 70553; A9577

== ENCOUNTER → 2023-03-09 09:20 | Outpatient (BNVA) | payer MEDICARE, BC, OTHER, SELFPAY | PROVIDERS: PCP Family Medicine; Visit Provider Internal Medicine Rheumatology | DX: M19.90 Unspecified osteoarthritis, unspecified site (principal); Z79.899 Other long term (current) drug therapy; Z71.85 Encounter for immunization safety counseling; R76.8 Other specified abnormal immunological findings in serum | CPT/HCPCS: 99214 ==

== ENCOUNTER → 2023-05-31 14:17 | Outpatient (BNVA) | payer MEDICARE, BC, OTHER, SELFPAY | PROVIDERS: PCP Family Medicine; Visit Provider Nurse Practitioner Family | DX: R05.9 Cough, unspecified (principal); M19.90 Unspecified osteoarthritis, unspecified site; Z79.899 Other long term (current) drug therapy; J02.9 Acute pharyngitis, unspecified; J32.9 Chronic sinusitis, unspecified; L30.9 Dermatitis, unspecified | CPT/HCPCS: 80076; 82565; 85025; 86140; 87071; 87426; 87880 ==

== ENCOUNTER 2023-08-03 15:15 | Outpatient (CLI) | payer MEDICARE, BC, OTHER, SELFPAY ==
--- NOTE | 2023-08-03 15:30 | USR_ITS ---
PROCEDURE INFORMATION: Exam: US Soft Tissue Head and Neck, Thyroid Exam date and time: 08/03/2023 3:35 PM Age: 72 years old Clinical indication: Condition or disease; Thyroid disorder; Other: Nontoxic single thyroid nodule; Additional info: E04.1 - nontoxic single thyroid nodule, call [phone] TECHNIQUE: Imaging protocol: Real-time ultrasound scan of the neck with image documentation. Exam focused on the thyroid. COMPARISON: CT angio headneck* [id number] 03/31/2021 8:00 PM FINDINGS: The right lobe measures 4.5 x 1.4 x 1.4 cm. Left lobe measures 4.0 x 1.7 x 1.2 cm. The isthmus measures 3 mm in thickness. There is an approximately 7 mm slightly hypoechoic solid nodule in the upper pole of the right lobe. Immediately adjacent to that is about a 4 mm solid nodule. These have well-defined borders. There is a cyst in the left lobe. The isthmus is normal. In the area the patient's palpable concern superior to the thyroid is a 1.4 x 1.0 x 0.5 cm solid slightly hyperechoic nodule which is indeterminate. It is fairly homogeneous and demonstrates no increased vascularity. US/US thyroid [id number] IMPRESSION: Two small low suspicion nodules in the right low as described above. One year follow-up is recommended. Indeterminate. Lung nodule correlates to the palpable finding of the thyroid. Consider MRI for further evaluation if clinically warranted.
== END 2023-08-03 15:16 | disposition home or self-care (01) ==
LOC: RAD 15:16
PROVIDERS: PCP Family Medicine; Visit Provider Nurse Practitioner Family
DX: E04.1 Nontoxic single thyroid nodule (principal)
CPT/HCPCS: 76536

== ENCOUNTER 2023-08-19 11:53 | Outpatient (CLI) | payer MEDICARE, BC, OTHER, SELFPAY ==
--- NOTE | 2023-08-19 12:00 | CT_ITS ---
WS: [id number] CT chest w con* [id number] HISTORY: R05.3 - Chronic cough TECHNIQUE: Axial imaging performed through the thorax. Coronal and sagittal reformats are submitted. All CT scans at [facility] use at least one of these dose optimization techniques: automated exposure control; mA and/or kV adjustment per patient size (includes targeted exams where dose is mat ched to clinical indication); or iterative reconstruction. CONTRAST: Omnipaque 350; 100 mL IV. DLP: 523.98 mGy.cm COMPARISON: None available. Lungs and central airway: Mild dependent changes posteriorly. There are no masses or nodules. There i s very slight interstitial thickening in the periphery of the posterior lung martinez. No pleural effus ion. Pleura: Normal. No pleural effusion. Heart and pericardium: Normal size heart with no pericardial effusion. Mediastinum and raina: No mediastinum or hilar adenopathy. Vessels: Normal size aortic and pulmonary artery. No coronary artery calcifications. Chest wall and lower neck: No soft tissue masses. Upper abdomen: Prior cholecystectomy. LEFT lobe hepatic cyst 11 mm. Osseous structures: Patient is status post extensive posterior thoracolumbar fusion. T11 mild anterio r wedging. IMPRESSION: 1. Mild interstitial lung disease. No mass or pneumonia. 2. No adenopathy. 3. Prior cholecystectomy. 4. LEFT hepatic cyst.
--- NOTE | 2023-08-19 12:30 | CT_ITS ---
WS: [id number] CT NECK WITH CONTRAST HISTORY: E04.1 - Nontoxic single thyroid nodule TECHNIQUE: Contiguous 2 mm axial images are performed through the neck with intravenous contrast. Sag ittal and coronal reformats are also submitted. All CT scans at [facility] use at least one o f these dose optimization techniques: automated exposure control; mA and/or kV adjustment per patient size (includes targeted exams where dose is matched to clinical indication); or iterative reconstruc tion. CONTRAST: CONTRAST: Omnipaque 350; 100 mL IV. DLP: 205.84 mGy.cm COMPARISON: None available. Nasopharynx, oropharynx, hypopharynx and larynx are unremarkable. No soft tissue masses or abnormal e nhancement. Torus tubarius and fossa of Rosenmuller and parapharyngeal fat are normal. Palpable marker is placed along the inferior LEFT neck. Just deep to the palpable marker is a normal sternocleidomastoid muscle and jugular vein. No mass or nodule. No significant cervical chain lymph n odes. There are a few normal cervical chain lymph nodes. These are not enlarged and maintain fatty hi la. There are small bilateral thyroid nodules. Parotid glands are negative. No osseous abnormalities. Visualized portions of the skull base demonstrate no abnormalities. Orbits and globes are within norm al limits. No soft tissue masses. Visualized paranasal sinuses and mastoid air cells are normal. Lung apices are clear. IMPRESSION: 1. No suspicious mass at the site of the palpable nodules along the inferior LEFT neck. 2. No significant adenopathy. Bilateral, subcentimeter thyroid nodules.
[2023-08-19] MEDS: iohexol 350 mg/mL 500 mL Btl (per mL) IV ×2 (12:34→12:35)
== END 2023-08-19 11:54 | disposition home or self-care (01) ==
LOC: RAD 11:54
PROVIDERS: PCP Family Medicine; Visit Provider Nurse Practitioner Family
DX: R05.3 Chronic cough (principal); R91.1 Solitary pulmonary nodule; E04.2 Nontoxic multinodular goiter; E55.9 Vitamin D deficiency, unspecified; E78.5 Hyperlipidemia, unspecified; J84.9 Interstitial pulmonary disease, unspecified
CPT/HCPCS: 70491; 71260; 80053; 80061; 82306; 82607; 83735; 84439; 84443; 85025; Q9967

== ENCOUNTER → 2023-10-08 09:51 | Outpatient (BNVA) | payer MEDICARE, BC, OTHER, SELFPAY | PROVIDERS: PCP Family Medicine; Visit Provider Nurse Practitioner Family | DX: R19.7 Diarrhea, unspecified (principal); R30.0 Dysuria | CPT/HCPCS: 81003; 87045; 87077; 87086; 87177; 87184; 87209; 87338; 87427; 87449 ==

== ENCOUNTER → 2023-10-18 09:08 | Outpatient (BNVA) | payer MEDICARE, BC, OTHER, SELFPAY | PROVIDERS: PCP Family Medicine; Visit Provider Internal Medicine Rheumatology | DX: Z79.899 Other long term (current) drug therapy (principal); M19.90 Unspecified osteoarthritis, unspecified site; Z71.85 Encounter for immunization safety counseling; R76.8 Other specified abnormal immunological findings in serum | CPT/HCPCS: 99214 ==

== ENCOUNTER → 2023-10-19 08:22 | Outpatient (BNVA) | payer MEDICARE, BC, OTHER, SELFPAY | PROVIDERS: PCP Family Medicine; Referring Provider Nurse Practitioner Family; Visit Provider Internal Medicine | DX: U07.1 COVID-19 (principal); E04.1 Nontoxic single thyroid nodule; R49.0 Dysphonia; R13.10 Dysphagia, unspecified | CPT/HCPCS: 99204 ==

== ENCOUNTER → 2023-10-28 14:04 | Outpatient (BNVA) | payer MEDICARE, BC, OTHER, SELFPAY | PROVIDERS: PCP Family Medicine; Referring Provider Internal Medicine; Visit Provider Otolaryngology | DX: R13.14 Dysphagia, pharyngoesophageal phase; K21.9 Gastro-esophageal reflux disease without esophagitis; H81.90 Unspecified disorder of vestibular function, unspecified ear; H91.91 Unspecified hearing loss, right ear; H93.11 Tinnitus, right ear; E04.1 Nontoxic single thyroid nodule; D89.89 Other specified disorders involving the immune mechanism, not elsewhere classified; R76.8 Other specified abnormal immunological findings in serum | CPT/HCPCS: 31575; 99214; 99215 ==

== ENCOUNTER → 2023-11-02 11:39 | Outpatient (BNVA) | payer MEDICARE, BC, OTHER, SELFPAY | PROVIDERS: PCP Family Medicine; Visit Provider Specialist | DX: G62.89 Other specified polyneuropathies (principal); Z87.39 Personal history of other diseases of the musculoskeletal system and connective tissue; M70.61 Trochanteric bursitis, right hip | CPT/HCPCS: 20610; 95886; 95910; J1030 ==

== ENCOUNTER 2023-11-17 08:25 | Outpatient (CLI) | payer MEDICARE, BC, OTHER, SELFPAY ==
--- NOTE | 2023-11-17 08:30 | FL_ITS ---
WS: [id number] Barium swallow and esophagram, 11/17/2023 Clinical Data: Difficulty swallowing since May 2024 Comparison: None. Fluoroscopy time: 1min [id number] # of spot films: 25 Findings: The patient swallowed the thick and thin barium, and it flowed through the hypopharynx without hesita tion. No stricture, mass, polyp or erosion was seen. There is impingement onto the posterior hypophar ynx by osteoarthritic spurring C4-C7. The barium entered the esophagus and there were poor contractions throughout the esophagus was patul ous. There was a sliding hiatal hernia with minimal reflux. No erosion, polyp, mass, fistula, strictu re or erosion was seen. The barium passed normally into the stomach. Impression: 1. Moderate posterior impingement onto the posterior hypopharynx by osteoarthritic spurring C4-C7. 2. Poor esophageal contractions. 3. Small hiatal hernia with minimal gastroesophageal reflux.
== END 2023-11-17 08:26 | disposition home or self-care (01) ==
LOC: RAD 08:26
PROVIDERS: PCP Family Medicine; Visit Provider Otolaryngology
DX: R13.14 Dysphagia, pharyngoesophageal phase (principal); K21.9 Gastro-esophageal reflux disease without esophagitis; K44.9 Diaphragmatic hernia without obstruction or gangrene
CPT/HCPCS: 74220

== ENCOUNTER → 2023-11-24 09:29 | Outpatient (BNVA) | payer MEDICARE, BC, OTHER, SELFPAY | PROVIDERS: PCP Family Medicine; Visit Provider Otolaryngology | DX: R13.14 Dysphagia, pharyngoesophageal phase (principal); M25.78 Osteophyte, vertebrae; K22.4 Dyskinesia of esophagus; K44.9 Diaphragmatic hernia without obstruction or gangrene; E04.1 Nontoxic single thyroid nodule | CPT/HCPCS: 99214 ==

== ENCOUNTER 2023-12-28 16:02 | Outpatient (CLI) | payer MEDICARE, BC, OTHER, SELFPAY ==
--- NOTE | 2023-12-28 16:00 | MM_ITS ---
WS: [email or web address] BILATERAL 3D TOMOSYNTHESIS DIGITAL SCREENING MAMMOGRAM WITH CAD CLINICAL INFORMATION: SCREENING HISTORY: Screening mammogram. No current complaints. COMPARISON: 2020 TECHNIQUE: Bilateral CC and MLO views. FINDINGS: Fatty-replaced breasts bilaterally. No suspicious focal mass, asymmetry, calcifications, or bpm solution architect ural distortion. No evidence of malignancy. A few incidental secretory calcifications IMPRESSION: MM/[place] [id number] BI-RADS: 2-Benign FOLLOW UP: 1 Year Follow-up Recommend return to annual screening mammography.
== END 2023-12-28 16:03 | disposition home or self-care (01) ==
LOC: MOBLMAM 16:12
PROVIDERS: PCP Family Medicine; Visit Provider Family Medicine
DX: Z12.31 Encounter for screening mammogram for malignant neoplasm of breast (principal)
CPT/HCPCS: 77063; 77067

== ENCOUNTER → 2024-01-27 08:18 | Outpatient (BNVA) | payer MEDICARE, BC, OTHER, SELFPAY | PROVIDERS: PCP Family Medicine; Visit Provider Internal Medicine | DX: E04.1 Nontoxic single thyroid nodule (principal); R13.14 Dysphagia, pharyngoesophageal phase; R49.0 Dysphonia; K86.89 Other specified diseases of pancreas; K44.9 Diaphragmatic hernia without obstruction or gangrene; E11.9 Type 2 diabetes mellitus without complications; Z79.899 Other long term (current) drug therapy | CPT/HCPCS: 99214 ==

== ENCOUNTER → 2024-02-09 14:38 | Outpatient (BNVA) | payer MEDICARE, BC, OTHER, SELFPAY | PROVIDERS: PCP Family Medicine; Referring Provider Internal Medicine; Visit Provider Surgery | DX: Z87.19 Personal history of other diseases of the digestive system (principal); K20.90 Esophagitis, unspecified without bleeding; K21.9 Gastro-esophageal reflux disease without esophagitis | CPT/HCPCS: 99204 ==

== ENCOUNTER → 2024-02-23 10:18 | Outpatient (BNVA) | payer MEDICARE, BC, OTHER, SELFPAY | PROVIDERS: PCP Family Medicine; Visit Provider Nurse Practitioner Family | DX: R76.8 Other specified abnormal immunological findings in serum (principal); M19.90 Unspecified osteoarthritis, unspecified site | CPT/HCPCS: 80076; 82565; 85025; 86140 ==

== ENCOUNTER 2024-03-30 10:00 | Day surgery (SDC) | payer MEDICARE, BC, OTHER, SELFPAY ==
--- NOTE | 2024-03-30 10:23 | W.PM.OPSFHP ---
Same Day Surgery H&P Indication for Procedure/HPI DATE OF PROCEDURE: March 30, 2024 CHIEF COMPLAINT/INDICATIONFOR SURGICAL PROCEDURE: history of hiatal hernia PREOP DIAGNOSIS: history of hiatal hernia PLANNED PROCEDURE: Operation Date: 03/30/24 11:15 Proposed Procedures p [id number], K21.9, K29.70(Not Applicable) - Florian Oneill MD Medications/Allergies* Home Medications Medication Instructions Recorded Confirmed Type fluticasone propionate 50 1 spray intranasal .prn 10/18/19 02/28/24 History mcg/actuation nasal spray,suspension oxybutynin chloride 15 mg 15 mg PO ONCE 02/09/24 02/28/24 History tablet,extended release 24 hr hydrochlorothiazide 12.5 mg tablet 12.5 mg PO DAILY 02/25/24 02/28/24 History Allergies/Adverse Reactions Allergy/AdvReac Type Severity Reaction Status Date / Time pregabalin Allergy Unknown ALGY-Rash Verified 02/28/24 09:40 hydrocodone AdvReac ADR-Itching Verified 02/28/24 09:40 leflunomide AdvReac itching Verified 02/28/24 09:40 and flushing Pertinent History/Comorbid Conditions* Medical History (Updated 01/27/24 @ 09:18 by Martine Mathews MD) Positive AP (antinuclear antibody) Allergies Lupus Rheumatoid arthritis Fibromyalgia Immunization counseling High risk medication use Inflammatory arthritis GERD (gastroesophageal reflux disease) Trochanteric bursitis, right hip Degenerative joint disease of right hip Hyperlipidemia Recurrent UTI TIA (transient ischemic attack) H/O chronic pancreatitis Seizure disorder FH: total abdominal hysterectomy and bilateral salpingo-oophorectomy Urgency incontinence Diabetes Vaginal voiding Nocturnal and diurnal enuresis Polyuria Surgical History (Updated 02/26/22 @ 11:08 by Pedrito Brito DO) History of back surgery H/O arthroscopic knee surgery H/O shoulder surgery H/O cataract extraction S/P inguinal hernia repair H/O breast biopsy Family History (Updated 07/01/20 @ 16:22 by Daniel Spence MD) Father, at age 90 Mother, at age 72 Diabetes Family/Other Cancer Mother Pancreatic Father Esophageal Brother Hodgkin's lymphoma Hypertension Mother Stroke Family/Other Social History Smoking and tobacco/nicotine status: former use of tobacco/nicotine Quit status (tobacco/nicotine): has quit using Year quit tobacco: 1989 Alcohol intake: never Substance/Drug Use: never Marital status: Current occupational status: retired Pertinent Exam Findings alert, oriented x 3, clear to auscultation bilaterally and regular rate & rhythm Recommendations Surgery/Procedure today Coding Level of Care Code Acute Code for Chg Fwd
--- NOTE | 2024-03-30 10:36 | ANES.PREANE2 ---
Pre-Anesthetic Assessment Height/Weight: Height 1.68 m Preop Diagnosis: history of hiatal hernia Operation Date: 03/30/24 11:15 Proposed Procedures p [id number], K21.9, K29.70(Not Applicable) - Florian Oneill MD Familial anesthetic complications: TIA post spinal surgery 3 years prior. Was Beta Liz taken within 24 hours: Yes Social No alcohol and No tobacco Exam alert, oriented x 3, clear to auscultation bilaterally and regular rate & rhythm Airway Submandibular: within normal limits Cervical ROM: Other (very limited due to RA) Mallampati: Class I Dentition: full Pulmonary previous lung nodule following. history of BANDAR not current per patient. CV/HEM Hypertension None reported Hepatic None reported GI Gastroesophageal Reflux Disease and Hiatal Hernia Metabolic Hyperlipidemia and Thyroid Disease (nodules see Dr. Harvey note) Musc/skel Lower Back Pain, Osteoarthritis/DJD and Rheumatoid Arthritis Neuropsych Anxiety, Depression, Seizure (3 years prior denies medication or active diagnosis of seizure disorder.) and Transient Ischemic Attack (post spine surgery) Anesthetic Plan ASA status: 3 Anesthesia: MAC Medications/Allergies Home Medications Medication Instructions Recorded Confirmed Last Taken Type fluticasone propionate 50 1 spray intranasal .prn 10/18/19 03/30/24 03/29/24 History mcg/actuation nasal spray,suspension Shoe Lift #1 ea 01/08/22 03/30/24 03/29/24 Rx ondansetron HCl 4 mg tablet 4 mg PO QID PRN nausea and 09/23/23 03/30/24 03/29/24 Rx vomiting #60 tabs [id number] See Rx Instructions .Route 12/10/23 03/30/24 03/29/24 Rx 24,000-76,000-120,000 unit .COMPLEX #250 caps capsule,delayed rel (Creon) oxybutynin chloride 15 mg 15 mg PO ONCE 02/09/24 03/30/24 03/29/24 History tablet,extended release 24 hr folic acid 1 mg tablet 1 mg PO DAILY #30 tabs 02/16/24 03/30/24 03/29/24 Rx hydrochlorothiazide 12.5 mg tablet 12.5 mg PO DAILY 02/25/24 03/30/24 03/29/24 History solifenacin 10 mg tablet 10 mg PO DAILY #30 tabs 03/15/24 03/30/24 03/29/24 Rx atorvastatin 20 mg tablet 20 mg PO DAILY #30 tabs 03/20/24 03/30/24 03/29/24 Rx buspirone 10 mg tablet 100 mg (10 x 10 mg) PO BID #60 tabs 03/20/24 03/30/24 03/29/24 Rx losartan 100 mg tablet 100 mg PO DAILY #30 tabs 03/20/24 03/30/24 03/29/24 Rx methotrexate sodium 2.5 mg tablet See Rx Instructions PO .Q7days #30 03/20/24 03/30/24 03/29/24 Rx tabs metoprolol succinate 25 mg 25 mg PO BID #60 tabs 03/20/24 03/30/24 03/30/24 Rx tablet,extended release 24 hr pantoprazole 40 mg tablet,delayed 40 mg PO DAILY #30 tabs 03/20/24 03/30/24 03/29/24 Rx release venlafaxine 75 mg capsule,extended See Rx Instructions .Route 03/20/24 03/30/24 03/29/24 Rx release 24 hr .COMPLEX #90 caps Allergies Allergy/AdvReac Type Severity Reaction Status Date / Time pregabalin Allergy Unknown ALGY-Rash Verified 03/30/24 10:38 hydrocodone AdvReac ADR-Itching Verified 03/30/24 10:38 leflunomide AdvReac itching Verified 03/30/24 10:38 and flushing PFSH Anesthesia Medical History Positive AP (antinuclear antibody) Allergies Lupus Rheumatoid arthritis Fibromyalgia Immunization counseling High risk medication use Inflammatory arthritis GERD (gastroesophageal reflux disease) Trochanteric bursitis, right hip Degenerative joint disease of right hip Hyperlipidemia Recurrent UTI TIA (transient ischemic attack) H/O chronic pancreatitis Seizure disorder FH: total abdominal hysterectomy and bilateral salpingo-oophorectomy Urgency incontinence Diabetes Vaginal voiding Nocturnal and diurnal enuresis Polyuria Surgical History History of back surgery H/O arthroscopic knee surgery H/O shoulder surgery H/O cataract extraction S/P inguinal hernia repair H/O breast biopsy Family History Mother , at age 72 Hypertension Cancer Pancreatic Family/Other Diabetes Stroke Father , at age 90 Cancer Esophageal Brother Cancer Hodgkin's lymphoma Social History Smoking and tobacco/nicotine status: former use of tobacco/nicotine Quit status (tobacco/nicotine): has quit using Year quit tobacco: 1989 Alcohol intake: never Substance/Drug Use: never Marital status: Current occupational status: retired Data Anesthesia Cardiac Studies: No Data to Display
[2024-03-30 10:47] VITALS: BP 160/103; PULSE 73; RESP 18; TEMP 36.8; O2SAT 97
[2024-03-30] MEDS: sodium chloride 0.9% 1,000 ML 30 ML IV (10:48)
[2024-03-30 11:09] VITALS: BP 117/65; PULSE 71; RESP 16; TEMP 36.4; O2SAT 96
[2024-03-30 11:14] VITALS: BP 142/70; PULSE 68; RESP 18; O2SAT 99
--- NOTE | 2024-03-30 12:00 | ANE.PACU2 ---
Inpatient post-anesthesia follow up: Airway intact: Yes Vital signs: Temperature 97.6 F Pulse Rate 68 Respiratory Rate 18 Blood Pressure 142/70 Pulse Oximetry 99 Oxygen Delivery Me thod Room Air Oxygen Flow Rate Fraction of Inspir ed Oxygen Hydration adequate: Yes Nausea and vomiting: No Pain level: 1 Mental status: Baseline
== END 2024-03-30 12:00 | disposition home or self-care (01) ==
PROVIDERS: PCP Family Medicine; Visit Provider Surgery
PROC: 0DJ08ZZ Inspection of Upper Intestinal Tract, Via Natural or Artificial Opening Endoscopic (ICD-10-PCS; CPT 43235; principal; 2024-03-30 11:15)
DX: K21.9 Gastro-esophageal reflux disease without esophagitis (principal); K29.70 Gastritis, unspecified, without bleeding; K44.9 Diaphragmatic hernia without obstruction or gangrene; Z86.73 Personal history of transient ischemic attack (TIA), and cerebral infarction without residual deficits; I10 Essential (primary) hypertension; E78.5 Hyperlipidemia, unspecified; M06.9 Rheumatoid arthritis, unspecified; F41.9 Anxiety disorder, unspecified; F32.A Depression, unspecified; Z87.891 Personal history of nicotine dependence
CPT/HCPCS: 43239; 88305; J2704; J7030

== ENCOUNTER → 2024-04-05 14:55 | Outpatient (BNVA) | payer MEDICARE, BC, OTHER, SELFPAY | PROVIDERS: PCP Family Medicine; Visit Provider Nurse Practitioner Family | DX: M54.41 Lumbago with sciatica, right side (principal); M54.42 Lumbago with sciatica, left side; G89.29 Other chronic pain; E11.9 Type 2 diabetes mellitus without complications; E55.9 Vitamin D deficiency, unspecified; N32.81 Overactive bladder; R00.2 Palpitations; Z79.899 Other long term (current) drug therapy | CPT/HCPCS: 80053; 80061; 81000; 82306; 82607; 83036; 84443; 85025 ==

== ENCOUNTER → 2024-04-26 09:15 | Outpatient (BNVA) | payer MEDICARE, BC, OTHER, SELFPAY | PROVIDERS: PCP Family Medicine; Visit Provider Surgery | DX: Z09 Encounter for follow-up examination after completed treatment for conditions other than malignant neoplasm (principal) | CPT/HCPCS: 99213 ==

== ENCOUNTER → 2024-06-19 14:59 | Outpatient (BNVA) | payer MEDICARE, BC, OTHER, SELFPAY | PROVIDERS: PCP Family Medicine; Visit Provider Internal Medicine Rheumatology | DX: Z79.899 Other long term (current) drug therapy (principal); M19.90 Unspecified osteoarthritis, unspecified site | CPT/HCPCS: 80076; 82565; 85025; 85651; 86140 ==

== ENCOUNTER → 2024-06-22 14:09 | Outpatient (BNVA) | payer MEDICARE, BC, OTHER, SELFPAY | PROVIDERS: PCP Family Medicine; Visit Provider Internal Medicine Rheumatology | DX: M19.90 Unspecified osteoarthritis, unspecified site (principal); R76.8 Other specified abnormal immunological findings in serum; Z79.899 Other long term (current) drug therapy; M70.61 Trochanteric bursitis, right hip; Z71.85 Encounter for immunization safety counseling | CPT/HCPCS: 20610; 72072; 72100; 99214; J1010 ==

== ENCOUNTER → 2024-10-12 12:59 | Outpatient (BNVA) | payer MEDICARE, BC, SELFPAY | PROVIDERS: PCP Nurse Practitioner Family; Visit Provider Nurse Practitioner Family | DX: N39.0 Urinary tract infection, site not specified (principal); I10 Essential (primary) hypertension; U07.1 COVID-19; E55.9 Vitamin D deficiency, unspecified; Z79.899 Other long term (current) drug therapy; E11.9 Type 2 diabetes mellitus without complications; N10 Acute pyelonephritis; K12.0 Recurrent oral aphthae | CPT/HCPCS: 80053; 80061; 81000; 82306; 82607; 83036; 84443; 85025; 87086 ==

== ENCOUNTER → 2024-10-19 14:11 | Outpatient (BNVA) | payer MEDICARE, BC, SELFPAY | PROVIDERS: PCP Nurse Practitioner Family; Visit Provider Internal Medicine Rheumatology | DX: Z79.899 Other long term (current) drug therapy (principal); Z71.85 Encounter for immunization safety counseling; R76.8 Other specified abnormal immunological findings in serum; M06.041 Rheumatoid arthritis without rheumatoid factor, right hand; M06.042 Rheumatoid arthritis without rheumatoid factor, left hand; M47.814 Spondylosis without myelopathy or radiculopathy, thoracic region; M47.816 Spondylosis without myelopathy or radiculopathy, lumbar region | CPT/HCPCS: 99214 ==

== ENCOUNTER → 2025-01-10 11:46 | Outpatient (BNVA) | payer MEDICARE, BC, SELFPAY | PROVIDERS: PCP Nurse Practitioner Family; Visit Provider Nurse Practitioner Family | DX: R31.9 Hematuria, unspecified (principal); R39.9 Unspecified symptoms and signs involving the genitourinary system; K59.00 Constipation, unspecified; Z98.1 Arthrodesis status; Z90.49 Acquired absence of other specified parts of digestive tract | CPT/HCPCS: 74018; 81000; 87086 ==

== ENCOUNTER → 2025-01-31 14:21 | Outpatient (BNVA) | payer MEDICARE, BC, SELFPAY | PROVIDERS: PCP Nurse Practitioner Family; Visit Provider Nurse Practitioner Family | DX: R30.0 Dysuria (principal); N39.0 Urinary tract infection, site not specified | CPT/HCPCS: 81003; 87086 ==

== ENCOUNTER → 2025-03-01 11:27 | Outpatient (BNVA) | payer MEDICARE, BC, SELFPAY | PROVIDERS: PCP Nurse Practitioner Family; Visit Provider Nurse Practitioner Family | DX: N39.0 Urinary tract infection, site not specified (principal); R39.9 Unspecified symptoms and signs involving the genitourinary system | CPT/HCPCS: 80048; 81000; 85025; 87086 ==

== ENCOUNTER → 2025-04-03 14:51 | Outpatient (BNVA) | payer MEDICARE, BC, SELFPAY | PROVIDERS: PCP Nurse Practitioner Family; Visit Provider Nurse Practitioner Family | DX: R39.9 Unspecified symptoms and signs involving the genitourinary system (principal) | CPT/HCPCS: 81000 ==

== ENCOUNTER → 2025-04-09 12:57 | Outpatient (BNVA) | payer MEDICARE, BC, SELFPAY | PROVIDERS: PCP Nurse Practitioner Family; Visit Provider Nurse Practitioner Family | DX: N39.0 Urinary tract infection, site not specified (principal) | CPT/HCPCS: 87077; 87086; 87184 ==

== ENCOUNTER → 2025-05-31 14:01 | Outpatient (BNVA) | payer MEDICARE, BC, SELFPAY | PROVIDERS: PCP Nurse Practitioner Family; Visit Provider Nurse Practitioner Family | DX: N39.0 Urinary tract infection, site not specified (principal) | CPT/HCPCS: 87086 ==

== ENCOUNTER → 2025-06-20 11:13 | Outpatient (BNVA) | payer MEDICARE, BC, SELFPAY | PROVIDERS: PCP Nurse Practitioner Family; Visit Provider Podiatrist Foot & Ankle Surgery | DX: L84 Corns and callosities (principal); M21.612 Bunion of left foot; I73.9 Peripheral vascular disease, unspecified | CPT/HCPCS: 99203 ==

== ENCOUNTER → 2025-06-27 11:33 | Outpatient (BNVA) | payer MEDICARE, BC, SELFPAY | PROVIDERS: PCP Nurse Practitioner Family; Visit Provider Nurse Practitioner Family | DX: D64.9 Anemia, unspecified (principal); R79.89 Other specified abnormal findings of blood chemistry | CPT/HCPCS: 80069; 85025 ==

== ENCOUNTER → 2025-07-03 13:23 | Outpatient (BNVA) | payer MEDICARE, BC, SELFPAY | PROVIDERS: PCP Nurse Practitioner Family; Visit Provider Nurse Practitioner Family | DX: R79.89 Other specified abnormal findings of blood chemistry (principal) | CPT/HCPCS: 80048 ==

== ENCOUNTER → 2025-08-22 08:15 | Outpatient (BNVA) | payer MEDICARE, BC, SELFPAY | PROVIDERS: PCP Nurse Practitioner Family; Visit Provider Internal Medicine Cardiovascular Disease | DX: R07.9 Chest pain, unspecified (principal); Z01.810 Encounter for preprocedural cardiovascular examination; I10 Essential (primary) hypertension; R06.09 Other forms of dyspnea; I49.1 Atrial premature depolarization; Z86.73 Personal history of transient ischemic attack (TIA), and cerebral infarction without residual deficits; Z87.891 Personal history of nicotine dependence; R06.02 Shortness of breath | CPT/HCPCS: 93005; 99204 ==

== ENCOUNTER → 2025-08-30 11:57 | Outpatient (BNVA) | payer MEDICARE, BC, SELFPAY | PROVIDERS: PCP Nurse Practitioner Family; Visit Provider Internal Medicine Cardiovascular Disease | DX: E55.9 Vitamin D deficiency, unspecified (principal); D64.9 Anemia, unspecified; R79.89 Other specified abnormal findings of blood chemistry; E04.1 Nontoxic single thyroid nodule; I10 Essential (primary) hypertension; E11.9 Type 2 diabetes mellitus without complications; E78.5 Hyperlipidemia, unspecified; Z79.899 Other long term (current) drug therapy; R06.02 Shortness of breath | CPT/HCPCS: 80053; 80061; 82306; 82607; 83036; 83735; 83880; 85025 ==

== ENCOUNTER → 2025-09-12 10:40 | Outpatient (BNVA) | payer MEDICARE, BC, SELFPAY | PROVIDERS: PCP Nurse Practitioner Family; Visit Provider Nurse Practitioner Family | DX: D64.9 Anemia, unspecified (principal) | CPT/HCPCS: 82607; 82728; 83550; 85025 ==